=== PATIENT | female | born 1950 | race Caucasian/White ===

== ENCOUNTER → 2016-11-27 | Outpatient (CLI) | payer BC ==
[~2016-11-27] MED LIST: BRAIN HEALTH PO; CALC500C70 PO; COQ-10 PO; MULT-506 PO; VITAMIN D3 PO
--- NOTE | 2016-11-27 11:34 | DIAGNOSTIC IMAGING REPORT ---
RIGHT KNEE 2 VIEWS HISTORY: RIGHT KNEE PAIN Right COMPARISON: None. FINDINGS: There is no fracture or dislocation. Small knee effusion. 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 No radiopaque foreign bodies. IMPRESSION: No fractures. Small knee effusion. Electronically signed by: Juancarlos Covarrubias M.D. 11/27/2016 11:32 AM Dictated Date/Time: 11/27/2016 11:31 AM
== END | disposition home or self-care (01) ==
LOC: C.RADBC 11:16
PROVIDERS: ATTEND Internal Medicine
DX: M25.461 Effusion, right knee (principal); M25.561 Pain in right knee

== ENCOUNTER → 2017-12-08 | Outpatient (CLI) | payer OTHER ==
--- NOTE | 2017-12-09 15:17 | MAMMOGRAPHY REPORT ---
BILATERAL DIGITAL SCREENING MAMMOGRAM TOMOSYNTHESIS WITH CAD: 12/08/2017 CLINICAL HISTORY: Routine screening. The patient reported to the technologist that her left breast lo oks different and appears [place] than the right breast. She also reports new left nipple inversion f or a few months. TECHNIQUE: Breast tomosynthesis in addition to standard 2D mammography was performed. Current study was also evaluated with a Computer Aided Detection (CAD) system. COMPARISON: Comparison is made to exams dated: 10/24/2015 mammogram, 01/09/2013 mammogram, 11/30/2011 ma mmogram, 11/06/2010 mammogram, 10/31/2009 mammogram - [facility], and 08/13/2008. BREAST COMPOSITION: The tissue of both breasts is heterogeneously dense, which may obscure small mas ses. FINDINGS: There are no suspicious masses, calcifications, or areas of architectural distortion noted in either breast. There has been no significant interval change compared to prior exams. Scattered bilateral benign-appearing calcifications are not significantly changed. Right superior breast asymm etry is stable. IMPRESSION: ACR BI-RADS CATEGORY 0: INCOMPLETE EVALUATION: NEED ADDITIONAL IMAGING EVALUATION No mammographic evidence of malignancy in either breast. However, the patient reported to the techno logist that she has left breast fullness and new left nipple inversion. As the recommended workup fo r new nipple inversion involves mammograms and targeted ultrasound, recommend additional imaging eval uation with targeted ultrasound. The patient will be called to schedule an appointment. Approximately 10% of breast cancers are not detected with mammography. A negative mammographic report should not delay biopsy if a clinically suggestive mass is present. Bailee Camp M.D. /:12/08/2017 16:43:00 Respiratory Care Assistant: Carolyn MATHEW(Belen)(Vladislav), [facility] letter sent: Addl Imaging 0 BI-RADS Code: ACR BI-RADS Category 0: Incomplete Evaluation: Need Additional Imaging Evaluation
== END | disposition home or self-care (01) ==
LOC: C.MAMM 14:38
PROVIDERS: ATTEND Internal Medicine Geriatric Medicine
DX: Z12.31 Encounter for screening mammogram for malignant neoplasm of breast (principal); N64.59 Other signs and symptoms in breast

== ENCOUNTER 2024-02-16 20:13 | Inpatient (IN) ==
[2024-02-16 21:12] LABS: Basophils # (auto) 0.03 K/uL (0.00-0.20); Basophils % (auto) 0.3 %; Eosinophils # (auto) 0.19 K/uL (0.00-0.50); Eosinophils % (auto) 1.7 %; Hematocrit (blood only) 41.7 % (37.0-47.0); Hemoglobin 13.9 g/dl (12.0-16.0); Immature Granulocytes # (auto) 0.04 K/uL (0.01-0.20); Immature Granulocytes % (auto) 0.4 %; Lymphocytes # (auto) 2.41 K/uL (1.20-3.40); Lymphocytes % (auto) 21.5 %; Mean Corpuscular Hemoglobin 33.3 pg (25.0-34.0); Mean Corpuscular Hgb Conc 33.3 g/dL (32.0-36.0); Mean Corpuscular Volume 99.8 fL (80.0-100.0); Mean Platelet Volume 8.8 fL (9.4-12.4); Monocytes # (auto) 1.03 K/uL (0.11-0.59); Monocytes % (auto) 9.2 %; Neutrophils # (auto) 7.51 K/uL (1.40-6.50); Neutrophils % (auto) 66.9 %; Platelet Count 291 K/uL (130-400); RDW Coefficient of Variation 13.2 % (11.5-14.5); RDW Standard Deviation 48.7 fL (36.4-46.3); Red Blood Count 4.18 M/uL (4.20-5.40); White Blood Count 11.21 K/ul (4.8-10.8)
[2024-02-16 21:22] LABS: Alanine Aminotransferase 36 U/L (7-52); Albumin Globulin Ratio 1.3 (0.9-2); Albumin Level 4.1 gm/dl (3.4-5.0); Alkaline Phosphatase 189 U/L (34-104); Anion Gap 11 (3-11); Aspartate Aminotransferase 35 U/L (13-39); Bilirubin,Total 0.4 mg/dl (0.2-1.0); Blood Urea Nitrogen 15 mg/dl (6-23); Calcium 9.7 mg/dl (8.6-10.3); Carbon Dioxide 24 mmol/L (21-32); Chloride 103 mmol/L (98-107); Est GFR (African American) 92.9 ml/min; Est GFR (Non-African American) 80.2 ml/min; Globulin 3.1 gm/dl (2.5-4.0); Glucose 134 mg/dl (70-99(Fasting)); Potassium 4.1 mmol/L (3.5-5.1); Sodium 138 mmol/L (136-145); Total Protein 7.2 gm/dl (6.0-8.3)
[2024-02-16 21:29] LABS: Troponin I High Sensitivity 3.1 pg/ml (0-14)
[2024-02-16 21:31] LABS: Partial Thromboplastin Ratio 0.9; Partial Thromboplastin Time 25 Seconds (21-31); Prothrombin Time 10.5 Seconds (9.0-12.0)
--- NOTE | 2024-02-16 22:47 | Emergency Department Note ---
Impression & Plan Pulmonary embolism, Pulmonary embolism with infarction, Back pain, Advanced dementia, Acute UTI, History of subarachnoid hemorrhage ED Provider Note NAME: MAYNOR OLIVARES AGE: 73 SEX: F : 1950 ARRIVES VIA: Walk-In INFORMANT: Patient ED PROVIDER(S): Srinivas Powers MD CHIEF COMPLAINT: Back pain PLAN: Disposition: Admit MEDICAL DECISION MAKING: The patient is a 73-year-old woman with a past medical history of advanced dementia with a recent history of trauma where she fell from a ladder on 12/04 of this year where she suffered a right hip fracture and subarachnoid hemorrhage as well as a temporal bone fracture where she was transferred to [facility] where she was managed for her injuries who presents to the emergency department via walk-in accompanied by her for evaluation of the patient's complaint of left back/flank pain which the patient's reports she only began to complain of today. He describes that the patient had been on Lovenox twice daily when he was at [facility] for rehab and she was on this for approximately a month before it was discontinued. He is not clear of the details as to why this was administered. He is somewhat of a poor historian regarding the patient's recent complicated medical course as when we discussed the "blood in her brain" his initial response was that she did not have blood in her brain and recalls being told that her CT scans "were good". Upon further discussion he admits that it was a very stressful time and he may have missed some of these details. He did recall that she had a skull fracture "behind her ear". Of note, the patient did arrive to emergency department during time of high volume, acuity and prolonged emergency department waiting times. Critical pathways initiated from triage. On evaluation the patient medical distress, afebrile with heart rate in the 80s- 100s and O2 saturation 91-94% on room air with normal respiratory effort and otherwise stable vital signs. She appears clinically dry. Lungs with diminished breath sounds of left mid lung ziegler and otherwise clear. EKG without overt acute ischemia. CXR negative with left midlung field airspace opacity, which correlates with infarct on CT per my preliminary independent interpretation. WBC 11.2 K with neutrophil predominance but no left shift, nonspecific. H/H and platelets within normal limits. Chemistry without metabolic acidosis. Electrolytes and LFTs unremarkable. High-sensitivity troponin 3.1, within normal limits. UA is suspicious for infection with positive nitrites, WBCs and 4+ bacteria. CT a of the chest was performed and demonstrates extensive bilateral pulmonary emboli involving bilateral main pulmonary arteries, segmental and subsegmental levels. There is borderline right heart strain with a one-to-one LV/RV ratio. Additional focal consolidation consistent with pulmonary infarct. Findings reviewed with the patient's at the bedside and we did discuss at length the risks and benefits of treatment given the patient's recent subarachnoid hemorrhage. We did discuss that even if the patient's CAT scan of her head which was subsequently ordered does not show evidence of persistence of her prior subarachnoid hemorrhage the possibility of this recurring does exist. He concurs that if this were to happen he would not want and the patient would not want surgical intervention as he does understand that the patient is considered a poor candidate for additional surgeries and would be unlikely to survive as he understood this risk when the patient had surgery for her hip fracture. He is in agreement with admission to this facility for treatment for the patient's pulmonary embolism at this time. Case was discussed with KO Menendez hospitalist, who will evaluate the patient for admission. CT of the head subsequent completed and while limited due to residual IV contrast from prior study, there is no evidence of persistence of SAH. Heparin initiated. Further management per admitting team. Triage Nursing notes reviewed and agree them. Prior/external medical records reviewed Vital Signs: reviewed Differential diagnosis: Cardiac ischemia, aortic dissection, pulmonary embolism, pneumothorax, pneumonia, pericarditis, myocarditis, esophageal rupture, GERD, cholecystitis, pancreatitis, musculoskeletal, as well as other pathologies. ER treatment provided: See below. Diagnostics interpreted by me: ECG: Sinus tachycardia, 104 bpm, no ectopy, no overt ST elevation or depression, QTc 436, QRS 78. Cardiac Monitoring: An order for continuous cardiac monitoring was placed and demonstrated Sinus tachycardia, 104 bpm, no ectopy. Laboratory studies: See below Imaging studies: See below Consultation(s): KO Menendez hospitalist HPI: The patient is a 73-year-old woman with a past medical history of advanced dementia with a recent history of trauma where she fell from a ladder on 12/04 of this year where she suffered a right hip fracture and subarachnoid hemorrhage as well as a temporal bone fracture where she was transferred to [facility] where she was managed for her injuries who presents to the emergency department via walk-in accompanied by her for evaluation of the patient's complaint of left back/flank pain which the patient's reports she only began to complain of today. He describes that the patient had been on Lovenox twice daily when he was at [facility] for rehab and she was on this for approximately a month before it was discontinued. He is not clear of the details as to why this was administered. He is somewhat of a poor historian regarding the patient's recent complicated medical course as when we discussed the "blood in her brain" his initial response was that she did not have blood in her brain and recalls being told that her CT scans "were good". Upon further discussion he admits that it was a very stressful time and he may have missed some of these details. He did recall that she had a skull fracture "behind her ear". ROS: See above HPI for pertinent positives & negatives. A total of 10 systems reviewed and were otherwise negative. VITALS:See Below PHYSICAL EXAMINATION: GENERAL: Awake, alert, in no distress HENT: Normocephalic, atraumatic. Oropharynx unremarkable. EYES: Normal conjunctiva. Sclera non-icteric. NECK: Supple. No nuchal rigidity. FROM. No JVD. RESPIRATORY: Diminished breath sounds of left mid to lower lung ziegler and otherwise clear. CARDIAC: Regular rate, normal rhythm. Extremities warm and well perfused. Pulses equal. ABDOMEN: Soft, non-distended. No tenderness to palpation. No rebound or guarding. No masses. MUSCULOSKELETAL: Chest examination reveals no tenderness. The back is symmetrical on inspection without obvious abnormality. There is no CVA tenderness to palpation. No joint edema. LOWER EXTREMITIES: Calves are equal size bilaterally and non-tender. No edema. No discoloration. NEURO: Confused at patient's baseline for advanced dementia. No focal sensory or motor deficits noted. Moving all extremities equally. SKIN: No rash or jaundice noted. ED COURSE: Critical Care: I have personally spent greater than 35 minutes of critical care time in the direct management of this patient. This includes bedside care, interpretation of diagnostic studies, and testing, discussion with consultants, patient, and family members, and other required patient management activities. This 35 minutes is in excess of all separately billable procedures. Srinivas Powers MD Past Med/Surg History Problem List (Updated 02/17/24 @ 07:02 by Srinivas Powers MD) History of subarachnoid hemorrhage (Acute) Acute UTI (Acute) Advanced dementia (Acute) Back pain (Acute) Pulmonary embolism with infarction (Acute) Pulmonary embolism (Acute) Subdural hemorrhage Traumatic subarachnoid hemorrhage Hip fracture, right (12/05/23) displaced right intertrochanteric femur fracture from a fall off a ladder-had orthopedic surgery at [facility] in [place] Dementia in other diseases classified elsewhere, unspecified severity, without behavioral disturbance, psychotic disturbance, mood disturbance, and anxiety Urinary incontinence Urinary urgency Dyslipidemia Medical History (Updated 02/17/24 @ 07:02 by Srinivas Powers MD) Hx of fracture of right hip (~11/2023) Intramedullary nail fixation right hip History of colon polyps Poor historian pt had difficulty remembering some of her health status/issues when asked 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 Surgical History History of tooth extraction Hx of colonoscopy with polypectomy 04/2021 repeat 5 yrs S/P tonsillectomy and adenoids Family History Father Prostate cancer Dementia Hypertension Mother Diabetes Heart disease Hypertension Grandmother Breast cancer Grandmother (Maternal) Myocardial infarction Other No family history of adverse response to anesthesia Denies family history of Ovarian cancer Lung cancer Colorectal cancer Social History Smoking Status: Unknown if ever smoked Second Hand Exposure: No; Do You Dip or Chew Tobacco: No; Hx Alcohol Use: No Hx Substance Use: No Preferred Language: [place] Communication Ability: Impaired Communication Ability Comment: pt has history of dementia and struggles to follow commands but is able Visual Impairment: Limited Hearing Ability: Normal Activity Aide Required: No Beliefs That Will Affect Care: None marital status: Current Living Situation: Spouse and Family current occupational status: employed 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 How many Children do You have: 2 Other Information That Helps Us Care for You: No Feels Safe at Home: Yes Safety Concerns: Feels Safe At This Time Childhood Exposure to Second-Hand Smoke: Yes caffeine: Yes (very seldom) Dental Care, Regularly: Yes Physical Activity Frequency: Does not Exercise Seatbelt Use: always Sunscreen Use: No Assistive Devices: Walker Allergies Allergies Allergy/AdvReac Type Severity Reaction Status Date / Time No Known Drug Allergies Allergy 0 Verified 02/17/24 01:23 Home Meds Home Medications Medication Instructions Recorded Confirmed Unknown Acid Reflux Med 1 tab PO DAILY 02/17/24 02/17/24 acetaminophen 500 mg tablet 1,000 mg PO TID 02/17/24 02/17/24 (Tylenol Extra Strength) memantine 10 mg tablet 10 mg PO BID 02/17/24 02/17/24 Results & Data (ED) Vital Signs Vital Signs - 24 hr 02/16/24 20:19 02/16/24 22:23 02/16/24 22:23 Temperature 37.0 C Temperature Source Oral Pulse Rate 100 H Pulse Rate [Apical] 82 Pulse Rhythm [Apical] Pulse Strength [Apical] Respiratory Rate 20 13 Respiratory Effort / Characteristics Non-Labored Spontaneous Respiratory Depth Normal Respiratory Pattern Regular Blood Pressure 128/87 Blood Pressure [Right Arm] 114/65 Blood Pressure Mean 100 Blood Pressure Mean [Right Arm] 81 Blood Pressure Position [Right Arm] Pulse Oximetry 92 93 92 Oxygen Delivery Method Room Air Room Air Room Air Sepsis Recent Fever Within 48 Hours No Sepsis New/Unexplained Change in Mental Status No Sepsis Action Taken by Nursing No Action Required 02/16/24 22:23 02/16/24 22:31 02/16/24 22:59 Temperature Temperature Source Pulse Rate 83 81 Pulse Rate [Apical] 79 Pulse Rhythm [Apical] Pulse Strength [Apical] Respiratory Rate 20 19 Respiratory Effort / Characteristics Non-Labored Spontaneous Respiratory Depth Normal Respiratory Pattern Regular Blood Pressure Blood Pressure [Right Arm] 132/80 Blood Pressure Mean Blood Pressure Mean [Right Arm] 97 Blood Pressure Position [Right Arm] Pulse Oximetry 91 93 Oxygen Delivery Method Room Air Room Air Sepsis Recent Fever Within 48 Hours Sepsis New/Unexplained Change in Mental Status Sepsis Action Taken by Nursing 02/17/24 02:00 02/17/24 02:42 Temperature Temperature Source Pulse Rate 86 Pulse Rate [Apical] 88 Pulse Rhythm [Apical] Regular Pulse Strength [Apical] Normal Respiratory Rate 18 Respiratory Effort / Characteristics Non-Labored Spontaneous Respiratory Depth Normal Respiratory Pattern Regular Blood Pressure Blood Pressure [Right Arm] 157/98 H Blood Pressure Mean Blood Pressure Mean [Right Arm] 117 Blood Pressure Position [Right Arm] Lying Pulse Oximetry 93 Oxygen Delivery Method Room Air Sepsis Recent Fever Within 48 Hours Sepsis New/Unexplained Change in Mental Status Sepsis Action Taken by Nursing Laboratory Data Attestation: I reviewed the patient's lab results. 02/16/24 20:32 02/16/24 20:32 Lab Results 02/16/24 02/17/24 Range/Units 20:32 00:53 WBC 11.21 H (4.8-10.8) K/ul RBC 4.18 L (4.20-5.40) M/uL Hgb 13.9 (12.0-16.0) g/dl Hct 41.7 (37.0-47.0) % MCV 99.8 (80.0-100.0) fL MCH 33.3 (25.0-34.0) pg MCHC 33.3 (32.0-36.0) g/dL RDW Std Deviation 48.7 H (36.4-46.3) fL RDW Coeff of [place] 13.2 (11.5-14.5) % Plt Count 291 (130-400) K/uL MPV 8.8 L (9.4-12.4) fL Immature Gran % (Auto) 0.4 % Neut % (Auto) 66.9 % Lymph % (Auto) 21.5 % [place] % (Auto) 9.2 % Eos % (Auto) 1.7 % Baso % (Auto) 0.3 % Neut # (Auto) 7.51 H (1.40-6.50) K/uL Lymph # (Auto) 2.41 (1.20-3.40) K/uL [place] # (Auto) 1.03 H (0.11-0.59) K/uL Eos # (Auto) 0.19 (0.00-0.50) K/uL Baso # (Auto) 0.03 (0.00-0.20) K/uL Immature Gran # (Auto) 0.04 (0.01-0.20) K/uL PT 10.5 (9.0-12.0) Seconds INR 1.0 (0.9-1.1) APTT 25 (21-31) Seconds PTT Ratio 0.9 Sodium 138 (136-145) mmol/L Potassium 4.1 (3.5-5.1) mmol/L Chloride 103 (98-107) mmol/L Carbon Dioxide 24 (21-32) mmol/L Anion Gap 11 (3-11) BUN 15 (6-23) mg/dl Creatinine 0.75 (0.6-1.2) mg/dl Est Cr Clr Drug Dosing Not Reportable Est GFR ( Amer) 92.9 ml/min Est GFR (Non-Af Amer) 80.2 ml/min BUN/Creatinine Ratio 20.0 (10-20) Glucose 134 H (70-99(Fasting)) mg/dl Calcium 9.7 (8.6-10.3) mg/dl Total Bilirubin 0.4 (0.2-1.0) mg/dl AST 35 (13-39) U/L ALT 36 (7-52) U/L Alkaline Phosphatase 189 H (34-104) U/L Troponin I High Sens 3.1 (0-14) pg/ml Total Protein 7.2 (6.0-8.3) gm/dl Albumin 4.1 (3.4-5.0) gm/dl Globulin 3.1 (2.5-4.0) gm/dl Albumin/Globulin Ratio 1.3 (0.9-2) Urine Color Yellow Urine Appearance Clear (Clear) Urine pH 6.5 (4.5-7.5) Ur Specific [place] 1.034 H (1.000-1.030) Urine Protein Negative (Negative) Urine Glucose (UA) Negative (Negative) Urine Ketones Negative (Negative) Urine Blood Trace H (Negative) Urine Nitrite Positive A (Negative) Urine Bilirubin Negative (Negative) Urine Urobilinogen Negative (Negative) Ur Leukocyte Esterase 1+ H (Negative) Urine WBC (Auto) 11-20 H (0-5) /hpf Urine RBC (Auto) 0-2 (0-2) /hpf U Hyaline Cast (Auto) 0-2 (0-2) /lpf U Epithel Cells (Auto) 0-2 (0-2) /hpf Urine Bacteria (Auto) 4+ H (None Seen) Administered Medications Heparin Sodium/Dextrose (Heparin Sodium/Dextrose) 25,000 units in 500 mls @ 14 mls/hr IV .Q24H [facility], 1928–1983; Protocol Stop: 02/17/24 09:00 Last Admin: 02/17/24 04:28 Dose: 700 units/hr, 14 mls/hr Documented By: EMB Co-signed By: BRET Lactated Ringer's (Lr) 1,000 mls @ 80 mls/hr IV .[id number] OLIVIER Stop: 02/17/24 17:59 Last Admin: 02/17/24 05:58 Dose: 80 mls/hr Documented By: BRET Discontinued Medications Heparin Sodium (Porcine) (Heparin Sod (Porcine) 1000 Unit/Ml) 1 units IV NOW ONE Stop: 02/17/24 03:37 Last Admin: 02/17/24 04:27 Dose: 4,000 units Documented By: BELLE Co-signed By: BRET Heparin Sodium/Dextrose (Heparin Iv Adult Wt-Based Low-Dose W/ Initial Bolus Protocol) 1 each IV NOW STA; Protocol Stop: 02/17/24 03:21 Last Admin: 02/17/24 05:29 Dose: Not Given Documented By: BRET Sodium Chloride (Nss) 1,000 mls @ 999 mls/hr IV .[id number] ONE Stop: 02/16/24 23:39 Last Infusion: 02/17/24 00:58 Dose: Infused Documented By: Admin: 02/16/24 22:57 Dose: 999 mls/hr Documented By: SANA Acetaminophen (Ofirmev) 1,000 mg in 100 mls @ 400 mls/hr IV NOW STA Stop: 02/16/24 22:54 Last Admin: 02/16/24 22:56 Dose: Not Given Documented By: SANA Ceftriaxone Sodium (Rocephin) 2,000 mg in 50 mls @ 100 mls/hr IV NOW STA Stop: 02/17/24 03:49 Last Infusion: 02/17/24 04:58 Dose: Infused Documented By: Admin: 02/17/24 04:27 Dose: 100 mls/hr Documented By: BELLE Ioversol (Optiray 320 125ml) 118 ml IV ONCE ONE Stop: 02/17/24 00:19 Last Admin: 02/17/24 00:19 Dose: 118 ml Documented By: MARTHA Imaging Data Radiologist's Impression: Abdomen/Pelvis CT 02/16/24 22:39 Exam(s): CT ABDOMEN + PELVIS With Contrast IV Amt: 118 ml opti 320 EXAM: CT Abdomen and Pelvis With Intravenous Contrast CLINICAL HISTORY: left flank pain. TECHNIQUE: Axial computed tomography images of the abdomen and pelvis with intravenous contrast. CTDI is 26.9 mGy and DLP is 1965.75 mGy-cm. Automated exposure control was utilized for the study. A dose lowering technique was utilized adhering to the principles of ALARA. CONTRAST: Patient received 118 ml opti 320 of IV contrast COMPARISON: CT abdomen and pelvis with contrast dated 12/05/2023 FINDINGS: Limitations: There is respiratory artifact, which degrades image quality on multiple image slices. Lung bases: For significant findings regarding the lung bases, please see the CT report of the chest performed concurrently. ABDOMEN: Liver: Unremarkable. No mass. Gallbladder and bile ducts: Unremarkable. No calcified stones. No ductal dilation. Pancreas: Unremarkable. No mass. No ductal dilation. Spleen: Unremarkable. No splenomegaly. Adrenals: Unremarkable. No mass. Kidneys and ureters: The kidneys demonstrate normal enhancement without pyelonephritis. Parapelvic renal cysts noted. No obstructive ureteral stones. Stomach and bowel: Stomach is predominantly decompressed. Mucosal prominence of the stomach is presumed related to underdistention. No evidence for bowel obstruction. Scattered diverticulosis without evidence for diverticulitis. Moderate stool burden. PELVIS: Appendix: A normal caliber retrocecal appendix is noted. Bladder: Unremarkable. No mass. Reproductive: Prominent left ovarian vein measuring up to 9 mm. ABDOMEN and PELVIS: Intraperitoneal space: Unremarkable. No free air. No significant fluid collection. Bones/joints: No acute osseous abnormality with chronic loss of height involving the superior endplate at L1 level. Grade 1 anterolisthesis of L4 on L5, stable. No dislocation. Soft tissues: Unremarkable. Vasculature: See above. The aorta is normal in caliber without dissection or aneurysm. Lymph nodes: Unremarkable. No enlarged lymph nodes. IMPRESSION: 1. No evidence for bowel obstruction. Scattered diverticulosis without evidence for diverticulitis. Moderate stool burden. No free intraperitoneal fluid or pneumoperitoneum. 2. The kidneys demonstrate normal enhancement without pyelonephritis. Parapelvic renal cysts noted. No obstructive ureteral stones. No bladder calcifications. 3. Prominent left ovarian vein measuring up to 9 mm. Statistically this is an incidental finding. However, ovarian varicosities have been known to cause vague clinical pelvic symptoms. Electronically signed by: Pradeep Alejandra MD 02/17/24 03:02 AM Chest CTA 02/16/24 22:39 CR Exam(s): CTA CHEST IV Amt: 118 ml opti 320 EXAM: CT Angiography Chest With Intravenous Contrast CLINICAL HISTORY: left cp, r/o PE. TECHNIQUE: Axial computed tomographic angiography images of the chest with intravenous contrast. CTDI is 26.9 mGy and DLP is 1965.7 mGy-cm. Automated exposure control was utilized for the study. A dose lowering technique was utilized adhering to the principles of ALARA. MIP reconstructed images were created and reviewed. COMPARISON: No relevant prior studies available. FINDINGS: Pulmonary arteries: Bilateral pulmonary emboli extending from the distal right and distal left main pulmonary arteries into the proximal segmental and subsegmental branch serving both lungs, left greater than right. Aorta: The thoracic aorta is normal in caliber without dissection or aneurysm. Lungs: Dependent subsegmental changes in involving both lungs. In addition, there is ill-defined ground-glass opacity in the peripheral aspect of the posterior lateral left upper lobe. Pleural space: Unremarkable. No significant effusion. No pneumothorax. Heart: Cardiac chambers are upper normal limits. The RV/LV ratio is 1 on reformatted imaging through the cardiac chambers. No pericardial effusion. Bones/joints: No acute fracture. No dislocation. Soft tissues: Unremarkable. Lymph nodes: Unremarkable. No enlarged lymph nodes. IMPRESSION: 1. Bilateral pulmonary emboli extending from the distal right and distal left main pulmonary arteries into the proximal segmental and subsegmental branch serving both lungs, left greater than right. Oblique imaging through the cardiac chambers demonstrates borderline right heart strain with the RV/LV ratio at 1. 2. Dependent subsegmental changes in involving both lungs. In addition, there is ill-defined ground-glass opacity in the peripheral aspect of the posterior lateral left upper lobe. Suspect a CT equivalent of a Cooper's hump in this region. No pleural effusion or pneumothorax. Communications: Call Doctor Pulmonary Embolism Electronically signed by: Pradeep Alejandra MD 02/17/24 02:[address] 02/17/24 03:06 Exam(s): CT HEAD Without Contrast EXAM: CT Head Without Intravenous Contrast CLINICAL HISTORY: history of SAH, re-evaluate. TECHNIQUE: Axial computed tomography images of the head/brain without intravenous contrast. CTDI is 75.29 mGy and DLP is 1250.21 mGy-cm. Automated exposure control was utilized for the study. A dose lowering technique was utilized adhering to the principles of ALARA. COMPARISON: CT head without contrast performed 12/05/2023 FINDINGS: Brain: There is residual intravascular contrast which limits evaluation for subtle subarachnoid hemorrhage. Diffuse parenchymal involutional changes with prominence of the cerebral sulci and sylvian fissures, most prominent involving the anterior left temporal region and left sylvian fissure. Ventricles: No midline shift. The ventricles are stable and size with slight asymmetric ex vacuo dilatation of the left lateral ventricle. The anterior transverse diameter of the third ventricle measures 11 mm from 10 mm previously. Bones/joints: Stable nondisplaced skull fracture with lucency through the left petrous ridge and mastoid air cells with minimal mastoid effusions, stable. The fracture extends superiorly to involve the left parietal temporal region, similar to the previous examination. No interval new skull fracture. Soft tissues: The previously noted soft tissue swelling overlying the skull fracture has resolved. Vasculature: Asymmetric hyperdensity in the right sylvian fissure is presumed related to vascular branches and less prominent atrophy when compared to the contralateral sylvian fissure. No intraparenchymal hematoma. No new mass effect. Sinuses: Unremarkable as visualized. No acute sinusitis. Mastoid air cells: Trace left mastoid effusions in the region of the temporal bone fracture. No right-sided mastoid effusions noted. IMPRESSION: 1. There is residual intravascular contrast which limits evaluation for subtle subarachnoid hemorrhage. No definite evidence for recurrent subarachnoid hemorrhage. No intraparenchymal hemorrhagic collection identified. 2. Chronic underlying parenchymal involutional changes, similar to the previous examination. No new mass effect or midline shift. 3. The previously noted skull fracture is again identified without interval healing. No interval new skull fracture identified. The previously noted overlying soft tissue swelling is resolved. Electronically signed by: Pradeep Alejandra MD 02/17/24 05:32 AM Abdomen/Pelvis CT 02/16/24 22:39 Exam(s): CT ABDOMEN + PELVIS With Contrast IV Amt: 118 ml opti 320 EXAM: CT Abdomen and Pelvis With Intravenous Contrast CLINICAL HISTORY: left flank pain. TECHNIQUE: Axial computed tomography images of the abdomen and pelvis with intravenous contrast. CTDI is 26.9 mGy and DLP is 1965.75 mGy-cm. Automated exposure control was utilized for the study. A dose lowering technique was utilized adhering to the principles of ALARA. CONTRAST: Patient received 118 ml opti 320 of IV contrast COMPARISON: CT abdomen and pelvis with contrast dated 12/05/2023 FINDINGS: Limitations: There is respiratory artifact, which degrades image quality on multiple image slices. Lung bases: For significant findings regarding the lung bases, please see the CT report of the chest performed concurrently. ABDOMEN: Liver: Unremarkable. No mass. Gallbladder and bile ducts: Unremarkable. No calcified stones. No ductal dilation. Pancreas: Unremarkable. No mass. No ductal dilation. Spleen: Unremarkable. No splenomegaly. Adrenals: Unremarkable. No mass. Kidneys and ureters: The kidneys demonstrate normal enhancement without pyelonephritis. Parapelvic renal cysts noted. No obstructive ureteral stones. Stomach and bowel: Stomach is predominantly decompressed. Mucosal prominence of the stomach is presumed related to underdistention. No evidence for bowel obstruction. Scattered diverticulosis without evidence for diverticulitis. Moderate stool burden. PELVIS: Appendix: A normal caliber retrocecal appendix is noted. Bladder: Unremarkable. No mass. Reproductive: Prominent left ovarian vein measuring up to 9 mm. ABDOMEN and PELVIS: Intraperitoneal space: Unremarkable. No free air. No significant fluid collection. Bones/joints: No acute osseous abnormality with chronic loss of height involving the superior endplate at L1 level. Grade 1 anterolisthesis of L4 on L5, stable. No dislocation. Soft tissues: Unremarkable. Vasculature: See above. The aorta is normal in caliber without dissection or aneurysm. Lymph nodes: Unremarkable. No enlarged lymph nodes. IMPRESSION: 1. No evidence for bowel obstruction. Scattered diverticulosis without evidence for diverticulitis. Moderate stool burden. No free intraperitoneal fluid or pneumoperitoneum. 2. The kidneys demonstrate normal enhancement without pyelonephritis. Parapelvic renal cysts noted. No obstructive ureteral stones. No bladder calcifications. 3. Prominent left ovarian vein measuring up to 9 mm. Statistically this is an incidental finding. However, ovarian varicosities have been known to cause vague clinical pelvic symptoms. Electronically signed by: Pradeep Alejandra MD 02/17/24 03:02 AM Chest CTA 02/16/24 22:39 CR Exam(s): CTA CHEST IV Amt: 118 ml opti 320 EXAM: CT Angiography Chest With Intravenous Contrast CLINICAL HISTORY: left cp, r/o PE. TECHNIQUE: Axial computed tomographic angiography images of the chest with intravenous contrast. CTDI is 26.9 mGy and DLP is 1965.7 mGy-cm. Automated exposure control was utilized for the study. A dose lowering technique was utilized adhering to the principles of ALARA. MIP reconstructed images were created and reviewed. COMPARISON: No relevant prior studies available. FINDINGS: Pulmonary arteries: Bilateral pulmonary emboli extending from the distal right and distal left main pulmonary arteries into the proximal segmental and subsegmental branch serving both lungs, left greater than right. Aorta: The thoracic aorta is normal in caliber without dissection or aneurysm. Lungs: Dependent subsegmental changes in involving both lungs. In addition, there is ill-defined ground-glass opacity in the peripheral aspect of the posterior lateral left upper lobe. Pleural space: Unremarkable. No significant effusion. No pneumothorax. Heart: Cardiac chambers are upper normal limits. The RV/LV ratio is 1 on reformatted imaging through the cardiac chambers. No pericardial effusion. Bones/joints: No acute fracture. No dislocation. Soft tissues: Unremarkable. Lymph nodes: Unremarkable. No enlarged lymph nodes. IMPRESSION: 1. Bilateral pulmonary emboli extending from the distal right and distal left main pulmonary arteries into the proximal segmental and subsegmental branch serving both lungs, left greater than right. Oblique imaging through the cardiac chambers demonstrates borderline right heart strain with the RV/LV ratio at 1. 2. Dependent subsegmental changes in involving both lungs. In addition, there is ill-defined ground-glass opacity in the peripheral aspect of the posterior lateral left upper lobe. Suspect a CT equivalent of a Cooper's hump in this region. No pleural effusion or pneumothorax. Communications: Call Doctor Pulmonary Embolism Electronically signed by: Pradeep Alejandra MD 02/17/24 02:[address] 02/17/24 03:06 Exam(s): CT HEAD Without Contrast EXAM: CT Head Without Intravenous Contrast CLINICAL HISTORY: history of SAH, re-evaluate. TECHNIQUE: Axial computed tomography images of the head/brain without intravenous contrast. CTDI is 75.29 mGy and DLP is 1250.21 mGy-cm. Automated exposure control was utilized for the study. A dose lowering technique was utilized adhering to the principles of ALARA. COMPARISON: CT head without contrast performed 12/05/2023 FINDINGS: Brain: There is residual intravascular contrast which limits evaluation for subtle subarachnoid hemorrhage. Diffuse parenchymal involutional changes with prominence of the cerebral sulci and sylvian fissures, most prominent involving the anterior left temporal region and left sylvian fissure. Ventricles: No midline shift. The ventricles are stable and size with slight asymmetric ex vacuo dilatation of the left lateral ventricle. The anterior transverse diameter of the third ventricle measures 11 mm from 10 mm previously. Bones/joints: Stable nondisplaced skull fracture with lucency through the left petrous ridge and mastoid air cells with minimal mastoid effusions, stable. The fracture extends superiorly to involve the left parietal temporal region, similar to the previous examination. No interval new skull fracture. Soft tissues: The previously noted soft tissue swelling overlying the skull fracture has resolved. Vasculature: Asymmetric hyperdensity in the right sylvian fissure is presumed related to vascular branches and less prominent atrophy when compared to the contralateral sylvian fissure. No intraparenchymal hematoma. No new mass effect. Sinuses: Unremarkable as visualized. No acute sinusitis. Mastoid air cells: Trace left mastoid effusions in the region of the temporal bone fracture. No right-sided mastoid effusions noted. IMPRESSION: 1. There is residual intravascular contrast which limits evaluation for subtle subarachnoid hemorrhage. No definite evidence for recurrent subarachnoid hemorrhage. No intraparenchymal hemorrhagic collection identified. 2. Chronic underlying parenchymal involutional changes, similar to the previous examination. No new mass effect or midline shift. 3. The previously noted skull fracture is again identified without interval healing. No interval new skull fracture identified. The previously noted overlying soft tissue swelling is resolved. Electronically signed by: Pradeep Alejandra MD 02/17/24 05:32 AM Discharge Plan Visit Data Chief Complaint: Flank Pain Stated Complaint: CONFUSION, BROKEN RT LEG, LT FLANK PAIN ED Provider: Srinivas Powers Discharge Problem: Pulmonary embolism, Pulmonary embolism with infarction, Back pain, Advanced dementia, Acute UTI, History of subarachnoid hemorrhage Discharge Instructions Interventions: ED Discharge Assessment Last Done: 02/17/24 05:25 Discharge Problem: Pulmonary embolism Qualifiers: Pulmonary embolism type: unspecified Chronicity: acute Acute cor pulmonale presence: unspecified Qualified Code(s): I26.99 - Other pulmonary embolism without acute cor pulmonale Back pain Qualifiers: Back pain location: thoracic back pain Chronicity: acute Back pain laterality: left Qualified Code(s): M54.6 - Pain in thoracic spine Advanced dementia Qualifiers: Dementia type: unspecified type Dementia behavioral or psychological symptom: u nspecified whether behavioral, psychotic, or mood disturbance or anxiety Q ualified Code(s): F03.C0 - Unspecified dementia, severe, without behavioral disturbance, psychotic disturbance, mood disturbance, and anxiety
[2024-02-16] MEDS: ACETAMINOPHEN 1,000 MG/100 ML VIAL IV STA (22:56)
[2024-02-16] MEDS: SODIUM CHLORIDE 0.9% 1,000 ML IV ONE (22:57)
[2024-02-17] MEDS: OPTIRAY 320 125ml IV ONE (00:19)
[2024-02-17 01:41] LABS: Appearance Urine Clear (Clear); Bacteria Urine Automated 4+ (None Seen); Bilirubin Urine Negative (Negative); Blood Urine Trace (Negative); Cast Urine Automated 0-2 /lpf (0-2); Color Urine Yellow; Epithelial Cell Urine Auto 0-2 /hpf (0-2); Glucose Urine UA Negative (Negative); Ketones Urine Negative (Negative); Leukocyte Esterase Urine 1+ (Negative); Nitrite Urine Positive (Negative); Protein Urine Negative (Negative); RBC Urine Automated 0-2 /hpf (0-2); Specific Gravity Urine 1.034 (1.000-1.030); Urobilinogen Urine Negative (Negative); pH Urine 6.5 (4.5-7.5)
--- NOTE | 2024-02-17 02:50 | CT Scan Report ---
Exam(s): CTA CHEST IV Amt: 118 ml opti 320 EXAM: CT Angiography Chest With Intravenous Contrast CLINICAL HISTORY: left cp, r/o PE. TECHNIQUE: Axial computed tomographic angiography images of the chest with intravenous contrast. CTDI is 26.9 mGy and DLP is 1965.7 mGy-cm. Automated exposure control was utilized for the study. A dose lowering technique was utilized adhering to the principles of ALARA. MIP reconstructed images were created and reviewed. COMPARISON: No relevant prior studies available. FINDINGS: Pulmonary arteries: Bilateral pulmonary emboli extending from the distal right and distal left main pulmonary arteries into the proximal segmental and subsegmental branch serving both lungs, left greater than right. Aorta: The thoracic aorta is normal in caliber without dissection or aneurysm. Lungs: Dependent subsegmental changes in involving both lungs. In addition, there is ill-defined ground-glass opacity in the peripheral aspect of the posterior lateral left upper lobe. Pleural space: Unremarkable. No significant effusion. No pneumothorax. Heart: Cardiac chambers are upper normal limits. The RV/LV ratio is 1 on reformatted imaging through the cardiac chambers. No pericardial effusion. Bones/joints: No acute fracture. No dislocation. Soft tissues: Unremarkable. Lymph nodes: Unremarkable. No enlarged lymph nodes. IMPRESSION: 1. Bilateral pulmonary emboli extending from the distal right and distal left main pulmonary arteries into the proximal segmental and subsegmental branch serving both lungs, left greater than right. Oblique imaging through the cardiac chambers demonstrates borderline right heart strain with the RV/LV ratio at 1. 2. Dependent subsegmental changes in involving both lungs. In addition, there is ill-defined ground-glass opacity in the peripheral aspect of the posterior lateral left upper lobe. Suspect a CT equivalent of a Cooper's hump in this region. No pleural effusion or pneumothorax. Communications: Call Doctor Pulmonary Embolism Electronically signed by: Pradeep Alejandra MD 02/17/24 02:49 AM
--- NOTE | 2024-02-17 03:03 | CT Scan Report ---
Exam(s): CT ABDOMEN + PELVIS With Contrast IV Amt: 118 ml opti 320 EXAM: CT Abdomen and Pelvis With Intravenous Contrast CLINICAL HISTORY: left flank pain. TECHNIQUE: Axial computed tomography images of the abdomen and pelvis with intravenous contrast. CTDI is 26.9 mGy and DLP is 1965.75 mGy-cm. Automated exposure control was utilized for the study. A dose lowering technique was utilized adhering to the principles of ALARA. CONTRAST: Patient received 118 ml opti 320 of IV contrast COMPARISON: CT abdomen and pelvis with contrast dated 12/05/2023 FINDINGS: Limitations: There is respiratory artifact, which degrades image quality on multiple image slices. Lung bases: For significant findings regarding the lung bases, please see the CT report of the chest performed concurrently. ABDOMEN: Liver: Unremarkable. No mass. Gallbladder and bile ducts: Unremarkable. No calcified stones. No ductal dilation. Pancreas: Unremarkable. No mass. No ductal dilation. Spleen: Unremarkable. No splenomegaly. Adrenals: Unremarkable. No mass. Kidneys and ureters: The kidneys demonstrate normal enhancement without pyelonephritis. Parapelvic renal cysts noted. No obstructive ureteral stones. Stomach and bowel: Stomach is predominantly decompressed. Mucosal prominence of the stomach is presumed related to underdistention. No evidence for bowel obstruction. Scattered diverticulosis without evidence for diverticulitis. Moderate stool burden. PELVIS: Appendix: A normal caliber retrocecal appendix is noted. Bladder: Unremarkable. No mass. Reproductive: Prominent left ovarian vein measuring up to 9 mm. ABDOMEN and PELVIS: Intraperitoneal space: Unremarkable. No free air. No significant fluid collection. Bones/joints: No acute osseous abnormality with chronic loss of height involving the superior endplate at L1 level. Grade 1 anterolisthesis of L4 on L5, stable. No dislocation. Soft tissues: Unremarkable. Vasculature: See above. The aorta is normal in caliber without dissection or aneurysm. Lymph nodes: Unremarkable. No enlarged lymph nodes. IMPRESSION: 1. No evidence for bowel obstruction. Scattered diverticulosis without evidence for diverticulitis. Moderate stool burden. No free intraperitoneal fluid or pneumoperitoneum. 2. The kidneys demonstrate normal enhancement without pyelonephritis. Parapelvic renal cysts noted. No obstructive ureteral stones. No bladder calcifications. 3. Prominent left ovarian vein measuring up to 9 mm. Statistically this is an incidental finding. However, ovarian varicosities have been known to cause vague clinical pelvic symptoms. Electronically signed by: Pradeep Alejandra MD 02/17/24 03:02 AM
[2024-02-17] MEDS ORDERED: POLYETHYLENE (MIRALAX) 17 GM PACK PO PRN (03:43)
[2024-02-17] MEDS ORDERED: ONDANSETRON INJ 2 MG/ML 2 ML VIAL IV PRN (03:43)
--- NOTE | 2024-02-17 04:15 | History & Physical Report ---
Date of Service February 17, 2024 Assessment & Plan (1) Pulmonary embolism: Plan: 73 F with PMH advanced dementia, recent hx subarachnoid, subdural hemorrhage 2/2 fall from ladder in November, who presented with left-sided flank pain and found to have multiple segmental, subsegmental PEs bilaterally. Now stable, admitted for acute management of bilateral PEs. Bilateral Pulmonary Embolism -Multiple, bilateral, segmental, subsegmental, L >R w/ borderline R heart strain. Intermediate/aggressive risk. -WBC 11.2. hs-troponin, electrolytes, LFTs normal. -Only presenting symptom L flank pain. No chest pain/SOB. Saturating well on room air. Rest of VSS. -Recent history of intracranial hemorrhage as detailed in HPI. However, risk of brain bleed does not outweigh benefits of anticoagulation at this time. -S/p IV heparin loading dose, infusion in ER. * Admit to PCU neurochecks+GCS Q 4 x 24 H * Continue heparin infusion, titrate to PTT target per protocol * Bilateral LE Doppler ultrasound ordered stat awaiting report * Apixaban 10 mg twice daily x 7 days (to start in the AM) * Echocardiogram ordered pending * Tylenol p.o. every 8 hours as needed for pain * Trend PTT, anti-Xa, BMP, CBC a.m. labs Traumatic Subarachnoid Hemorrhage/Subdural Hemorrhage -Suffered in November 2023 after fall from ladder. Patient was taken to [facility], where she was managed nonsurgically, also treated for R hip fracture (s /p repair via intramedullary nail). Discharged to [facility], then home. -No evidence of seizure activity Keppra discontinued at discharge. -Follow-ups with neurosurgery, orthopedic, ENT at [facility], though reports unavailable at time of this note. Also undergoing PT/OT. -Per PCP follow-up, confusion worsened since incident but has been unchanged since discharge. * Neurochecks + GCS Q4, as above Dysuria -UA positive for nitrites, bacteriuria (+), leuk esterase (1+), trace hematuria. -Asymptomatic per , and at bedside on admission. -Sent for urine culture * Await microbiology report Dementia -Since 2020. Stable, per last neurology visit report. -Family history of dementia x 4 generations. Memory deficits word finding difficulty, naming difficultyindependent in ADLs. -Follows with [facility] neurology (Dr. Carlota Gonsalez). * Continue home memantine 10 mg twice daily * Seroquel 50 mg nightly for sleep * Scheduled MiraLAX daily Code: Full code Dispo: PCU FEN/GI: LR @maintenance rate. Heart healthy DVT Prophylaxis: Weight-based heparin infusion s/p loading dose, followed by apixaban 10 mg twice daily PT/OT: Yes Consults: None Case Management: Yes (2) Traumatic subarachnoid hemorrhage: (3) Hip fracture, right: (4) Dementia in other diseases classified elsewhere, unspecified severity, without behavioral disturbance, psychotic disturbance, mood disturbance, and anxiety: (5) Dyslipidemia: History of Present Illness Primary Care Provider: Vaughn JeffersonDO Plata is a 73-year-old woman with past medical history significant for advanced dementia, and a recent medical history of R hip fracture, subarachnoid hemorrhage, temporal bone fracture 2/2 trauma sustained after falling from ladder on 12/04 who presented to the ER with her last night with a complaint of left-sided back and flank pain that began a few hours ago. Spoke with over the phone, who explained that she began complaining of left- sided rib pain at approximately 7 PM, but was otherwise fine and went to bed. Patient was awakened by the pain which is worsened, and was now "unbearable." then decided to bring her in for evaluation. He denies chest pain, shortness of breath, or LE pain/swelling. also denies any past medical/family history of blood clots or thrombophilia. ER workup was notable for WBC 11.2, and a UA positive for nitrates, WBC, 4+ bacteria. Hgb, high-sensitivity troponin, electrolytes, LFTs were all unremarkable. CTA chest revealed "bilateral pulmonary emboli extending from the distal right and distal left main pulmonary arteries into the proximal segmental and subsegmental branches are in both lungs, L >R Borderline right heart strain." She received an IV heparin loading dose, and started on the treatment dose the hospitalist service was then consulted for admission. On admission, patient is awake, responsive, and pleasant, but appears confused and disoriented. She denies any acute pain including flank pain, she further denies increased urinary frequency or pain with urination. Allergies Allergy/AdvReac Type Severity Reaction Status Date / Time No Known Drug Allergies Allergy 0 Verified 02/17/24 01:23 Home Medications Medication Instructions Recorded Confirmed Type Unknown Acid Reflux Med 1 tab PO DAILY 02/17/24 02/17/24 History acetaminophen 500 mg tablet 1,000 mg PO TID 02/17/24 02/17/24 History (Tylenol Extra Strength) memantine 10 mg tablet 10 mg PO BID 02/17/24 02/17/24 History Past Med/Surg History Problem List (Updated 02/17/24 @ 04:23 by Irwin Joshua MD) Pulmonary embolism Subdural hemorrhage Traumatic subarachnoid hemorrhage Hip fracture, right (12/05/23) displaced right intertrochanteric femur fracture from a fall off a ladder-had orthopedic surgery at [facility] in [place] Dementia in other diseases classified elsewhere, unspecified severity, without behavioral disturbance, psychotic disturbance, mood disturbance, and anxiety Urinary incontinence Urinary urgency Dyslipidemia Medical History (Updated 02/17/24 @ 04:23 by Irwin Joshua MD) Hx of fracture of right hip (~11/2023) Intramedullary nail fixation right hip History of colon polyps Poor historian pt had difficulty remembering some of her health status/issues when asked 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 Surgical History History of tooth extraction Hx of colonoscopy with polypectomy 04/2021 repeat 5 yrs S/P tonsillectomy and adenoids Family History Father Prostate cancer Dementia Hypertension Mother Diabetes Heart disease Hypertension Grandmother Breast cancer Grandmother (Maternal) Myocardial infarction Other No family history of adverse response to anesthesia Denies family history of Ovarian cancer Lung cancer Colorectal cancer Social History Smoking Status: Unknown if ever smoked Second Hand Exposure: No; Do You Dip or Chew Tobacco: No; Hx Alcohol Use: No Hx Substance Use: No Preferred Language: Croatian Communication Ability: Impaired Communication Ability Comment: pt has history of dementia and struggles to follow commands but is able Visual Impairment: Limited Hearing Ability: Normal District Associate Judge Required: No Beliefs That Will Affect Care: None marital status: Current Living Situation: Spouse and Family current occupational status: employed 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 Normal conjunctiva, anicteric sclera. Oropharynx normal. Respiratory: Normal respiratory effort, CTABL. Cardiovascular: RRR without murmurs, gallops, or rubs. No pedal edema. GI: Soft abdomen with normal bowel sounds heard on auscultation. Nontender x4 quadrants Neuro: Alert and oriented x3. Results & Data Results & Data Vital Signs (Past 12 Hours) Vital Signs Temp Pulse Pulse Resp BP BP Pulse Ox 02/17/24 02:42 86 02/17/24 02:00 88 18 157/98 H 93 02/16/24 22:59 79 19 132/80 93 02/16/24 22:31 81 02/16/24 22:23 83 20 91 02/16/24 22:23 92 02/16/24 22:23 82 13 114/65 93 02/16/24 20:19 37.0 C 100 H 20 128/87 92 O2 Del Method 02/17/24 02:42 02/17/24 02:00 Room Air 02/16/24 22:59 Room Air 02/16/24 22:31 02/16/24 22:23 Room Air 02/16/24 22:23 Room Air 02/16/24 22:23 Room Air 02/16/24 20:19 Room Air Supervising Physician Co-Signing Physician Notes Patient seen and examined, chart reviewed, case discussed with Dr. Joshua and I agree with the assessment and plan as above. Patient with history of TBI following a fall off a ladder on 12/05/23 - had bilateral SAH as well as small right SDH. Completed her rehab and has been at home. Presenting with chest pain - found to have extensive bilateral PEs Exam largely unremarkable - patient HD stable, adequate oxygenation +S1/S2, regular, no m/r/g Lungs CTA, no rales/rhonchi/wheezes Abd soft, NT/ND Ext warm, well perfused Labs and images reviewed Assessment/Plan: Initiate heparin gtt - monitor neuro function Check 2D echo Check bilateral LE dopplers Remainder as above Resident Activity Tracking Resident Involvement: Resident Care Provided Care Provided: Adult Hospital Medicine (1) Pulmonary embolism Pulmonary embolism type: multiple subsegmental (without acute cor pulmonale) Qualified Code(s): I26.94 - Multiple subsegmental pulmonary emboli without acute cor pulmonale
[2024-02-17] MEDS: cefTRIAXone SODIUM 2,000 MG/50 ML BAG IV STA (04:27)
[2024-02-17] MEDS: HEPARIN SOD (PORCINE) 1000 UNIT/ML IV ONE (04:27)
[2024-02-17] MEDS: HEPARIN SODIUM/DEXTROSE 25,000 UNITS/500 ML BAG IV SCH (04:28)
[2024-02-17 04:41] LABS: Partial Thromboplastin Time 26 Seconds (21-31)
[2024-02-17] MEDS: Heparin IV Adult Wt-Based Low-Dose w/ INITIAL Bolus Protocol IV STA (05:29)
--- NOTE | 2024-02-17 05:33 | CT Scan Report ---
Exam(s): CT HEAD Without Contrast EXAM: CT Head Without Intravenous Contrast CLINICAL HISTORY: history of SAH, re-evaluate. TECHNIQUE: Axial computed tomography images of the head/brain without intravenous contrast. CTDI is 75.29 mGy and DLP is 1250.21 mGy-cm. Automated exposure control was utilized for the study. A dose lowering technique was utilized adhering to the principles of ALARA. COMPARISON: CT head without contrast performed 12/05/2023 FINDINGS: Brain: There is residual intravascular contrast which limits evaluation for subtle subarachnoid hemorrhage. Diffuse parenchymal involutional changes with prominence of the cerebral sulci and sylvian fissures, most prominent involving the anterior left temporal region and left sylvian fissure. Ventricles: No midline shift. The ventricles are stable and size with slight asymmetric ex vacuo dilatation of the left lateral ventricle. The anterior transverse diameter of the third ventricle measures 11 mm from 10 mm previously. Bones/joints: Stable nondisplaced skull fracture with lucency through the left petrous ridge and mastoid air cells with minimal mastoid effusions, stable. The fracture extends superiorly to involve the left parietal temporal region, similar to the previous examination. No interval new skull fracture. Soft tissues: The previously noted soft tissue swelling overlying the skull fracture has resolved. Vasculature: Asymmetric hyperdensity in the right sylvian fissure is presumed related to vascular branches and less prominent atrophy when compared to the contralateral sylvian fissure. No intraparenchymal hematoma. No new mass effect. Sinuses: Unremarkable as visualized. No acute sinusitis. Mastoid air cells: Trace left mastoid effusions in the region of the temporal bone fracture. No right-sided mastoid effusions noted. IMPRESSION: 1. There is residual intravascular contrast which limits evaluation for subtle subarachnoid hemorrhage. No definite evidence for recurrent subarachnoid hemorrhage. No intraparenchymal hemorrhagic collection identified. 2. Chronic underlying parenchymal involutional changes, similar to the previous examination. No new mass effect or midline shift. 3. The previously noted skull fracture is again identified without interval healing. No interval new skull fracture identified. The previously noted overlying soft tissue swelling is resolved. Electronically signed by: Pradeep Alejandra MD 02/17/24 05:32 AM
[2024-02-17] MEDS: LACTATED RINGER'S 1,000 ML IV SCH (05:58)
--- NOTE | 2024-02-17 06:46 | Billing Data ---
Date of Service February 17, 2024 Coding Level of Care Code 61038 INT INP/OBS CARE
--- NOTE | 2024-02-17 07:01 | Ultrasound Report ---
BILATERAL LOWER EXTREMITY VENOUS DOPPLER HISTORY: Acute pain and swelling of the lower legs b/l PE COMPARISON STUDY: None. FINDINGS: Within the right lower leg thrombus extends from the mid femoral vein into the popliteal ve in and also involves the posterior tibial and peroneal veins and gastrocnemius veins. Thrombus is occ lusive and likely acute. No left-sided deep venous thrombosis identified. Superficial thrombus noted within the left lesser sa phenous vein at the level of the midcalf extending for a length of greater than 5 cm. IMPRESSION: 1. Extensive right-sided DVT as above. 2. Superficial venous thrombosis of the left lower extremity. ACT 112: Negative or not required by law. Electronically signed by: Sunny Carvajal M.D. 02/17/2024 6:59 AM
--- NOTE | 2024-02-17 07:40 | XRay Report ---
XR chest 1V not portable HISTORY: 73 years-old Female Chest pain, nonspecific COMPARISON: CTA chest of same day TECHNIQUE: AP view of the chest FINDINGS: Cardiac silhouette is enlarged. Pulmonary vascular congestion. No pneumothorax or large pleural effus ion. Mild bibasilar opacities. Left mid lung/lingular airspace consolidation/pulmonary infarct. Sigmo id thoracolumbar scoliosis. IMPRESSION: 1. Cardiomegaly with pulmonary vascular congestion and bibasilar atelectasis. 2. Left mid lung peripheral consolidation compatible with pulmonary infarct related to the patient's extensive pulmonary emboli. ACT 112: Negative or not required by law. The above report was generated using voice recognition software. It may contain grammatical, syntax o r spelling errors. Electronically signed by: Sunny Carvajal M.D. 02/17/2024 7:39 AM
[2024-02-17] MEDS: MEMANTINE HCL 10 MG TAB PO SCH (10:45)
[2024-02-17] MEDS: POLYETHYLENE (MIRALAX) 17 GM PACK PO SCH (10:45)
[2024-02-17] MEDS: APIXABAN 5 MG TABLET PO SCH ×2 (10:45→21:27)
[2024-02-17] MEDS: ACETAMINOPHEN 500 MG TAB PO PRN (10:54)
[2024-02-17 11:19] LABS: ANTI-Xa, UFH(UnfractionatedHep 0.24 IU/ml (0.3-0.7)
--- NOTE | 2024-02-17 15:26 | Hospitalist Progress Note ---
Date of Service February 17, 2024 Assessment & Plan (1) Pulmonary embolism: Plan: Multiple bilateral acute PEs noted on admission, causing some chest discomfort. No evidence of acute coronary syndrome. Heparin drip has been converted to Eliquis 5 mg twice daily. Will avoid 10 mg dosing of Eliquis due to recent subarachnoid hemorrhage. (2) Traumatic subarachnoid hemorrhage: Plan: Associated with a skull fracture suffered from a fall from a ladder in November of this year. There is risk involved with systemic anticoagulation and her is aware. However, treatment benefits currently outweigh risks at this time. Heparin drip has been converted to Eliquis. Will use 5 mg twice daily dosing going forward and avoid the 10 mg dose due to recent subarachnoid hemorrhage (3) Dementia in other diseases classified elsewhere, unspecified severity, without behavioral disturbance, psychotic disturbance, mood disturbance, and anxiety: Plan: Supportive care. Continue current medical management (4) Acute UTI: Plan: Suspected on admission. Urine cultures pending. She remains on intravenous Rocephin, day 1. Previous cultures grew pansensitive E. coli (5) History of subarachnoid hemorrhage: Plan: Occurred in November of this year after falling from a ladder. There is known risk involved with systemic anticoagulation and the is aware. Plan Hopeful discharge to home within the next 24 to 48 hours if stable Admission and Anticipated Discharge Date Admission Date: February 17, 2024 Subjective Pleasantly confused with baseline dementia. No distress. is at the bedside and answers most of the questions. She appears to have a UTI. Urine culture is pending. She remains on Rocephin. She has right lower extremity DVT which is the likely source of the bilateral pulmonary emboli. Heparin drip has been switched to oral Eliquis at 5 mg twice a day. Will avoid 10 mg dosing due to recent subarachnoid hemorrhage. Previous urine cultures grew pansensitive E. coli. She remains on room air. OT and PT assessments have been requested. She currently resides at home with her . Review of Systems 2 Review of Systems: Constitutional-no fever or chills ENT-no blurred vision, no double vision, no epistaxis, no sore throat Respiratory-no cough, no wheezing, no shortness of breath Cardiac-no palpitations, no chest pain, no syncope GI-no nausea, vomiting, diarrhea, melena, hematochezia -no urinary retention, no urinary incontinence, no dysuria, no hematuria Musculoskeletal-no joint pain, no muscle tenderness Skin-no bruising, no rashes, no pruritus Neuro-no isolated weakness, no paresthesia, no weakness Psych-no depression, no anxiety Physical Exam 2 Physical Exam: General-alert and oriented x1, no fever, no chills HEENT-head atraumatic and normocephalic, pupils equal and reactive to light, extraocular muscles intact Neck-no lymphadenopathy or thyromegaly, trachea midline Chest-clear to auscultation. No rales, wheezing or rhonchi Cardiac-regular rate and rhythm, normal S1 and S2 Abdomen-normal bowel sounds, no hepatosplenomegaly Extremities-no cyanosis, clubbing, or edema Neuro-cranial nerves II through XII intact, motor and sensory function within normal limits, strength symmetrical, no focal deficits Psych-normal affect, normal mood Results & Data Results & Data Vital Signs (Past 12 Hours) Vital Signs Temp Pulse Pulse Resp BP Pulse Ox Pulse Ox 02/17/24 11:47 100 H 02/17/24 11:46 37.0 C 87 18 142/86 H 96 02/17/24 10:20 02/17/24 10:00 36.9 C 95 H 22 135/70 94 02/17/24 07:03 88 02/17/24 06:24 89 16 94 02/17/24 05:31 92 H 18 94 02/17/24 04:00 90 18 139/86 96 02/17/24 04:00 96 02/17/24 04:00 88 18 139/86 95 O2 Del Method O2 Del Method 02/17/24 11:47 02/17/24 11:46 Room Air 02/17/24 10:20 Room Air 02/17/24 10:00 Room Air 02/17/24 07:03 02/17/24 06:24 Room Air 02/17/24 05:31 Room Air 02/17/24 04:00 Room Air 02/17/24 04:00 Room Air 02/17/24 04:00 Room Air Laboratory Results 02/16/24 20:32 02/16/24 20:32 PG Care Time/CCT Total # of Minutes Spent Total Time Spent with Patient: Total time spent is greater than 50% in coordination of care (as documented) at patient's floor/unit and/or counseling patient: Coding Level of Care Code 45235 SUB INP/OBS CARE MIN Diagnoses Multiple subsegmental pulmonary emboli without acute cor pulmonale I26.99 Pulmonary embolism type: unspecified Chronicity: acute Acute cor pulmonale presence: unspecified Traumatic subarachnoid hemorrhage S06.6XAA Dementia in other diseases classified elsewhere, unspecified severity, without behavioral disturbance, psychotic disturbance, mood disturbance, and anxiety F02.80 Acute UTI N39.0 History of subarachnoid hemorrhage Z86.79 (1) Pulmonary embolism Pulmonary embolism type: unspecified Chronicity: acute Acute cor pulmonale presence: unspecified Qualified Code(s): I26.99 - Other pulmonary embolism without acute cor pulmonale
--- NOTE | 2024-02-17 19:02 | Electrocardiogram Report ---
Test Reason : Blood Pressure : / mmHG Vent. Rate : 104 BPM Atrial Rate : 104 BPM P-R Int : 164 ms QRS Dur : 078 ms QT Int : 332 ms P-R-T Axes : 028 020 057 degrees QTc Int : 436 ms Sinus tachycardia Possible Left atrial enlargement Borderline ECG When compared with ECG of 05-DEC-2023 20:33, Nonspecific T wave abnormality no longer evident in Inferior leads Confirmed by Kings Hancock ([id number]) on 02/17/2024 7:02:00 PM Referred By: REFERRED SELF Confirmed By:Kings Hancock
--- NOTE | 2024-02-17 19:41 | XCELERA ---
[id number]
[2024-02-17] MEDS: QUEtiapine FUMARATE 25 MG TABLET PO SCH (21:28)
[2024-02-18 07:30] LABS: Basophils # (auto) 0.03 K/uL (0.00-0.20); Basophils % (auto) 0.3 %; Eosinophils # (auto) 0.13 K/uL (0.00-0.50); Eosinophils % (auto) 1.5 %; Hematocrit (blood only) 41.6 % (37.0-47.0); Hemoglobin 13.8 g/dl (12.0-16.0); Immature Granulocytes # (auto) 0.03 K/uL (0.01-0.20); Immature Granulocytes % (auto) 0.3 %; Lymphocytes # (auto) 2.21 K/uL (1.20-3.40); Lymphocytes % (auto) 25.5 %; Mean Corpuscular Hemoglobin 33.3 pg (25.0-34.0); Mean Corpuscular Hgb Conc 33.2 g/dL (32.0-36.0); Mean Corpuscular Volume 100.2 fL (80.0-100.0); Mean Platelet Volume 8.5 fL (9.4-12.4); Monocytes # (auto) 0.94 K/uL (0.11-0.59); Monocytes % (auto) 10.8 %; Neutrophils # (auto) 5.34 K/uL (1.40-6.50); Neutrophils % (auto) 61.6 %; Platelet Count 275 K/uL (130-400); RDW Standard Deviation 48.1 fL (36.4-46.3); Red Blood Count 4.15 M/uL (4.20-5.40); White Blood Count 8.68 K/ul (4.8-10.8)
[2024-02-18 07:37] LABS: BUN Creatinine Ratio 17.5 (10-20); Calcium 9.2 mg/dl (8.6-10.3); Chol HDL Ratio 5.1 (0-5); Creatinine Clr Calc Pharmacy 60.6 ml/min; Est GFR (Non-African American) 74.2 ml/min; Potassium 4.1 mmol/L (3.5-5.1)
[2024-02-18 07:54] LABS: Estimated Average Glucose 111 mg/dl; Hemoglobin A1C 5.5 % (4.5-5.6)
[2024-02-18] MEDS: cefTRIAXone SODIUM 1,000 MG/50 ML BAG IV SCH (09:13)
--- NOTE | 2024-02-18 12:17 | Hospitalist Progress Note ---
Date of Service February 18, 2024 Assessment & Plan (1) Pulmonary embolism: Plan: Multiple bilateral acute PEs noted on admission, causing some chest discomfort. No evidence of acute coronary syndrome. Heparin drip has been converted to Eliquis 5 mg twice daily. Will avoid 10 mg dosing of Eliquis due to recent subarachnoid hemorrhage. (2) Traumatic subarachnoid hemorrhage: Plan: Associated with a skull fracture suffered from a fall from a ladder in November of this year. There is risk involved with systemic anticoagulation and her is aware. However, treatment benefits currently outweigh risks at this time. Heparin drip has been converted to Eliquis. Will use 5 mg twice daily dosing going forward and avoid the 10 mg dose due to recent subarachnoid hemorrhage (3) Dementia in other diseases classified elsewhere, unspecified severity, without behavioral disturbance, psychotic disturbance, mood disturbance, and anxiety: Plan: Supportive care. Continue current medical management (4) Acute UTI: Plan: Gram-negative rods isolated. Final identification and sensitivities pending. Continue Rocephin, day 2. Previous cultures grew pansensitive E. coli (5) History of subarachnoid hemorrhage: Plan: Occurred in November of this year after falling from a ladder. There is known risk involved with systemic anticoagulation and the is aware. Plan Hopeful discharge to home tomorrow, February 18 Admission and Anticipated Discharge Date Admission Date: February 17, 2024 Subjective Alert. Baseline dementia. She is tolerating the Eliquis so far. No new findings. Gram-negative bacilli in the urine have yet to be identified with sensitivities. She remains on intravenous Rocephin, day 2, for now. IV fluids have been discontinued. Hopefully she can go home tomorrow, February 18 on Eliquis and an oral antibiotic Review of Systems 2 Review of Systems: Constitutional-no fever or chills ENT-no blurred vision, no double vision, no epistaxis, no sore throat Respiratory-no cough, no wheezing, no shortness of breath Cardiac-no palpitations, no chest pain, no syncope GI-no nausea, vomiting, diarrhea, melena, hematochezia -no urinary retention, no urinary incontinence, no dysuria, no hematuria Musculoskeletal-no joint pain, no muscle tenderness Skin-no bruising, no rashes, no pruritus Neuro-no isolated weakness, no paresthesia. Generalized weakness consistent with age Psych-no depression, no anxiety Physical Exam 2 Physical Exam: General-alert and oriented x1, no fever, no chills HEENT-head atraumatic and normocephalic, pupils equal and reactive to light, extraocular muscles intact Neck-no lymphadenopathy or thyromegaly, trachea midline Chest-clear to auscultation. No rales, wheezing or rhonchi Cardiac-regular rate and rhythm, normal S1 and S2 Abdomen-normal bowel sounds, no hepatosplenomegaly Extremities-no cyanosis, clubbing, or edema Neuro-cranial nerves II through XII intact, motor and sensory function within normal limits, strength symmetrical with generalized weakness consistent with age, no focal deficits Psych-normal affect, normal mood Results & Data Results & Data Vital Signs (Past 12 Hours) Vital Signs Temp Pulse Pulse Resp BP Pulse Ox O2 Del Method 02/18/24 11:25 37.0 C 92 H 14 103/67 92 Room Air 02/18/24 08:29 95 H 02/18/24 08:00 Room Air 02/18/24 07:59 36.9 C 81 18 168/92 H 93 Room Air 02/18/24 04:00 36.9 C 93 H 17 149/79 H 91 Room Air Laboratory Results 02/18/24 06:56 02/18/24 06:56 PG Care Time/CCT Total # of Minutes Spent Total Time Spent with Patient: Total time spent is greater than 50% in coordination of care (as documented) at patient's floor/unit and/or counseling patient: Coding Level of Care Code 67012 SUB INP/OBS CARE 2/35MIN Diagnoses Multiple subsegmental pulmonary emboli without acute cor pulmonale I26.99 Pulmonary embolism type: unspecified Chronicity: acute Acute cor pulmonale presence: unspecified Traumatic subarachnoid hemorrhage S06.6XAA Dementia in other diseases classified elsewhere, unspecified severity, without behavioral disturbance, psychotic disturbance, mood disturbance, and anxiety F02.80 Acute UTI N39.0 History of subarachnoid hemorrhage Z86.79 (1) Pulmonary embolism Pulmonary embolism type: unspecified Chronicity: acute Acute cor pulmonale presence: unspecified Qualified Code(s): I26.99 - Other pulmonary embolism without acute cor pulmonale
[2024-02-19 05:14] LABS: Basophils # (auto) 0.03 K/uL (0.00-0.20); Basophils % (auto) 0.4 %; Eosinophils # (auto) 0.26 K/uL (0.00-0.50); Eosinophils % (auto) 3.2 %; Hematocrit (blood only) 44.1 % (37.0-47.0); Hemoglobin 14.3 g/dl (12.0-16.0); Immature Granulocytes # (auto) 0.03 K/uL (0.01-0.20); Immature Granulocytes % (auto) 0.4 %; Lymphocytes % (auto) 29.6 %; Mean Corpuscular Hgb Conc 32.4 g/dL (32.0-36.0); Mean Corpuscular Volume 101.8 fL (80.0-100.0); Mean Platelet Volume 8.5 fL (9.4-12.4); Monocytes # (auto) 0.95 K/uL (0.11-0.59); Monocytes % (auto) 11.7 %; Neutrophils # (auto) 4.43 K/uL (1.40-6.50); Neutrophils % (auto) 54.7 %; Platelet Count 306 K/uL (130-400); RDW Coefficient of Variation 13.1 % (11.5-14.5); RDW Standard Deviation 49.2 fL (36.4-46.3); Red Blood Count 4.33 M/uL (4.20-5.40)
[2024-02-19 05:28] LABS: BUN Creatinine Ratio 22.6 (10-20); Calcium 9.8 mg/dl (8.6-10.3); Creatinine Clr Calc Pharmacy 57.7 ml/min; Est GFR (Non-African American) 69.9 ml/min; Potassium 4.3 mmol/L (3.5-5.1)
--- NOTE | 2024-02-19 10:06 | Discharge Summary ---
Discharge Summary Date of Service February 19, 2024 Principal Dx & Hospital Course #1 = Principal Diagnosis (1) Pulmonary embolism: Multiple bilateral acute PEs noted on admission, causing some chest discomfort. No evidence of acute coronary syndrome. Heparin drip has been converted to Eliquis 5 mg twice daily. Will avoid 10 mg dosing of Eliquis due to recent subarachnoid hemorrhage. (2) Traumatic subarachnoid hemorrhage: Associated with a skull fracture suffered from a fall from a ladder in November of this year. There is risk involved with systemic anticoagulation and her is aware. However, treatment benefits currently outweigh risks at this time. Heparin drip has been converted to Eliquis. Will use 5 mg twice daily dosing going forward and avoid the 10 mg dose due to recent subarachnoid hemorrhage (3) Dementia in other diseases classified elsewhere, unspecified severity, without behavioral disturbance, psychotic disturbance, mood disturbance, and anxiety: Supportive care. Continue current medical management (4) Acute UTI: Pansensitive E. coli isolated. Treated while hospitalized with intravenous Rocephin. She will continue oral cephalexin for 3 more days at discharge. (5) History of subarachnoid hemorrhage: Occurred in November of this year after falling from a ladder. There is known risk involved with systemic anticoagulation and the is aware. Plan Home today, February 18 Admission HPI Per Admitting Provider Boni is a 73-year-old woman with past medical history significant for advanced dementia, and a recent medical history of R hip fracture, subarachnoid hemorrhage, temporal bone fracture 2/2 trauma sustained after falling from ladder on 12/04 who presented to the ER with her last night with a complaint of left-sided back and flank pain that began a few hours ago. Spoke with over the phone, who explained that she began complaining of left- sided rib pain at approximately 7 PM, but was otherwise fine and went to bed. Patient was awakened by the pain which is worsened, and was now "unbearable." then decided to bring her in for evaluation. He denies chest pain, shortness of breath, or LE pain/swelling. also denies any past medical/family history of blood clots or thrombophilia. ER workup was notable for WBC 11.2, and a UA positive for nitrates, WBC, 4+ bacteria. Hgb, high-sensitivity troponin, electrolytes, LFTs were all unr emarkable. CTA chest revealed "bilateral pulmonary emboli extending from the distal right and distal left main pulmonary arteries into the proximal segmental and subsegmental branches are in both lungs, L >R Borderline right heart strain." She received an IV heparin loading dose, and started on the treatment dose the hospitalist service was then consulted for admission. On admission, patient is awake, responsive, and pleasant, but appears confused and disoriented. She denies any acute pain including flank pain, she further denies increased urinary frequency or pain with urination. Discharge Exam General-alert and oriented x1, no fever, no chills HEENT-head atraumatic and normocephalic, pupils equal and reactive to light, extraocular muscles intact Neck-no lymphadenopathy or thyromegaly, trachea midline Chest-clear to auscultation. No rales, wheezing or rhonchi Cardiac-regular rate and rhythm, normal S1 and S2 Abdomen-normal bowel sounds, no hepatosplenomegaly Extremities-no cyanosis, clubbing, or edema Neuro-cranial nerves II through XII intact, motor and sensory function within normal limits, strength symmetrical with generalized weakness consistent with age, no focal deficits Psych-normal affect, normal mood Updated Medication List Medication Instructions Recorded Confirmed Type Unknown Acid Reflux Med 1 tab PO DAILY 02/17/24 02/17/24 History acetaminophen 500 mg tablet 1,000 mg PO TID 02/17/24 02/17/24 History (Tylenol Extra Strength) memantine 10 mg tablet 10 mg PO BID 02/17/24 02/17/24 History apixaban 5 mg tablet (Eliquis) 5 mg PO BID #60 tabs 02/19/24 Rx cephalexin 250 mg capsule 250 mg PO TID #9 caps 02/19/24 Rx Hospital Stay Data Consultations 02/17/24 03:23 ED Decision to Admit Stat Diagnostic Imagining Performed 02/16/24 22:39 CT abd pelvis IV con only Stat CT angio chest PE protocol Stat 02/17/24 03:06 CT head/brain wo con Stat 02/17/24 04:52 US venous doppler LE BI Stat Pending Results Patient Have Any Pending Studies at Discharge: No Discharge Instructions Given to Patient (Per Discharging Provider) Take cephalexin antibiotic for 3 more days. Take Eliquis twice daily indefinitely for blood thinner Total Time Total Time Spent Total Time Spent (In Minutes): 45 minutes Coding Level of Care Code 49268 INP/OBS DISCH >30 MIN Diagnoses Multiple subsegmental pulmonary emboli without acute cor pulmonale I26.99 Pulmonary embolism type: unspecified Chronicity: acute Acute cor pulmonale presence: unspecified Traumatic subarachnoid hemorrhage S06.6XAA Dementia in other diseases classified elsewhere, unspecified severity, without behavioral disturbance, psychotic disturbance, mood disturbance, and anxiety F02.80 Acute UTI N39.0 History of subarachnoid hemorrhage Z86.79
== END 2024-02-19 11:15 | disposition home or self-care (01) | DRG 176 ==
LOC: ED 20:13 → EDINP 02-17 03:43 → SUATTDRO 02-17 03:43 → 4W 02-17 09:49

== ENCOUNTER 2024-04-26 14:32 | Inpatient (IN) ==
[2024-04-26 15:14] LABS: Basophils # (auto) 0.02 K/uL (0.00-0.20); Basophils % (auto) 0.2 %; Hematocrit (blood only) 48.9 % (37.0-47.0); Hemoglobin 16.3 g/dl (12.0-16.0); Immature Granulocytes # (auto) 0.03 K/uL (0.01-0.20); Immature Granulocytes % (auto) 0.3 %; Lymphocytes # (auto) 0.79 K/uL (1.20-3.40); Lymphocytes % (auto) 8.5 %; Mean Corpuscular Hemoglobin 33.1 pg (25.0-34.0); Mean Corpuscular Hgb Conc 33.3 g/dL (32.0-36.0); Mean Corpuscular Volume 99.4 fL (80.0-100.0); Mean Platelet Volume 8.7 fL (9.4-12.4); Monocytes % (auto) 15.1 %; Neutrophils # (auto) 7.03 K/uL (1.40-6.50); Neutrophils % (auto) 75.9 %; Platelet Count 254 K/uL (130-400); RDW Standard Deviation 44.2 fL (36.4-46.3); Red Blood Count 4.92 M/uL (4.20-5.40); White Blood Count 9.27 K/ul (4.8-10.8)
--- NOTE | 2024-04-26 15:28 | XRay Report ---
XR chest 1V portable CLINICAL HISTORY: weakness COMPARISON STUDY: Chest CT February 17, 2024. Chest radiograph February 26, 2024. FINDINGS: S-shaped scoliosis of the thoracolumbar spine is incidentally noted. There is no pneumothor ax. Pulmonary vascular congestion is again noted. No definite pleural effusions. Linear left basilar densities favor atelectasis. There is no consolidation to suggest pneumonia. Cardiomediastinal silhou ette is stable. IMPRESSION: 1. No significant change in appearance of the chest. Pulmonary vascular congestion. 2. Linear left lower lung densities suggestive of atelectasis or scarring. ACT 112: Negative or not required by law. Electronically signed by: Elio Ku M.D. 04/26/2024 3:26 PM
[2024-04-26] MEDS: SODIUM CHLORIDE 0.9% 1,000 ML IV SCH (15:29)
[2024-04-26 15:36] LABS: Albumin Level 4.6 gm/dl (3.4-5.0); Anion Gap 9 (3-11); Bilirubin,Total 0.6 mg/dl (0.2-1.0); Calcium 9.9 mg/dl (8.6-10.3); Carbon Dioxide 29 mmol/L (21-32); Chloride 99 mmol/L (98-107); Potassium 3.9 mmol/L (3.5-5.1); Sodium 137 mmol/L (136-145)
--- NOTE | 2024-04-26 15:39 | Electrocardiogram Report ---
Test Reason : Blood Pressure : */* mmHG Vent. Rate : 94 BPM Atrial Rate : 94 BPM P-R Int : 162 ms QRS Dur : 76 ms QT Int : 344 ms P-R-T Axes : 49 1 45 degrees QTcB Int : 430 ms Normal sinus rhythm Minimal voltage criteria for LVH, may be normal variant ( R in aVL ) Nonspecific ST and T wave abnormality Abnormal ECG When compared with ECG of 16-Feb-2024 20:27, Nonspecific T wave abnormality now evident in Anterior leads Confirmed by Sung Bazan ([id number]) on 04/26/2024 3:38:44 PM Referred By: Confirmed By: Sung Bazan
[2024-04-26 15:42] LABS: Alanine Aminotransferase 23 U/L (7-52); Albumin Globulin Ratio 1.4 (0.9-2); Alkaline Phosphatase 105 U/L (34-104); Aspartate Aminotransferase 22 U/L (13-39); BUN Creatinine Ratio 14.6 (10-20); Blood Urea Nitrogen 12 mg/dl (6-23); Globulin 3.3 gm/dl (2.5-4.0); Glucose 107 mg/dl (70-99(Fasting)); Total Protein 7.9 gm/dl (6.0-8.3)
[2024-04-26 15:45] LABS: Troponin I High Sensitivity 24.3 pg/ml (0-14)
--- NOTE | 2024-04-26 15:46 | CT Scan Report ---
CT OF THE HEAD WITHOUT CONTRAST CLINICAL HISTORY: confusion COMPARISON STUDY: MRI of the brain January 27, 2022. Head CT February 26, 2024. CT DOSE: 547.75 mGy.cm TECHNIQUE: Helical axial images of the head were obtained without IV contrast. Automated exposure con trol was utilized for the study. A dose lowering technique was utilized adhering to the principles o f ALARA. FINDINGS: This exam is mildly compromised by motion artifact. No acute intracranial hemorrhage, midli ne shift or mass effect is present. Ventricular dilatation is unchanged. Basal cisterns are patent. T here are no axial collections. There are no findings to suggest acute dural sinus thrombosis or acute territorial infarct. A nondisplaced left temporal bone fracture is again noted. This was shown on pr ior exam. No additional fractures are identified. IMPRESSION: 1. No acute intracranial findings. No change in appearance of the brain. 2. Exam moderately compromised by motion artifact. ACT 112: Negative or not required by law. Electronically signed by: Elio Ku M.D. 04/26/2024 3:45 PM
[2024-04-26 15:54] LABS: Thyroid Stimulating Hormone 2.054 uIu/ml (0.300-4.500)
--- NOTE | 2024-04-26 16:14 | Emergency Department Note ---
Impression & Plan COVID-19, Hematuria, Confusion, Generalized weakness ED Provider Note NAME: MAYNOR OLIVARES AGE: 73 SEX: F : 1950 ARRIVES VIA: Walk-In INFORMANT: Patient, ED PROVIDER(S): Davion Mtz MD CHIEF COMPLAINT: Confusion HPI: This is a 73-year-old female presenting for confusion. Patient is with her provides a history. Patient at this time is unable to follow my commands or give any history. He states that last 24 hours patient has had some significant changes where he notes that she is very confused, unable to tell basic information including who he is, where she is. She is very weak and is unable to walk at this time. Yesterday she was able to get around without a walker about 10 feet and answer all questions appropriately. She does have underlying dementia but not this severe. No fevers, nausea vomiting or diarrhea. ROS: Unable to obtain PHYSICAL EXAMINATION: General: resting comfortably in no acute distress Head: Normocephalic and atraumatic Eyes: Normal inspection, extraocular muscles intact Ear, nose, throat: Normal external exam Neck: Normal range of motion Respiratory: lungs clear to auscultation bilaterally Cardiovascular: Regular rate/rhythm, no murmur GI: soft, nontender, no guarding or rebound Extremities: nontender, moves all extremities Neuro: Alert and oriented x 0, moves all extremities Skin: Warm, dry, and intact MEDICAL DECISION MAKING: This is a 73-year-old female present for confusion/weakness. Patient has no lateralizing motor symptoms but does have diffuse weakness. She is fairly confused at this time unable to answer any significant questioning. I have suspicion that patient may have a UTI. Will do other workup including blood work, chest x-ray, EKG, viral panel. -Urinalysis does not reveal signs of UTI -Labs reviewed showing a elevated hemoglobin at 16.3. Otherwise electrolytes within normal limits. Troponin is presently elevated in the 20s. -Otherwise patient is COVID-19 positive which could be patient source of confusion -CT head is currently negative -Patient required mission for current confusion, COVID-19 and weakness/unsafe discharge plan Differential diagnosis: Pneumonia, UTI, upper restaurant infection, stroke, intracranial hemorrhage ER treatment provided: See below Independent History obtained from: Diagnostics interpreted by me: ECG: ECG independently interpreted by me with normal sinus rhythm, rate of 94, normal axis, normal LA, normal QRS, normal QTc, no ST segment elevations consistent with STEMI criteria Cardiac Monitoring: An order was placed for continuous cardiac monitoring. The monitor shows a rate 89 with sinus rhythm. Laboratory studies: As stated above and show below. Imaging studies: See below. Past Med/Surg History Problem List (Updated 04/26/24 @ 22:00 by Davion Mtz MD) Advanced dementia Generalized weakness (Acute) Confusion (Acute) COVID-19 (Acute) Hematuria (Acute) Right leg DVT Acute UTI (Acute) Back pain (Acute) Pulmonary embolism (Acute) Urinary incontinence Urinary urgency Medical History (Updated 04/26/24 @ 22:00 by Davion Mtz MD) History of subarachnoid hemorrhage Hip fracture, right (12/05/23) displaced right intertrochanteric femur fracture from a fall off a ladder-had orthopedic surgery at [facility] in [place] Dementia in other diseases classified elsewhere, unspecified severity, without behavioral disturbance, psychotic disturbance, mood disturbance, and anxiety Dyslipidemia Subdural hemorrhage Traumatic subarachnoid hemorrhage Hx of fracture of right hip (~11/2023) Intramedullary nail fixation right hip History of colon polyps Poor historian pt had difficulty remembering some of her health status/issues when asked 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 Surgical History History of tooth extraction Hx of colonoscopy with polypectomy 04/2021 repeat 5 yrs S/P tonsillectomy and adenoids Family History Father Prostate cancer Dementia Hypertension Mother Diabetes Heart disease congenital heart disease, h/o CHF Hypertension Grandmother Breast cancer Grandmother (Maternal) Myocardial infarction Other No family history of adverse response to anesthesia Denies family history of Ovarian cancer Lung cancer Colorectal cancer Social History Smoking Status: Never smoker Second Hand Exposure: No; Do You Dip or Chew Tobacco: No; Hx Alcohol Use: No Hx Substance Use: No Preferred Language: Afghan Communication Ability: Impaired Communication Ability Comment: pt has history of dementia and struggles to follow commands but is able Visual Impairment: Limited Hearing Ability: Normal Ceramic Saw Tender Required: No Beliefs That Will Affect Care: None marital status: Current Living Situation: Spouse and Family current occupational status: employed 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 How many Children do You have: 2 Feels Safe at Home: Yes Childhood Exposure to Second-Hand Smoke: Yes caffeine: Yes (very seldom) Dental Care, Regularly: Yes Physical Activity Frequency: Does not Exercise Seatbelt Use: always Sunscreen Use: No Assistive Devices: Walker Allergies Allergies Allergy/AdvReac Type Severity Reaction Status Date / Time No Known Drug Allergies Allergy 0 Verified 03/27/24 13:31 Home Meds Home Medications Medication Instructions Recorded Confirmed memantine 10 mg tablet 10 mg PO BID 02/17/24 03/27/24 Previous Rx's Medication Instructions Recorded famotidine 20 mg tablet 20 mg PO DAILY #30 tabs 03/27/24 apixaban 5 mg tablet (Eliquis) 5 mg PO BID #60 tabs 04/12/24 Results & Data (ED) Vital Signs Vital Signs - 24 hr 04/26/24 14:37 04/26/24 15:01 04/26/24 15:01 Temperature 36.5 C Temperature Source Temporal Artery Scan Pulse Rate 101 H Pulse Rate [Left Brachial] 96 H Pulse Rhythm Pulse Rhythm [Left Brachial] Regular Pulse Strength [Left Brachial] Normal Respiratory Rate 20 18 Respiratory Effort / Characteristics Non-Labored Spontaneous Non-Labored Respiratory Depth Normal Normal Respiratory Pattern Regular Blood Pressure 130/84 Blood Pressure [Left Arm] 131/70 Blood Pressure Mean 99 Blood Pressure Mean [Left Arm] 90 Blood Pressure Position [Left Arm] Lying Pulse Oximetry 97 94 Oxygen Delivery Method Room Air Room Air Room Air Sepsis Recent Fever Within 48 Hours No Sepsis New/Unexplained Change in Mental Status No Sepsis Action Taken by Nursing No Action Required 04/26/24 15:01 04/26/24 18:54 04/26/24 19:00 Temperature Temperature Source Pulse Rate 96 H 91 H Pulse Rate [Left Brachial] 89 Pulse Rhythm Regular Pulse Rhythm [Left Brachial] Regular Pulse Strength [Left Brachial] Normal Respiratory Rate 20 18 Respiratory Effort / Characteristics Non-Labored Respiratory Depth Normal Respiratory Pattern Regular Blood Pressure Blood Pressure [Left Arm] 143/50 H Blood Pressure Mean Blood Pressure Mean [Left Arm] 81 Blood Pressure Position [Left Arm] Lying Pulse Oximetry 94 95 Oxygen Delivery Method Room Air Room Air Sepsis Recent Fever Within 48 Hours Sepsis New/Unexplained Change in Mental Status Sepsis Action Taken by Nursing 04/26/24 21:00 Temperature Temperature Source Pulse Rate Pulse Rate [Left Brachial] 89 Pulse Rhythm Pulse Rhythm [Left Brachial] Regular Pulse Strength [Left Brachial] Normal Respiratory Rate 18 Respiratory Effort / Characteristics Non-Labored Respiratory Depth Normal Respiratory Pattern Regular Blood Pressure Blood Pressure [Left Arm] 163/97 H Blood Pressure Mean Blood Pressure Mean [Left Arm] 119 Blood Pressure Position [Left Arm] Lying Pulse Oximetry 94 Oxygen Delivery Method Room Air Sepsis Recent Fever Within 48 Hours Sepsis New/Unexplained Change in Mental Status Sepsis Action Taken by Nursing Laboratory Data 04/26/24 14:50 04/26/24 14:50 Lab Results 04/26/24 04/26/24 04/26/24 Range/Units 14:50 15:38 15:46 WBC 9.27 (4.8-10.8) K/ul RBC 4.92 (4.20-5.40) M/uL Hgb 16.3 H (12.0-16.0) g/dl Hct 48.9 H (37.0-47.0) % MCV 99.4 (80.0-100.0) fL MCH 33.1 (25.0-34.0) pg MCHC 33.3 (32.0-36.0) g/dL RDW Std Deviation 44.2 (36.4-46.3) fL RDW Coeff of Yeimi 12.0 (11.5-14.5) % Plt Count 254 (130-400) K/uL MPV 8.7 L (9.4-12.4) fL Immature Gran % (Auto) 0.3 % Neut % (Auto) 75.9 % Lymph % (Auto) 8.5 % [place] % (Auto) 15.1 % Eos % (Auto) 0.0 % Baso % (Auto) 0.2 % Neut # (Auto) 7.03 H (1.40-6.50) K/uL Lymph # (Auto) 0.79 L (1.20-3.40) K/uL [place] # (Auto) 1.40 H (0.11-0.59) K/uL Eos # (Auto) 0.00 (0.00-0.50) K/uL Baso # (Auto) 0.02 (0.00-0.20) K/uL Immature Gran # (Auto) 0.03 (0.01-0.20) K/uL Sodium 137 (136-145) mmol/L Potassium 3.9 (3.5-5.1) mmol/L Chloride 99 (98-107) mmol/L Carbon Dioxide 29 (21-32) mmol/L Anion Gap 9 (3-11) BUN 12 (6-23) mg/dl Creatinine 0.82 (0.6-1.2) mg/dl Est Cr Clr Drug Dosing Not Reportable eGFR 76.43 BUN/Creatinine Ratio 14.6 (10-20) Glucose 107 H (70-99(Fasting)) mg/dl POC Glucose 111 H (70-99) mg/dl Lactate 2.3 H* (0.4-2.0) mmol/L Calcium 9.9 (8.6-10.3) mg/dl Total Bilirubin 0.6 (0.2-1.0) mg/dl AST 22 (13-39) U/L ALT 23 (7-52) U/L Alkaline Phosphatase 105 H (34-104) U/L Troponin I High Sens 24.3 H (0-14) pg/ml Total Protein 7.9 (6.0-8.3) gm/dl Albumin 4.6 (3.4-5.0) gm/dl Globulin 3.3 (2.5-4.0) gm/dl Albumin/Globulin Ratio 1.4 (0.9-2) TSH 2.054 (0.300-4.500) uIu/ml Urine Color Urine Appearance (Clear) Urine pH (4.5-7.5) Ur Specific [place] (1.000-1.030) Urine Protein (Negative) Urine Glucose (UA) (Negative) Urine Ketones (Negative) Urine Blood (Negative) Urine Nitrite (Negative) Urine Bilirubin (Negative) Urine Urobilinogen (Negative) Ur Leukocyte Esterase (Negative) Urine WBC (Auto) (0-5) /hpf Urine RBC (Auto) (0-2) /hpf U Hyaline Cast (Auto) (0-2) /lpf U Epithel Cells (Auto) (0-2) /hpf Urine Bacteria (Auto) (None Seen) Adenovirus (PCR) (NotDetected) B. pertussis DNA (PCR) (NotDetected) B.parapertussis DNA PCR (NotDetected) C. pneumoniae DNA (PCR) (NotDetected) Coronavirus OC43 (PCR) (NotDetected) Coronavirus HKU1 (PCR) (NotDetected) Coronavirus 229E (PCR) (NotDetected) SARS-CoV-2 (PCR) (NotDetected) Coronavirus NL63 (PCR) (NotDetected) Human Metapneumovir PCR (NotDetected) Influenza Type A (PCR) (NotDetected) Influenza Type B (PCR) (NotDetected) M. pneumoniae (PCR) (NotDetected) Parainfluenza 1 (PCR) (NotDetected) Parainfluenza 2 (PCR) (NotDetected) Parainfluenza 3 (PCR) (NotDetected) Parainfluenza 4 (PCR) (NotDetected) RSV (PCR) (NotDetected) Entero/Rhino (PCR) (NotDetected) 04/26/24 04/26/24 04/26/24 Range/Units 15:56 16:48 17:31 WBC (4.8-10.8) K/ul RBC (4.20-5.40) M/uL Hgb (12.0-16.0) g/dl Hct (37.0-47.0) % MCV (80.0-100.0) fL MCH (25.0-34.0) pg MCHC (32.0-36.0) g/dL RDW Std Deviation (36.4-46.3) fL RDW Coeff of Yeimi (11.5-14.5) % Plt Count (130-400) K/uL MPV (9.4-12.4) fL Immature Gran % (Auto) % Neut % (Auto) % Lymph % (Auto) % [place] % (Auto) % Eos % (Auto) % Baso % (Auto) % Neut # (Auto) (1.40-6.50) K/uL Lymph # (Auto) (1.20-3.40) K/uL [place] # (Auto) (0.11-0.59) K/uL Eos # (Auto) (0.00-0.50) K/uL Baso # (Auto) (0.00-0.20) K/uL Immature Gran # (Auto) (0.01-0.20) K/uL Sodium (136-145) mmol/L Potassium (3.5-5.1) mmol/L Chloride (98-107) mmol/L Carbon Dioxide (21-32) mmol/L Anion Gap (3-11) BUN (6-23) mg/dl Creatinine (0.6-1.2) mg/dl Est Cr Clr Drug Dosing eGFR BUN/Creatinine Ratio (10-20) Glucose (70-99(Fasting)) mg/dl POC Glucose (70-99) mg/dl Lactate 2.0 (0.4-2.0) mmol/L Calcium (8.6-10.3) mg/dl Total Bilirubin (0.2-1.0) mg/dl AST (13-39) U/L ALT (7-52) U/L Alkaline Phosphatase (34-104) U/L Troponin I High Sens 18.6 H D (0-14) pg/ml Total Protein (6.0-8.3) gm/dl Albumin (3.4-5.0) gm/dl Globulin (2.5-4.0) gm/dl Albumin/Globulin Ratio (0.9-2) TSH (0.300-4.500) uIu/ml Urine Color Yellow Urine Appearance Clear (Clear) Urine pH 6.5 (4.5-7.5) Ur Specific [place] 1.018 (1.000-1.030) Urine Protein Negative (Negative) Urine Glucose (UA) Negative (Negative) Urine Ketones Negative (Negative) Urine Blood 1+ H (Negative) Urine Nitrite Negative (Negative) Urine Bilirubin Negative (Negative) Urine Urobilinogen Negative (Negative) Ur Leukocyte Esterase Negative (Negative) Urine WBC (Auto) 0-5 (0-5) /hpf Urine RBC (Auto) 11-20 H (0-2) /hpf U Hyaline Cast (Auto) 0-2 (0-2) /lpf U Epithel Cells (Auto) 0-2 (0-2) /hpf Urine Bacteria (Auto) None Seen (None Seen) Adenovirus (PCR) Not Detected (NotDetected) B. pertussis DNA (PCR) Not Detected (NotDetected) B.parapertussis DNA PCR Not Detected (NotDetected) C. pneumoniae DNA (PCR) Not Detected (NotDetected) Coronavirus OC43 (PCR) Not Detected (NotDetected) Coronavirus HKU1 (PCR) Not Detected (NotDetected) Coronavirus 229E (PCR) Not Detected (NotDetected) SARS-CoV-2 (PCR) DETECTED A (NotDetected) Coronavirus NL63 (PCR) Not Detected (NotDetected) Human Metapneumovir PCR Not Detected (NotDetected) Influenza Type A (PCR) Not Detected (NotDetected) Influenza Type B (PCR) Not Detected (NotDetected) M. pneumoniae (PCR) Not Detected (NotDetected) Parainfluenza 1 (PCR) Not Detected (NotDetected) Parainfluenza 2 (PCR) Not Detected (NotDetected) Parainfluenza 3 (PCR) Not Detected (NotDetected) Parainfluenza 4 (PCR) Not Detected (NotDetected) RSV (PCR) Not Detected (NotDetected) Entero/Rhino (PCR) Not Detected (NotDetected) Administered Medications Ceftriaxone Sodium (Rocephin) 2,000 mg in 50 mls @ 100 mls/hr IV Q24H OLIVIER Stop: 05/01/24 20:29 Last Admin: 04/26/24 21:25 Dose: 100 mls/hr Documented By: ESTRELLITA Discontinued Medications Dexamethasone (Dexamethasone Sod Inj 4 Mg/Ml Vial) 6 mg IV NOW STA Stop: 04/26/24 19:48 Last Admin: 04/26/24 20:19 Dose: 6 mg Documented By: ESTRELLITA Sodium Chloride (Nss) 1,000 mls @ 999 mls/hr IV .Q1H1M OLIVIER Stop: 04/26/24 15:45 Last Infusion: 04/26/24 16:34 Dose: Infused Documented By: Admin: 04/26/24 15:29 Dose: 999 mls/hr Documented By: ESTRELLITA Imaging Data Radiologist's Impression: Chest X-Ray 04/26/24 14:41 XR chest 1V portable CLINICAL HISTORY: weakness COMPARISON STUDY: Chest CT February 17, 2024. Chest radiograph February 26, 2024. FINDINGS: S-shaped scoliosis of the thoracolumbar spine is incidentally noted. There is no pneumothorax. Pulmonary vascular congestion is again noted. No definite pleural effusions. Linear left basilar densities favor atelectasis. There is no consolidation to suggest pneumonia. Cardiomediastinal silhouette is stable. IMPRESSION: 1. No significant change in appearance of the chest. Pulmonary vascular congestion. 2. Linear left lower lung densities suggestive of atelectasis or scarring. ACT 112: Negative or not required by law. Electronically signed by: Elio Ku M.D. 04/26/2024 3:[address] 04/26/24 14:41 CT OF THE HEAD WITHOUT CONTRAST CLINICAL HISTORY: confusion COMPARISON STUDY: MRI of the brain January 27, 2022. Head CT February 26, 2024. CT DOSE: 547.75 mGy.cm TECHNIQUE: Helical axial images of the head were obtained without IV contrast. Automated exposure control was utilized for the study. A dose lowering technique was utilized adhering to the principles of ALARA. FINDINGS: This exam is mildly compromised by motion artifact. No acute intracranial hemorrhage, midline shift or mass effect is present. Ventricular dilatation is unchanged. Basal cisterns are patent. There are no axial collections. There are no findings to suggest acute dural sinus thrombosis or acute territorial infarct. A nondisplaced left temporal bone fracture is again noted. This was shown on prior exam. No additional fractures are identified. IMPRESSION: 1. No acute intracranial findings. No change in appearance of the brain. 2. Exam moderately compromised by motion artifact. ACT 112: Negative or not required by law. Electronically signed by: Elio Ku M.D. 04/26/2024 3:45 PM Discharge Plan Visit Data Chief Complaint: Confusion Stated Complaint: DEMENTIA GOT WORSE, ED Provider: Davion Mtz Discharge Problem: COVID-19, Hematuria, Confusion, Generalized weakness Forms Stand Alone Forms: My [facility] [place] [employer] Prescriptions Prescriptions: No Action famotidine 20 mg tablet 20 mg PO DAILY Qty: 30 2RF Eliquis 5 mg tablet 5 mg PO BID Qty: 60 5RF memantine 10 mg tablet 10 mg PO BID Referrals Referrals: Vaughn Jefferson DO [Primary Care Provider] -
[2024-04-26 16:56] LABS: Adenovirus PCR Not Detected (NotDetected); Bordetella parapertussis PCR Not Detected (NotDetected); Bordetella pertussis PCR Not Detected (NotDetected); Chlamydia pneumoniae PCR Not Detected (NotDetected); Coronavirus 229E PCR Not Detected (NotDetected); Coronavirus CoV-2 (COVID19)PCR DETECTED (NotDetected); Coronavirus HKU1 PCR Not Detected (NotDetected); Coronavirus NL63 PCR Not Detected (NotDetected); Coronavirus OC43PCR Not Detected (NotDetected); Human Metapneumovirus PCR Not Detected (NotDetected); Influenza A PCR Not Detected (NotDetected); Influenza B PCR Not Detected (NotDetected); Mycoplasma pneumoniae PCR Not Detected (NotDetected); Parainfluenza Virus 1 PCR Not Detected (NotDetected); Parainfluenza Virus 2 PCR Not Detected (NotDetected); Parainfluenza Virus 3 PCR Not Detected (NotDetected); Parainfluenza Virus 4 PCR Not Detected (NotDetected); Respiratory Syncytial VirusPCR Not Detected (NotDetected); Rhinovirus/Enterovirus PCR Not Detected (NotDetected)
[2024-04-26 17:43] LABS: Appearance Urine Clear (Clear); Bacteria Urine Automated None Seen (None Seen); Bilirubin Urine Negative (Negative); Blood Urine 1+ (Negative); Cast Urine Automated 0-2 /lpf (0-2); Color Urine Yellow; Epithelial Cell Urine Auto 0-2 /hpf (0-2); Glucose Urine UA Negative (Negative); Ketones Urine Negative (Negative); Leukocyte Esterase Urine Negative (Negative); Nitrite Urine Negative (Negative); Protein Urine Negative (Negative); Specific Gravity Urine 1.018 (1.000-1.030); Urobilinogen Urine Negative (Negative); WBC Urine Automated 0-5 /hpf (0-5); pH Urine 6.5 (4.5-7.5)
--- NOTE | 2024-04-26 19:51 | History & Physical Report ---
Date of Service April 26, 2024 Assessment & Plan (1) Hematuria: (2) COVID-19: (3) Confusion: (4) Generalized weakness: (5) Pulmonary embolism: (6) Right leg DVT: (7) Advanced dementia: (8) Acute UTI: (9) Urinary incontinence: Plan Confusion/advanced dementia/history of traumatic subarachnoid hemorrhage/generalized weakness and ambulatory dysfunction- Contributing factors including but not limited to: UTI, dehydration, COVID-19 infection, progression of underlying dementia, elevated troponin//cardiac Patient unable to contribute to HPI or review of systems Patient would not be able to respond to PT/OT direction at this time COVID-19- Pulse ox 94% on room air Empiric treatment with dexamethasone 6 mg IV now and every morning Elevated troponin- Initial troponin 24.3, with follow-up 18.6 Repeat in a.m. Order echocardiogram to assess for possible pericarditis Dexamethasone IV as noted above Hematuria/history UTI/urinary incontinence/dehydration- Follow urine culture and sensitivity Placed on empiric ceftriaxone due to significant confusion until culture returns Received normal saline 1 L bolus from the ED NSS + KCl 20 mill equivalents at 80 mL/h x 500 mL History of Present Illness Chief Complaint: The patient was brought to the emergency department due to 's concerns regarding acute development of confusion over the past 24 hours. provided history, as the patient is unable to tell any information. reports that the patient is been very weak, and unable to walk well at home. Primary Care Provider: Vaughn Jefferson DO The patient is a 73-year-old female with a past medical history including right lower extremity DVT, pulmonary embolism on Eliquis, history urinary tract in fections, GERD, history of subarachnoid hemorrhage and advanced dementia. She is brought to the emergency department due to worsening confusion, and progressive generalized weakness and decreased ambulatory function. Patient had testing done emergency department which also showed COVID infection. Testing also was positive for elevated troponin of 24.3, which decreased to 18.6 on follow-up. Allergies Allergy/AdvReac Type Severity Reaction Status Date / Time No Known Drug Allergies Allergy 0 Verified 03/27/24 13:31 Home Medications Medication Instructions Recorded Confirmed Type memantine 10 mg tablet 10 mg PO BID 02/17/24 03/27/24 History famotidine 20 mg tablet 20 mg PO DAILY #30 tabs 03/27/24 03/27/24 Rx apixaban 5 mg tablet (Eliquis) 5 mg PO BID #60 tabs 04/12/24 04/12/24 Rx Past Med/Surg History Problem List (Updated 04/26/24 @ 20:14 by Surinder Mary MD) Advanced dementia Generalized weakness Confusion COVID-19 Hematuria Right leg DVT Acute UTI (Acute) Back pain (Acute) Pulmonary embolism (Acute) Urinary incontinence Urinary urgency Medical History (Updated 04/26/24 @ 20:14 by Surinder Mary MD) History of subarachnoid hemorrhage Hip fracture, right (12/05/23) displaced right intertrochanteric femur fracture from a fall off a ladder-had orthopedic surgery at [facility] in [place] Dementia in other diseases classified elsewhere, unspecified severity, without behavioral disturbance, psychotic disturbance, mood disturbance, and anxiety Dyslipidemia Subdural hemorrhage Traumatic subarachnoid hemorrhage Hx of fracture of right hip (~11/2023) Intramedullary nail fixation right hip History of colon polyps Poor historian pt had difficulty remembering some of her health status/issues when asked 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 Surgical History History of tooth extraction Hx of colonoscopy with polypectomy 04/2021 repeat 5 yrs S/P tonsillectomy and adenoids Family History Father Prostate cancer Dementia Hypertension Mother Diabetes Heart disease congenital heart disease, h/o CHF Hypertension Grandmother Breast cancer Grandmother (Maternal) Myocardial infarction Other No family history of adverse response to anesthesia Denies family history of Ovarian cancer Lung cancer Colorectal cancer Social History Smoking Status: Never smoker Second Hand Exposure: No; Do You Dip or Chew Tobacco: No; Hx Alcohol Use: No Hx Substance Use: No Preferred Language: Samoan Communication Ability: Impaired Communication Ability Comment: pt has history of dementia and struggles to follow commands but is able Visual Impairment: Limited Hearing Ability: Normal Sleeve Setter Required: No Beliefs That Will Affect Care: None marital status: Current Living Situation: Spouse and Family current occupational status: employed 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 HEENT--PERRL, EOMI, mucous membranes and oropharynx mildly dry. Neck--supple.No JVD. No bruits. Thyroid normal, trachea midline, no adenopathy. Heart--normal S1 and S2.No murmurs, rubs or gallops. Lungs--clear bilaterally, no respiratory distress, no accessory muscle use. Abdomen--normal bowel sounds and soft. Nontender. Nondistended, no hernias or masses,no organomegaly. Extremities--no cyanosis or clubbing. No edema. There are good distal pulses b/l. Dermatologic--normal skin turgor, normal color, no abnormal lymph nodes, no rash. Neurologic--cranial nerves II through XII grossly intact. Rheumatologic--normal range of motion. Psychiatric--confused affect Results & Data Results & Data Vital Signs (Past 12 Hours) Vital Signs Temp Pulse Pulse Resp BP BP Pulse Ox 04/26/24 19:00 89 18 143/50 H 95 04/26/24 18:54 91 H 04/26/24 15:01 96 H 20 94 04/26/24 15:01 96 H 18 131/70 94 04/26/24 15:01 04/26/24 14:37 36.5 C 101 H 20 130/84 97 O2 Del Method 04/26/24 19:00 Room Air 04/26/24 18:54 04/26/24 15:01 Room Air 04/26/24 15:01 Room Air 04/26/24 15:01 Room Air 04/26/24 14:37 Room Air Laboratory Results Laboratory Results WBC 9.27 K/ul (4.8-10.8) 04/26/24 14:50 RBC 4.92 M/uL (4.20-5.40) 04/26/24 14:50 Hgb 16.3 g/dl (12.0-16.0) H 04/26/24 14:50 Hct 48.9 % (37.0-47.0) H 04/26/24 14:50 MCV 99.4 fL (80.0-100.0) 04/26/24 14:50 MCH 33.1 pg (25.0-34.0) 04/26/24 14:50 MCHC 33.3 g/dL (32.0-36.0) 04/26/24 14:50 RDW Std Deviation 44.2 fL (36.4-46.3) 04/26/24 14:50 RDW Coeff of Yeimi 12.0 % (11.5-14.5) 04/26/24 14:50 Plt Count 254 K/uL (130-400) 04/26/24 14:50 MPV 8.7 fL (9.4-12.4) L 04/26/24 14:50 Immature Gran % (Auto) 0.3 % 04/26/24 14:50 Neut % (Auto) 75.9 % 04/26/24 14:50 Lymph % (Auto) 8.5 % 04/26/24 14:50 Woodson % (Auto) 15.1 % 04/26/24 14:50 Eos % (Auto) 0.0 % 04/26/24 14:50 Baso % (Auto) 0.2 % 04/26/24 14:50 Neut # (Auto) 7.03 K/uL (1.40-6.50) H 04/26/24 14:50 Lymph # (Auto) 0.79 K/uL (1.20-3.40) L 04/26/24 14:50 Woodson # (Auto) 1.40 K/uL (0.11-0.59) H 04/26/24 14:50 Eos # (Auto) 0.00 K/uL (0.00-0.50) 04/26/24 14:50 Baso # (Auto) 0.02 K/uL (0.00-0.20) 04/26/24 14:50 Immature Gran # (Auto) 0.03 K/uL (0.01-0.20) 04/26/24 14:50 Sodium 137 mmol/L (136-145) 04/26/24 14:50 Potassium 3.9 mmol/L (3.5-5.1) 04/26/24 14:50 Chloride 99 mmol/L (98-107) 04/26/24 14:50 Carbon Dioxide 29 mmol/L (21-32) 04/26/24 14:50 Anion Gap 9 (3-11) 04/26/24 14:50 BUN 12 mg/dl (6-23) 04/26/24 14:50 Creatinine 0.82 mg/dl (0.6-1.2) 04/26/24 14:50 Est Cr Clr Drug Dosing Not Reportable 04/26/24 14:50 eGFR 76.43 04/26/24 14:50 BUN/Creatinine Ratio 14.6 (10-20) 04/26/24 14:50 Glucose 107 mg/dl (70-99(Fasting)) H 04/26/24 14:50 POC Glucose 111 mg/dl (70-99) H 04/26/24 15:38 Lactate 2.0 mmol/L (0.4-2.0) 04/26/24 17:31 Calcium 9.9 mg/dl (8.6-10.3) 04/26/24 14:50 Total Bilirubin 0.6 mg/dl (0.2-1.0) 04/26/24 14:50 AST 22 U/L (13-39) 04/26/24 14:50 ALT 23 U/L (7-52) 04/26/24 14:50 Alkaline Phosphatase 105 U/L (34-104) H 04/26/24 14:50 Troponin I High Sens 18.6 pg/ml (0-14) H D 04/26/24 17:31 Total Protein 7.9 gm/dl (6.0-8.3) 04/26/24 14:50 Albumin 4.6 gm/dl (3.4-5.0) 04/26/24 14:50 Globulin 3.3 gm/dl (2.5-4.0) 04/26/24 14:50 Albumin/Globulin Ratio 1.4 (0.9-2) 04/26/24 14:50 TSH 2.054 uIu/ml (0.300-4.500) 04/26/24 14:50 Urine Color Yellow 04/26/24 16:48 Urine Appearance Clear (Clear) 04/26/24 16:48 Urine pH 6.5 (4.5-7.5) 04/26/24 16:48 Ur Specific Gilbert 1.018 (1.000-1.030) 04/26/24 16:48 Urine Protein Negative (Negative) 04/26/24 16:48 Urine Glucose (UA) Negative (Negative) 04/26/24 16:48 Urine Ketones Negative (Negative) 04/26/24 16:48 Urine Blood 1+ (Negative) H 04/26/24 16:48 Urine Nitrite Negative (Negative) 04/26/24 16:48 Urine Bilirubin Negative (Negative) 04/26/24 16:48 Urine Urobilinogen Negative (Negative) 04/26/24 16:48 Ur Leukocyte Esterase Negative (Negative) 04/26/24 16:48 Urine WBC (Auto) 0-5 /hpf (0-5) 04/26/24 16:48 Urine RBC (Auto) 11-20 /hpf (0-2) H 04/26/24 16:48 U Hyaline Cast (Auto) 0-2 /lpf (0-2) 04/26/24 16:48 U Epithel Cells (Auto) 0-2 /hpf (0-2) 04/26/24 16:48 Urine Bacteria (Auto) None Seen (None Seen) 04/26/24 16:48 Adenovirus (PCR) Not Detected (NotDetected) 04/26/24 15:56 B. pertussis DNA (PCR) Not Detected (NotDetected) 04/26/24 15:56 B.parapertussis DNA PCR Not Detected (NotDetected) 04/26/24 15:56 C. pneumoniae DNA (PCR) Not Detected (NotDetected) 04/26/24 15:56 Coronavirus OC43 (PCR) Not Detected (NotDetected) 04/26/24 15:56 Coronavirus HKU1 (PCR) Not Detected (NotDetected) 04/26/24 15:56 Coronavirus 229E (PCR) Not Detected (NotDetected) 04/26/24 15:56 SARS-CoV-2 (PCR) DETECTED (NotDetected) A 04/26/24 15:56 Coronavirus NL63 (PCR) Not Detected (NotDetected) 04/26/24 15:56 Human Metapneumovir PCR Not Detected (NotDetected) 04/26/24 15:56 Influenza Type A (PCR) Not Detected (NotDetected) 04/26/24 15:56 Influenza Type B (PCR) Not Detected (NotDetected) 04/26/24 15:56 M. pneumoniae (PCR) Not Detected (NotDetected) 04/26/24 15:56 Parainfluenza 1 (PCR) Not Detected (NotDetected) 04/26/24 15:56 Parainfluenza 2 (PCR) Not Detected (NotDetected) 04/26/24 15:56 Parainfluenza 3 (PCR) Not Detected (NotDetected) 04/26/24 15:56 Parainfluenza 4 (PCR) Not Detected (NotDetected) 04/26/24 15:56 RSV (PCR) Not Detected (NotDetected) 04/26/24 15:56 Entero/Rhino (PCR) Not Detected (NotDetected) 04/26/24 15:56 Impressions Chest X-Ray 04/26/24 14:41 XR chest 1V portable CLINICAL HISTORY: weakness COMPARISON STUDY: Chest CT February 17, 2024. Chest radiograph February 26, 2024. FINDINGS: S-shaped scoliosis of the thoracolumbar spine is incidentally noted. There is no pneumothorax. Pulmonary vascular congestion is again noted. No defi nite pleural effusions. Linear left basilar densities favor atelectasis. There is no consolidation to suggest pneumonia. Cardiomediastinal silhouette is stable. IMPRESSION: 1. No significant change in appearance of the chest. Pulmonary vascular congestion. 2. Linear left lower lung densities suggestive of atelectasis or scarring. ACT 112: Negative or not required by law. Electronically signed by: Elio Ku M.D. 04/26/2024 3:[address] 04/26/24 14:41 CT OF THE HEAD WITHOUT CONTRAST CLINICAL HISTORY: confusion COMPARISON STUDY: MRI of the brain January 27, 2022. Head CT February 26, 2024. CT DOSE: 547.75 mGy.cm TECHNIQUE: Helical axial images of the head were obtained without IV contrast. Automated exposure control was utilized for the study. A dose lowering technique was utilized adhering to the principles of ALARA. FINDINGS: This exam is mildly compromised by motion artifact. No acute intracranial hemorrhage, midline shift or mass effect is present. Ventricular dilatation is unchanged. Basal cisterns are patent. There are no axial collections. There are no findings to suggest acute dural sinus thrombosis or acute territorial infarct. A nondisplaced left temporal bone fracture is again noted. This was shown on prior exam. No additional fractures are identified. IMPRESSION: 1. No acute intracranial findings. No change in appearance of the brain. 2. Exam moderately compromised by motion artifact. ACT 112: Negative or not required by law. Electronically signed by: Elio Ku M.D. 04/26/2024 3:45 PM Code Status & VTE Plan Code Status Full code VTE Prophylaxis Plan VTE Prophylaxis will be ordered: Yes PG Care Time/CCT Total # of Minutes Spent Total Time Spent with Patient: Total time spent is greater than 50% in coordination of care (as documented) at patient's floor/unit and/or counseling patient: Coding Level of Care Code 30898 INT INP/OBS CARE 3/75MIN Diagnoses Hematuria R31.9 COVID-19 U07.1 Confusion R41.0 Generalized weakness R53.1 Multiple subsegmental pulmonary emboli without acute cor pulmonale I26.99 Pulmonary embolism type: unspecified Chronicity: acute Acute cor pulmonale presence: unspecified Right leg DVT I82.401 Advanced dementia F03.C0 Dementia behavioral or psychological symptom: unspecified whether behavioral, psychotic, or mood disturbance or anxiety Dementia type: unspecified type Acute UTI N39.0 Urinary incontinence R32 (5) Pulmonary embolism Pulmonary embolism type: unspecified Chronicity: acute Acute cor pulmonale presence: unspecified Qualified Code(s): I26.99 - Other pulmonary embolism without acute cor pulmonale (7) Advanced dementia Dementia behavioral or psychological symptom: unspecified whether behavioral, psychotic, or mood disturbance or anxiety Dementia type: unspecified type Qualified Code(s): F03.C0 - Unspecified dementia, severe, without behavioral disturbance, psychotic disturbance, mood disturbance, and anxiety
[2024-04-26] MEDS: DEXAMETHASONE SOD INJ 4 MG/ML VIAL IV STA (20:19)
[2024-04-26] MEDS: cefTRIAXone SODIUM 2,000 MG/50 ML BAG IV SCH (21:25)
[2024-04-26] MEDS ORDERED: ACETAMINOPHEN 325 MG TAB PO PRN (22:35)
[2024-04-26] MEDS ORDERED: ONDANSETRON INJ 2 MG/ML 2 ML VIAL IV PRN (22:35)
[2024-04-26] MEDS: MEMANTINE HCL 10 MG TAB PO SCH (23:20)
[2024-04-26] MEDS: NSS + 20MEQ KCL 20 MEQ/1,000 ML BAG IV SCH (23:21)
[2024-04-27] MEDS: APIXABAN 5 MG TABLET PO SCH (01:05)
[2024-04-27 07:29] LABS: Basophils # (auto) 0.01 K/uL (0.00-0.20); Basophils % (auto) 0.2 %; Hematocrit (blood only) 44.6 % (37.0-47.0); Hemoglobin 14.8 g/dl (12.0-16.0); Immature Granulocytes # (auto) 0.02 K/uL (0.01-0.20); Immature Granulocytes % (auto) 0.3 %; Lymphocytes # (auto) 1.05 K/uL (1.20-3.40); Mean Corpuscular Hemoglobin 32.7 pg (25.0-34.0); Mean Corpuscular Hgb Conc 33.2 g/dL (32.0-36.0); Mean Corpuscular Volume 98.5 fL (80.0-100.0); Mean Platelet Volume 8.7 fL (9.4-12.4); Monocytes # (auto) 0.64 K/uL (0.11-0.59); Monocytes % (auto) 10.3 %; Neutrophils # (auto) 4.47 K/uL (1.40-6.50); Neutrophils % (auto) 72.2 %; Platelet Count 202 K/uL (130-400); RDW Coefficient of Variation 11.9 % (11.5-14.5); RDW Standard Deviation 43.3 fL (36.4-46.3); Red Blood Count 4.53 M/uL (4.20-5.40); White Blood Count 6.19 K/ul (4.8-10.8)
[2024-04-27 07:40] LABS: Albumin Level 3.7 gm/dl (3.4-5.0); BUN Creatinine Ratio 19.2 (10-20); Calcium 8.9 mg/dl (8.6-10.3); Creatinine Clr Calc Pharmacy 67.7 ml/min; Phosphorus 4.1 mg/dl (2.5-4.9); Potassium 4.5 mmol/L (3.5-5.1)
[2024-04-27 07:48] LABS: Troponin I High Sensitivity 8.1 pg/ml (0-14)
[2024-04-27] MEDS: dexAMETHasone 6 MG in SYRINGE 0 ML IV SCH (08:05)
[2024-04-27] MEDS: FAMOTIDINE 20 MG TAB PO SCH (08:41)
--- NOTE | 2024-04-27 12:09 | XCELERA ---
[id number]
--- NOTE | 2024-04-27 14:54 | Electrocardiogram Report ---
Test Reason : Blood Pressure : */* mmHG Vent. Rate : 71 BPM Atrial Rate : 71 BPM P-R Int : 178 ms QRS Dur : 74 ms QT Int : 420 ms P-R-T Axes : 57 8 56 degrees QTcB Int : 456 ms Normal sinus rhythm Normal ECG When compared with ECG of 26-Apr-2024 14:56, Nonspecific T wave abnormality no longer evident in Anterior leads Confirmed by Sung Bazan ([id number]) on 04/27/2024 2:54:21 PM Referred By: REFERRED SELF Confirmed By: Sung Bazan
--- NOTE | 2024-04-27 14:58 | Hospitalist Progress Note ---
Date of Service April 27, 2024 Assessment & Plan (1) COVID-19: Plan: Pulse ox 93- 94% on room air continue dexamethasone 6 mg IV remedsivir as pt is at risk for severe disease PT/OT (2) Confusion: Plan: Metabolic encephalopathy due to COVID-19, dehydration, Baseline dementia - oriented to self only worse in the setting of COVID. Received IVF. inital concerns for UTI, but UA negative. abx stopped. continue memantine Frequent orientation (3) Urinary incontinence: Plan: Hematuria/history UTI/urinary incontinence/dehydration- UA not concerning for UTI, abx stopped. no reflex culture Received normal saline 1 L bolus from the ED (4) Elevated troponin: Plan: Initial troponin 24.3, with follow-up 18.6 ECHO: no pericarditis, EF 60-65, no region wall motion abnormalities Plan Chronic stable medical conditions * hx of DVT/PE - continue eliquis dispo: continued inpatient stay DVT proh: home eliquis updated by phone 04/27 Admission and Anticipated Discharge Date Admission Date: April 26, 2024 Supervising Physician Co-Signing Physician Notes Attending Attestation - Chart reviewed, care plan d/w ELLIOTT Sainz. I agree w/ the gil components of her documentation. Add Remdesivir for COVID - patient is in "window" for institution of such, and is at high risk of disease progression. Joe Burns MD Subjective patient seen at the end of her PT session able to tell me her birthday but that is it Review of Systems Review of Systems: Unobtainable due to cognitive status Physical Exam Physical Exam: General: NAD, VS as above Resp: normal respiratory effort, lungs clear to auscultation CV: RRR, no murmur, Extremities: Moves all extremities, no edema Neuro: A&O x1, Results & Data Results & Data Vital Signs (Past 12 Hours) Vital Signs Temp Pulse Resp BP Pulse Ox O2 Del Method 04/27/24 14:35 98.4 F 78 16 140/74 98 04/27/24 08:14 98.2 F 65 24 104/63 93 Room Air 04/27/24 06:00 81 20 92 Room Air 04/27/24 05:00 84 16 93 Room Air 04/27/24 03:00 90 16 93 Room Air Laboratory Results CBC and chemistry reviewed Diagnostic Findings echo reviewed PG Care Time/CCT Total # of Minutes Spent Total Time Spent with Patient: Total time spent is greater than 50% in coordination of care (as documented) at patient's floor/unit and/or counseling patient: Coding Level of Care Code 15630 SUB INP/OBS CARE 3/50MIN Diagnoses COVID-19 U07.1 Confusion R41.0 Urinary incontinence R32 Elevated troponin R79.89
[2024-04-27] MEDS: REMDESIVIR 200 MG in SODIUM CHLORIDE 0.9% 210 ML IV STA (16:53)
[2024-04-28 03:04] VITALS: RESP 16; TEMP 97.9
[2024-04-28 08:33] VITALS: BP 126/72; O2SAT 97
[2024-04-28] MEDS: SENNA 8.6 MG TAB PO SCH (09:36)
[2024-04-28 10:35] VITALS: PULSE 61
--- NOTE | 2024-04-28 10:48 | Discharge Summary ---
Discharge Summary Date of Service April 28, 2024 Principal Dx & Hospital Course #1 = Principal Diagnosis (1) COVID-19: Pulse ox 93- 97% on room air tolerated remdesivir and dexamethasone while inpatient PT/OT - pt at baseline, recommend home with support present for AM ADLs, states Edie is back to her baseline and he feels comfortable taking her back home and caring for her (2) Confusion: Metabolic encephalopathy due to COVID-19, dehydration, Baseline dementia - oriented to self only worse in the setting of COVID. Received IVF. inital concerns for UTI, but UA negative. abx stopped. continue memantine Frequent orientation Encourage PO hydration at home (3) Urinary incontinence: Hematuria/history UTI/urinary incontinence/dehydration- UA not concerning for UTI, abx stopped. no reflex culture Received normal saline 1 L bolus from the ED (4) Elevated troponin: Initial troponin 24.3, with follow-up 18.6 ECHO: no pericarditis, EF 60-65, no region wall motion abnormalities Plan Chronic stable medical conditions * hx of DVT/PE - continue eliquis dispo: discharge to home today with support updated by phone 04/27 and in person 04/28 Notes For Next Care Provider no medication changes Admission HPI Per Admitting Provider The patient is a 73-year-old female with a past medical history including right lower extremity DVT, pulmonary embolism on Eliquis, history urinary tract infections, GERD, history of subarachnoid hemorrhage and advanced dementia. She is brought to the emergency department due to worsening confusion, and progressive generalized weakness and decreased ambulatory function. Patient had testing done emergency department which also showed COVID infection. Testing also was positive for elevated troponin of 24.3, which decreased to 18.6 on follow-up. Discharge Exam General: NAD, VS as above Resp: normal respiratory effort, lungs clear to auscultation CV: RRR, no murmur, Extremities: Moves all extremities, no edema Neuro: A&O x1, able to follow simple commands Discharge Plan Discharge Items Patient Disposition: Home - Self-Care Reason For Visit: CONFUSIN, COVID INFECTION, ELEVATED TROPONIN Discharge Diagnosis: AMS Covid Activity: Resume your previous activity Non-emergency contact: Primary Care Provider Call non-emergency contact if: you have any medication questions and your symptoms worsen Follow-up/Referrals: Vaughn Jefferson, DO [Primary Care Provider] - (Follow up in one week ) Diet: Regular Addtl Attending Provider Instructions: Ms. Bland, You were hospitalized after having worsening confusion - this was likely caused by dehydration and COVID infection. Thankfully, you did not have any breathing difficulties. You recieved some steroids and antivirals to help prevent worsening COVID infection. Recommendations: - no changes to home medication - make sure you are staying hydrated - follow up with PCP in one week CONTACT YOUR PRIMARY CARE PROVIDER if you experience any of the following: Shortness of breath or difficulty breathing Fevers or chills Feeling tired with normal activity or experiencing dizziness or fainting Difficulty following your treatment plan, or difficulty taking medications CALL 911 OR GO TO THE EMERGENCY DEPARTMENT if you experience any of the following: Severe abdominal pain or nausea/vomiting Severe chest pain, or chest pain that radiates (moves) to your jaw or arm Sudden, severe shortness of breath or difficulty breathing Thank you for allowing us to participate in your care. Pending Studies at Discharge: No Stand-Alone Forms: [facility] [employer], Smoking Cessation Medications and DC Order Prescriptions: New sennosides [Senokot] 8.6 mg Tablet 8.6 mg PO QAM Qty: 30 0RF Continued famotidine 20 mg tablet 20 mg PO DAILY Qty: 30 2RF Eliquis 5 mg tablet 5 mg PO BID Qty: 60 5RF memantine 10 mg tablet 10 mg PO BID Discharge Orders: Discharge Order (Routine); Ordered 04/28/24 Ordered By: Eugenie Sainz Admission Data Admit Date/Time: 04/26/24 19:50 Attending Provider: Joe Burns Admit Provider: Surinder Mary Primary Care Provider: Vaughn Jefferson Other Providers: Freddy Arroyo Hospital Stay Data Consultations 04/26/24 18:50 ED Decision to Admit Stat Diagnostic Imagining Performed Chest X-Ray 04/26/24 14:41 XR chest 1V portable CLINICAL HISTORY: weakness COMPARISON STUDY: Chest CT February 17, 2024. Chest radiograph February 26, 2024. FINDINGS: S-shaped scoliosis of the thoracolumbar spine is incidentally noted. There is no pneumothorax. Pulmonary vascular congestion is again noted. No definite pleural effusions. Linear left basilar densities favor atelectasis. There is no consolidation to suggest pneumonia. Cardiomediastinal silhouette is stable. IMPRESSION: 1. No significant change in appearance of the chest. Pulmonary vascular congestion. 2. Linear left lower lung densities suggestive of atelectasis or scarring. ACT 112: Negative or not required by law. Electronically signed by: Elio Ku M.D. 04/26/2024 3:[address] 04/26/24 14:41 CT OF THE HEAD WITHOUT CONTRAST CLINICAL HISTORY: confusion COMPARISON STUDY: MRI of the brain January 27, 2022. Head CT February 26, 2024. CT DOSE: 547.75 mGy.cm TECHNIQUE: Helical axial images of the head were obtained without IV contrast. Automated exposure control was utilized for the study. A dose lowering technique was utilized adhering to the principles of ALARA. FINDINGS: This exam is mildly compromised by motion artifact. No acute intracranial hemorrhage, midline shift or mass effect is present. Ventricular dilatation is unchanged. Basal cisterns are patent. There are no axial collections. There are no findings to suggest acute dural sinus thrombosis or acute territorial infarct. A nondisplaced left temporal bone fracture is again noted. This was shown on prior exam. No additional fractures are identified. IMPRESSION: 1. No acute intracranial findings. No change in appearance of the brain. 2. Exam moderately compromised by motion artifact. ACT 112: Negative or not required by law. Electronically signed by: Elio Ku M.D. 04/26/2024 3:45 PM Pending Results Patient Have Any Pending Studies at Discharge: No Discharge Instructions Given to Patient (Per Discharging Provider) Ganesh Mace were hospitalized after having worsening confusion - this was likely caused by dehydration and COVID infection. Thankfully, you did not have any breathing difficulties. You recieved some steroids and antivirals to help prevent worsening COVID infection. Recommendations: - no changes to home medication - make sure you are staying hydrated - follow up with PCP in one week CONTACT YOUR PRIMARY CARE PROVIDER if you experience any of the following: Shortness of breath or difficulty breathing Fevers or chills Feeling tired with normal activity or experiencing dizziness or fainting Difficulty following your treatment plan, or difficulty taking medications CALL 911 OR GO TO THE EMERGENCY DEPARTMENT if you experience any of the following: Severe abdominal pain or nausea/vomiting Severe chest pain, or chest pain that radiates (moves) to your jaw or arm Sudden, severe shortness of breath or difficulty breathing Thank you for allowing us to participate in your care. Total Time Total Time Spent Total Time Spent (In Minutes): Time spent day of discharge 34 minutes including direct patient care, medication reconciliation, documentation, review of labs and images, and coordination of care. Coding Level of Care Code 93450 INP/OBS DISCH >30 MIN Diagnoses COVID-19 U07.1 Confusion R41.0 Urinary incontinence R32 Elevated troponin R79.89
--- NOTE | 2024-04-28 10:59 | Electrocardiogram Report ---
Test Reason : Blood Pressure : */* mmHG Vent. Rate : 59 BPM Atrial Rate : 59 BPM P-R Int : 164 ms QRS Dur : 88 ms QT Int : 450 ms P-R-T Axes : 23 9 24 degrees QTcB Int : 445 ms Sinus bradycardia Otherwise normal ECG When compared with ECG of 27-Apr-2024 10:23, No significant change was found Confirmed by Sung Bazan ([id number]) on 04/28/2024 10:59:05 AM Referred By: REFERRED SELF Confirmed By: Sung Bazan
[2024-04-28 11:07] LABS: Basophils # (auto) 0.01 K/uL (0.00-0.20); Basophils % (auto) 0.2 %; Eosinophils # (auto) 0.15 K/uL (0.00-0.50); Eosinophils % (auto) 2.6 %; Hematocrit (blood only) 46.3 % (37.0-47.0); Hemoglobin 15.1 g/dl (12.0-16.0); Immature Granulocytes # (auto) 0.01 K/uL (0.01-0.20); Immature Granulocytes % (auto) 0.2 %; Lymphocytes # (auto) 1.53 K/uL (1.20-3.40); Lymphocytes % (auto) 26.9 %; Mean Corpuscular Hemoglobin 32.8 pg (25.0-34.0); Mean Corpuscular Hgb Conc 32.6 g/dL (32.0-36.0); Mean Corpuscular Volume 100.7 fL (80.0-100.0); Mean Platelet Volume 9.2 fL (9.4-12.4); Monocytes # (auto) 0.63 K/uL (0.11-0.59); Monocytes % (auto) 11.1 %; Neutrophils # (auto) 3.36 K/uL (1.40-6.50); Platelet Count 233 K/uL (130-400); RDW Standard Deviation 45.1 fL (36.4-46.3); White Blood Count 5.69 K/ul (4.8-10.8)
[2024-04-28 11:22] LABS: Albumin Globulin Ratio 1.4 (0.9-2); Albumin Level 3.8 gm/dl (3.4-5.0); BUN Creatinine Ratio 31.1 (10-20); Bilirubin,Total 0.3 mg/dl (0.2-1.0); Calcium 8.8 mg/dl (8.6-10.3); Creatinine Clr Calc Pharmacy 66.8 ml/min; Globulin 2.7 gm/dl (2.5-4.0); Potassium 3.4 mmol/L (3.5-5.1); Total Protein 6.5 gm/dl (6.0-8.3)
[2024-04-28] MEDS ORDERED: REMDESIVIR 100 MG in SODIUM CHLORIDE 0.9% 230 ML IV SCH (15:45)
== END 2024-04-28 14:29 | disposition home or self-care (01) | DRG 177 ==
LOC: ED 14:32 → SUATTDRO 19:50 → EDINP 19:50 → 4W 22:35

== ENCOUNTER 2025-01-22 14:47 | Observation (INO) ==
--- NOTE | 2025-01-22 14:53 | Emergency Department Note ---
Impression & Plan UTI (urinary tract infection), Dementia with behavioral disturbance, Confusion ED Provider Note NAME: MAYNOR OLIVARES AGE: 74 SEX: F : 1950 ARRIVES VIA: Ambulance INFORMANT: Patient, Nursing ED PROVIDER(S): Charlie Benedict MD CHIEF COMPLAINT: Confusion MEDICAL DECISION MAKING: Patient presents from home due to concern for worsening confusion known history of dementia. Patient does not participate much in questioning. IV was established and blood work was obtained. Patient prior cultures reviewed which showed pansensitive E. coli in the past. Patient was ordered IV fluids and IV Rocephin. Blood work shows a normal white count H&H and platelet count kidney function is unremarkable with normal electrolytes. Patient's urinalysis does show concern for infection. Chest x-ray was obtained shows possible trace left pleural effusion. Given these issues and the fact that the cannot take care of her at home I did speak with the on-call hospital service Dr. Marrero and the patient was admitted to the medicine service. Discussion w/ other healthcare providers: Dr. Goel inpatient medicine service Prior /Outside records reviewed: None Differential diagnosis: Infection, dehydration, metabolic abnormality, hypo/hyperglycemia, electrolyte imbalance, anemia, UTI, pneumonia, thyroid dysfunction among others were considered. Diagnostics, as interpreted by me: ECG: Normal sinus rhythm, rate of 80, normal intervals, normal axis no ST elevations T wave inversion in V2. Cardiac monitoring: An order was placed for continuous cardiac monitoring. The monitor shows a rate of 85 with sinus rhythm. Patient was placed on pulse oximetry Medical decision rules: None Imaging studies: I informally interpreted the patient's chest x-ray does not show obvious pneumonia with formal report to follow. HPI: Patient presents from home. Majority of the history is obtained from the nursing staff as they received EMS report. Patient does present from home due to concern for increasing weakness and confusion. The patient is unable to get up out of bed and can only use a wheelchair. Patient is unable to use her walker. Patient reportedly is more confused from her baseline as she does have a history of dementia. There is concern about a possible UTI. When asked if the patient had pain patient said "you do not know?" PAST MEDICAL HISTORY: See Below PAST SURGICAL HISTORY: See Below SOCIAL HISTORY: See Below HOME MEDICATIONS: See Below ALLERGIES: See Below VITALS: See Below PHYSICAL EXAMINATION: GENERAL: NAD, non-toxic. EYE EXAM: Normal conjunctiva. PERRL, no anisocoria and EOM's grossly intact w/o pain. OROPHARYNX: Moist mucus membranes, grossly normal dentition. NECK: Trachea midline, no stridor. LUNGS: Clear to auscultation. Normal chest wall mechanics. HEART: NSR, no MRG. ABDOMEN: Abdomen soft, non-tender, no masses, no rebound or guarding. BACK: No CVA TTP. SKIN: No rashes and no bruising. UPPER EXTREMITIES: Upper extremities are grossly normal. LOWER EXTREMITIES: Grossly normal, no edema. NEURO EXAM: Awake and alert, does not follow commands, no obvious facial asymmetry, normal speech, able to move all 4 extremities. Past Med/Surg History Problem List (Updated 01/22/25 @ 19:11 by Charlie Benedict MD) Confusion (Acute) UTI (urinary tract infection) (Acute) B12 deficiency Dementia with behavioral disturbance (Acute) COVID-19 (Acute) Back pain (Acute) Urinary urgency Medical History Right leg DVT Acute UTI Advanced dementia Pulmonary embolism Urinary incontinence History of subarachnoid hemorrhage Hip fracture, right (12/05/23) displaced right intertrochanteric femur fracture from a fall off a ladder-had orthopedic surgery at [facility] in [place] Dementia in other diseases classified elsewhere, unspecified severity, without behavioral disturbance, psychotic disturbance, mood disturbance, and anxiety Dyslipidemia Subdural hemorrhage Traumatic subarachnoid hemorrhage Hx of fracture of right hip (~11/2023) Intramedullary nail fixation right hip History of colon polyps Poor historian pt had difficulty remembering some of her health status/issues when asked 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 Surgical History History of tooth extraction Hx of colonoscopy with polypectomy 04/2021 repeat 5 yrs S/P tonsillectomy and adenoids Family History Father Prostate cancer Dementia Hypertension Mother Diabetes Heart disease congenital heart disease, h/o CHF Hypertension Grandmother Breast cancer Grandmother (Maternal) Myocardial infarction Other No family history of adverse response to anesthesia Denies family history of Ovarian cancer Lung cancer Colorectal cancer Social History Smoking Status: Unknown if ever smoked Second Hand Exposure: No; Do You Dip or Chew Tobacco: No; Hx Alcohol Use: No Hx Substance Use: No Preferred Language: Monegasque Communication Ability: confused Communication Ability Comment: pt has history of dementia and struggles to follow commands but is able Visual Impairment: Limited Hearing Ability: Normal Director Toxicology Required: No Beliefs That Will Affect Care: None marital status: Current Living Situation: Spouse current occupational status: retired 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 How many Children do You have: 2 Feels Safe at Home: Yes Childhood Exposure to Second-Hand Smoke: Yes Diet: regular caffeine: Yes (very seldom) during the past year weight has: increased > 10 lbs Dental Care, Regularly: Yes Physical Activity Frequency: Does not Exercise Seatbelt Use: always Sunscreen Use: No Assistive Devices: Walker and Wheelchair Allergies Allergies Allergy/AdvReac Type Severity Reaction Status Date / Time No Known Allergies Allergy Verified 01/22/25 15:57 Home Meds Home Medications Medication Instructions Recorded Confirmed cholecalciferol (vitamin D3) 125 125 mcg PO DAILY 05/25/24 01/22/25 mcg (5,000 unit) capsule acetaminophen 325 mg tablet 650 mg PO Q6H PRN fever or pain 11/08/24 01/22/25 apixaban 5 mg tablet 5 mg PO BID 11/08/24 01/22/25 ceramides 1,3,6-II (CeraVe topical 1 applic topical DIRECTED PRN 01/22/25 01/22/25 cream) Itching sennosides 8.6 mg tablet (Senokot) 8.6 mg PO Q OTHER DAY 01/22/25 01/22/25 Previous Rx's Medication Instructions Recorded famotidine 20 mg tablet 20 mg PO DAILY #90 tabs 12/04/24 memantine 10 mg tablet 10 mg PO BID 90 days #180 tabs 12/24/24 nystatin 100,000 unit/gram topical 1 applic topical BID PRN itching 01/09/25 cream #30 grams Results & Data (ED) Vital Signs Vital Signs - 24 hr 01/22/25 15:16 01/22/25 15:17 01/22/25 15:42 Temperature 37.2 C Temperature Source Oral Pulse Rate 82 82 Pulse Rhythm Regular Pulse Strength Normal Respiratory Rate 19 Respiratory Effort / Characteristics Non-Labored Spontaneous Respiratory Depth Normal Respiratory Pattern Regular Blood Pressure 130/77 Blood Pressure Mean 94 Blood Pressure Position Lying Pulse Oximetry 97 Oxygen Delivery Method Room Air Room Air Sepsis Recent Fever Within 48 Hours No Sepsis New/Unexplained Change in Mental Status Yes Sepsis Action Taken by Nursing No Action Required Home Medications Current Medication List: was personally reviewed by me Laboratory Data Attestation: I reviewed the patient's lab results. 01/22/25 15:15 01/22/25 15:15 Lab Results 01/22/25 01/22/25 01/22/25 Range/Units 15:07 15:15 15:31 WBC 8.16 (4.8-10.8) K/ul RBC 4.63 (4.20-5.40) M/uL Hgb 15.6 (12.0-16.0) g/dl Hct 46.2 (37.0-47.0) % MCV 99.8 (80.0-100.0) fL MCH 33.7 (25.0-34.0) pg MCHC 33.8 (32.0-36.0) g/dL RDW Std Deviation 44.5 (36.4-46.3) fL RDW Coeff of Yeimi 12.0 (11.5-14.5) % Plt Count 264 (130-400) K/uL MPV 8.7 L (9.4-12.4) fL Immature Gran % (Auto) 0.4 % Neut % (Auto) 64.8 % Lymph % (Auto) 21.8 % [place] % (Auto) 10.8 % Eos % (Auto) 1.7 % Baso % (Auto) 0.5 % Neut # (Auto) 5.29 (1.40-6.50) K/uL Lymph # (Auto) 1.78 (1.20-3.40) K/uL [place] # (Auto) 0.88 H (0.11-0.59) K/uL Eos # (Auto) 0.14 (0.00-0.50) K/uL Baso # (Auto) 0.04 (0.00-0.20) K/uL Immature Gran # (Auto) 0.03 (0.01-0.20) K/uL Sodium 140 (136-145) mmol/L Potassium 3.9 (3.5-5.1) mmol/L Chloride 103 (98-107) mmol/L Carbon Dioxide 30 (21-32) mmol/L Anion Gap 7 (3-11) BUN 14 (6-23) mg/dl Creatinine 0.86 (0.6-1.2) mg/dl Est Cr Clr Drug Dosing 59.8 ml/min eGFR 71.73 BUN/Creatinine Ratio 16.3 (10-20) Glucose 89 (70-99(Fasting)) mg/dl POC Glucose 94 (70-99) mg/dl Calcium 9.6 (8.6-10.3) mg/dl Total Bilirubin 0.6 (0.2-1.0) mg/dl AST 21 (13-39) U/L ALT 21 (7-52) U/L Alkaline Phosphatase 92 (34-104) U/L Total Protein 7.1 (6.0-8.3) gm/dl Albumin 3.8 (3.4-5.0) gm/dl Globulin 3.3 (2.5-4.0) gm/dl Albumin/Globulin Ratio 1.2 (0.9-2) TSH 3.551 (0.300-4.500) uIu/ml Urine Color Yellow Urine Appearance Cloudy A (Clear) Urine pH 7.5 (4.5-7.5) Ur Specific [place] 1.020 (1.000-1.030) Urine Protein Trace H (Negative) Urine Glucose (UA) Negative (Negative) Urine Ketones Trace H (Negative) Urine Blood Negative (Negative) Urine Nitrite Negative (Negative) Urine Bilirubin Negative (Negative) Urine Urobilinogen Negative (Negative) Ur Leukocyte Esterase 1+ H (Negative) Urine WBC (Auto) 0-5 (0-5) /hpf Urine RBC (Auto) 6-10 H (0-2) /hpf U Hyaline Cast (Auto) 0-2 (0-2) /lpf U Epithel Cells (Auto) 0-2 (0-2) /hpf Urine Bacteria (Auto) 4+ H (None Seen) Urine Comment Administered Medications Discontinued Medications Sodium Chloride (Nss) 1,000 mls @ 999 mls/hr IV .Q1H1M OLIVIER Stop: 01/22/25 16:15 Last Infusion: 01/22/25 16:56 Dose: Infused Documented By: Admin: 01/22/25 15:55 Dose: 999 mls/hr Documented By: ABDIRAHMAN Ceftriaxone Sodium (Rocephin) 2,000 mg in 50 mls @ 100 mls/hr IV NOW STA Stop: 01/22/25 15:37 Last Infusion: 01/22/25 16:23 Dose: Infused Documented By: Admin: 01/22/25 15:53 Dose: 100 mls/hr Documented By: ABDIRAHMAN Imaging Data Radiologist's Impression: Chest X-Ray 01/22/25 15:08 XR chest 1V portable CLINICAL HISTORY: weakness COMPARISON STUDY: Chest radiograph October 19, 2024. Chest CT November 04, 2024 FINDINGS: Lung volumes are diminished. Blunting of the left costophrenic angle is noted. This may be due to epicardial fat pad or a trace left pleural effusion. There is pulmonary vascular congestion without overt pulmonary edema. Linear left midlung density favors atelectasis. There is no consolidation to suggest pneumonia. There is no pneumothorax. IMPRESSION: 1. Pulmonary vascular congestion. Possible trace left pleural effusion. 2. Linear left midlung density suggestive of atelectasis. 3. Low lung volumes. ACT 112: Negative or not required by law. Electronically signed by: Elio Ku M.D. 01/22/2025 3:49 PM Discharge Plan Visit Data Chief Complaint: Urinary Symptoms ED Provider: Charlie Benedict Discharge Problem: UTI (urinary tract infection), Dementia with behavioral disturbance, Confusion Patient Disposition: Admitted As Inpatient Condition: Good Discharge Instructions Interventions: ED Discharge Assessment Last Done: 01/22/25 18:44 Discharge Problem: UTI (urinary tract infection) Qualifiers: Urinary tract infection type: acute cystitis Hematuria presence: with hematuria Qualified Code(s): N30.01 - Acute cystitis with hematuria
[2025-01-22 15:30] LABS: Hematocrit (blood only) 46.2 % (37.0-47.0); Hemoglobin 15.6 g/dl (12.0-16.0); Immature Granulocytes # (auto) 0.03 K/uL (0.01-0.20); Immature Granulocytes % (auto) 0.4 %; Mean Corpuscular Hemoglobin 33.7 pg (25.0-34.0); Mean Corpuscular Volume 99.8 fL (80.0-100.0); Platelet Count 264 K/uL (130-400); RDW Standard Deviation 44.5 fL (36.4-46.3); Red Blood Count 4.63 M/uL (4.20-5.40); White Blood Count 8.16 K/ul (4.8-10.8)
[2025-01-22 15:45] LABS: Appearance Urine Cloudy (Clear); Bacteria Urine Automated 4+ (None Seen); Cast Urine Automated 0-2 /lpf (0-2); Epithelial Cell Urine Auto 0-2 /hpf (0-2); Glucose Urine UA Negative (Negative); WBC Urine Automated 0-5 /hpf (0-5)
--- NOTE | 2025-01-22 15:51 | XRay Report ---
XR chest 1V portable CLINICAL HISTORY: weakness COMPARISON STUDY: Chest radiograph October 19, 2024. Chest CT November 04, 2024 FINDINGS: Lung volumes are diminished. Blunting of the left costophrenic angle is noted. This may be due to epicardial fat pad or a trace left pleural effusion. There is pulmonary vascular congestion wi thout overt pulmonary edema. Linear left midlung density favors atelectasis. There is no consolidatio n to suggest pneumonia. There is no pneumothorax. IMPRESSION: 1. Pulmonary vascular congestion. Possible trace left pleural effusion. 2. Linear left midlung density suggestive of atelectasis. 3. Low lung volumes. ACT 112: Negative or not required by law. Electronically signed by: Elio Ku M.D. 01/22/2025 3:49 PM
[2025-01-22] MEDS: cefTRIAXone SODIUM 2,000 MG/50 ML BAG IV STA (15:53)
[2025-01-22] MEDS: SODIUM CHLORIDE 0.9% 1,000 ML IV SCH (15:55)
[2025-01-22 15:56] LABS: Alanine Aminotransferase 21.0 U/L (7-52); Albumin Globulin Ratio 1.2 (0.9-2); Alkaline Phosphatase 92.0 U/L (34-104); Anion Gap 7.0 (3-11); Bilirubin,Total 0.6 mg/dl (0.2-1.0); Blood Urea Nitrogen 14.0 mg/dl (6-23); Calcium 9.6 mg/dl (8.6-10.3); Carbon Dioxide 30.0 mmol/L (21-32); Chloride 103.0 mmol/L (98-107); Creatinine Clr Calc Pharmacy 59.8 ml/min; Globulin 3.3 gm/dl (2.5-4.0); Glucose 89.0 mg/dl (70-99(Fasting)); Potassium 3.9 mmol/L (3.5-5.1); Sodium 140.0 mmol/L (136-145); Total Protein 7.1 gm/dl (6.0-8.3)
[2025-01-22 16:11] LABS: Thyroid Stimulating Hormone 3.551 uIu/ml (0.300-4.500)
--- NOTE | 2025-01-22 16:31 | History & Physical Report ---
Date of Service January 22, 2025 Assessment & Plan (1) UTI (urinary tract infection): (2) Dementia with behavioral disturbance: (3) Confusion: (4) Pulmonary embolism: (5) Right leg DVT: (6) History of subarachnoid hemorrhage: Plan The patient is a 74-year-old female with a past medical history including B12 deficiency, dementia with behavioral disturbance, urinary tract infection, right lower extremity DVT and saddle pulmonary embolism on Eliquis, history of falls, and GERD. Her brought her into the emergency department today reporting he was having increasing difficulty taking care of her. the patient is unable to answer questions due to her severe dementia. Workup in the emergency department was consistent with a urinary tract infection, for which she was started on ceftriaxone 2 g IV and was given 1 L normal saline. Urinary tract infection- History of pansensitive E. coli from 12/05/2023 and 02/17/2024. Follow urine culture and sensitivity Ceftriaxone 2 g IV given in the ED, and will continue every 24 hours Status post 1 L normal saline bolus in the ED Continue rehydration with normal saline + KCl 20 mEq at 100 mL/h x 1 L Likely because of recent change of worsening confusion on top of underlying dementia Dementia with behavior disturbance- Continue memantine Her functional level will need to be reassessed after treatment for UTI, to determine if her will be able to take care of her at home. History of right lower extremity DVT and saddle PE/history of subarachnoid hemorrhage- Continue Eliquis 5 mg p.o. twice daily GERD- Continue famotidine CODE STATUS: DNR/DNI History of Present Illness Chief Complaint: The patient is brought to the ED due to worsening of her baseline dementia and confusion. Primary Care Provider: Vaughn Jefferson DO The patient is a 74-year-old female with a past medical history including B12 deficiency, dementia with behavioral disturbance, urinary tract infection, saddle pulmonary embolism on Eliquis, history of falls, and GERD. Her brought her into the emergency department today reporting he was having increasing difficulty taking care of her. the patient is unable to answer questions due to her severe dementia. Workup in the emergency department was consistent with a urinary tract infection, for which she was started on ceftriaxone 2 g IV and was given 1 L normal saline. Allergies Allergy/AdvReac Type Severity Reaction Status Date / Time No Known Allergies Allergy Verified 01/22/25 15:57 Home Medications Medication Instructions Recorded Confirmed Type cholecalciferol (vitamin D3) 125 125 mcg PO DAILY 05/25/24 01/22/25 History mcg (5,000 unit) capsule acetaminophen 325 mg tablet 650 mg PO Q6H PRN fever or pain 11/08/24 01/22/25 History apixaban 5 mg tablet 5 mg PO BID 11/08/24 01/22/25 History famotidine 20 mg tablet 20 mg PO DAILY #90 tabs 12/04/24 01/22/25 Rx memantine 10 mg tablet 10 mg PO BID 90 days #180 tabs 12/24/24 01/22/25 Rx nystatin 100,000 unit/gram topical 1 applic topical BID PRN itching 01/09/25 01/22/25 Rx cream #30 grams ceramides 1,3,6-II (CeraVe topical 1 applic topical DIRECTED PRN 01/22/25 01/22/25 History cream) Itching sennosides 8.6 mg tablet (Senokot) 8.6 mg PO Q OTHER DAY 01/22/25 01/22/25 History Past Med/Surg History Problem List (Updated 01/22/25 @ 16:39 by Surinder Mary MD) Confusion UTI (urinary tract infection) B12 deficiency Dementia with behavioral disturbance COVID-19 (Acute) Back pain (Acute) Urinary urgency Medical History (Updated 01/22/25 @ 16:39 by Surinder Mary MD) Right leg DVT Acute UTI Advanced dementia Pulmonary embolism Urinary incontinence History of subarachnoid hemorrhage Hip fracture, right (12/05/23) displaced right intertrochanteric femur fracture from a fall off a ladder-had orthopedic surgery at [facility] in [place] Dementia in other diseases classified elsewhere, unspecified severity, without behavioral disturbance, psychotic disturbance, mood disturbance, and anxiety Dyslipidemia Subdural hemorrhage Traumatic subarachnoid hemorrhage Hx of fracture of right hip (~11/2023) Intramedullary nail fixation right hip History of colon polyps Poor historian pt had difficulty remembering some of her health status/issues when asked 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 Surgical History History of tooth extraction Hx of colonoscopy with polypectomy 04/2021 repeat 5 yrs S/P tonsillectomy and adenoids Family History Father Prostate cancer Dementia Hypertension Mother Diabetes Heart disease congenital heart disease, h/o CHF Hypertension Grandmother Breast cancer Grandmother (Maternal) Myocardial infarction Other No family history of adverse response to anesthesia Denies family history of Ovarian cancer Lung cancer Colorectal cancer Social History Smoking Status: Unknown if ever smoked Second Hand Exposure: No; Do You Dip or Chew Tobacco: No; Hx Alcohol Use: No Hx Substance Use: No Preferred Language: Wolof Communication Ability: confused Communication Ability Comment: pt has history of dementia and struggles to follow commands but is able Visual Impairment: Limited Hearing Ability: Normal Tmd Teacher Assistant Required: No Beliefs That Will Affect Care: None marital status: Current Living Situation: Spouse current occupational status: retired 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 normocephalic and atraumatic, lying in bed and in no acute distress. HEENT--PERRL, EOMI, mucous membranes and oropharynx dry. Neck--supple. No JVD. No bruits. Thyroid normal, trachea midline, no adenopathy. Heart--normal S1 and S2. No murmurs, rubs or gallops. Lungs--clear bilaterally, no respiratory distress, no accessory muscle use. Abdomen--normal bowel sounds and soft. Nontender. Nondistended Extremities--no cyanosis or clubbing. No edema. There are good distal pulses b/l. Dermatologic--normal skin turgor, normal color, no abnormal lymph nodes, no rash. Neurologic--cranial nerves II through XII grossly intact. Rheumatologic--normal range of motion. Psychiatric--normal affect. Results & Data Results & Data Vital Signs (Past 12 Hours) Vital Signs Temp Pulse Resp BP Pulse Ox O2 Del Method 01/22/25 15:42 Room Air 01/22/25 15:17 82 01/22/25 15:16 37.2 C 82 19 130/77 97 Room Air Laboratory Results Laboratory Results WBC 8.16 K/ul (4.8-10.8) 01/22/25 15:15 RBC 4.63 M/uL (4.20-5.40) 01/22/25 15:15 Hgb 15.6 g/dl (12.0-16.0) 01/22/25 15:15 Hct 46.2 % (37.0-47.0) 01/22/25 15:15 MCV 99.8 fL (80.0-100.0) 01/22/25 15:15 MCH 33.7 pg (25.0-34.0) 01/22/25 15:15 MCHC 33.8 g/dL (32.0-36.0) 01/22/25 15:15 RDW Std Deviation 44.5 fL (36.4-46.3) 01/22/25 15:15 RDW Coeff of Yeimi 12.0 % (11.5-14.5) 01/22/25 15:15 Plt Count 264 K/uL (130-400) 01/22/25 15:15 MPV 8.7 fL (9.4-12.4) L 01/22/25 15:15 Immature Gran % (Auto) 0.4 % 01/22/25 15:15 Neut % (Auto) 64.8 % 01/22/25 15:15 Lymph % (Auto) 21.8 % 01/22/25 15:15 [place] % (Auto) 10.8 % 01/22/25 15:15 Eos % (Auto) 1.7 % 01/22/25 15:15 Baso % (Auto) 0.5 % 01/22/25 15:15 Neut # (Auto) 5.29 K/uL (1.40-6.50) 01/22/25 15:15 Lymph # (Auto) 1.78 K/uL (1.20-3.40) 01/22/25 15:15 [place] # (Auto) 0.88 K/uL (0.11-0.59) H 01/22/25 15:15 Eos # (Auto) 0.14 K/uL (0.00-0.50) 01/22/25 15:15 Baso # (Auto) 0.04 K/uL (0.00-0.20) 01/22/25 15:15 Immature Gran # (Auto) 0.03 K/uL (0.01-0.20) 01/22/25 15:15 Sodium 140 mmol/L (136-145) 01/22/25 15:15 Potassium 3.9 mmol/L (3.5-5.1) 01/22/25 15:15 Chloride 103 mmol/L (98-107) 01/22/25 15:15 Carbon Dioxide 30 mmol/L (21-32) 01/22/25 15:15 Anion Gap 7 (3-11) 01/22/25 15:15 BUN 14 mg/dl (6-23) 01/22/25 15:15 Creatinine 0.86 mg/dl (0.6-1.2) 01/22/25 15:15 Est Cr Clr Drug Dosing 59.8 ml/min 01/22/25 15:15 eGFR 71.73 01/22/25 15:15 BUN/Creatinine Ratio 16.3 (10-20) 01/22/25 15:15 Glucose 89 mg/dl (70-99(Fasting)) 01/22/25 15:15 POC Glucose 94 mg/dl (70-99) 01/22/25 15:31 Calcium 9.6 mg/dl (8.6-10.3) 01/22/25 15:15 Total Bilirubin 0.6 mg/dl (0.2-1.0) 01/22/25 15:15 AST 21 U/L (13-39) 01/22/25 15:15 ALT 21 U/L (7-52) 01/22/25 15:15 Alkaline Phosphatase 92 U/L (34-104) 01/22/25 15:15 Total Protein 7.1 gm/dl (6.0-8.3) 01/22/25 15:15 Albumin 3.8 gm/dl (3.4-5.0) 01/22/25 15:15 Globulin 3.3 gm/dl (2.5-4.0) 01/22/25 15:15 Albumin/Globulin Ratio 1.2 (0.9-2) 01/22/25 15:15 TSH 3.551 uIu/ml (0.300-4.500) 01/22/25 15:15 Urine Color Yellow 01/22/25 15:07 Urine Appearance Cloudy (Clear) A 01/22/25 15:07 Urine pH 7.5 (4.5-7.5) 01/22/25 15:07 Ur Specific [place] 1.020 (1.000-1.030) 01/22/25 15:07 Urine Protein Trace (Negative) H 01/22/25 15:07 Urine Glucose (UA) Negative (Negative) 01/22/25 15:07 Urine Ketones Trace (Negative) H 01/22/25 15:07 Urine Blood Negative (Negative) 01/22/25 15:07 Urine Nitrite Negative (Negative) 01/22/25 15:07 Urine Bilirubin Negative (Negative) 01/22/25 15:07 Urine Urobilinogen Negative (Negative) 01/22/25 15:07 Ur Leukocyte Esterase 1+ (Negative) H 01/22/25 15:07 Urine WBC (Auto) 0-5 /hpf (0-5) 01/22/25 15:07 Urine RBC (Auto) 6-10 /hpf (0-2) H 01/22/25 15:07 U Hyaline Cast (Auto) 0-2 /lpf (0-2) 01/22/25 15:07 U Epithel Cells (Auto) 0-2 /hpf (0-2) 01/22/25 15:07 Urine Bacteria (Auto) 4+ (None Seen) H 01/22/25 15:07 Urine Comment 01/22/25 15:07 Impressions Chest X-Ray 01/22/25 15:08 XR chest 1V portable CLINICAL HISTORY: weakness COMPARISON STUDY: Chest radiograph October 19, 2024. Chest CT November 04, 2024 FINDINGS: Lung volumes are diminished. Blunting of the left costophrenic angle is noted. This may be due to epicardial fat pad or a trace left pleural effusion. There is pulmonary vascular congestion without overt pulmonary edema. Linear left midlung density favors atelectasis. There is no consolidation to suggest pneumonia. There is no pneumothorax. IMPRESSION: 1. Pulmonary vascular congestion. Possible trace left pleural effusion. 2. Linear left midlung density suggestive of atelectasis. 3. Low lung volumes. ACT 112: Negative or not required by law. Electronically signed by: Elio Ku M.D. 01/22/2025 3:49 PM Code Status & VTE Plan Code Status DNR/DNI VTE Prophylaxis Plan VTE Prophylaxis will be ordered: Yes PG Care Time/CCT Total # of Minutes Spent Total Time Spent with Patient: Total time spent is greater than 50% in coordination of care (as documented) at patient's floor/unit and/or counseling patient: Coding Level of Care Code 68243 INT INP/OBS CARE MIN Diagnoses UTI (urinary tract infection) N39.0 Dementia with behavioral disturbance F03.918 Confusion R41.0 Multiple subsegmental pulmonary emboli without acute cor pulmonale I26.99 Pulmonary embolism type: unspecified Chronicity: acute Acute cor pulmonale presence: unspecified Right leg DVT I82.401 History of subarachnoid hemorrhage Z86.79 (4) Pulmonary embolism Pulmonary embolism type: unspecified Chronicity: acute Acute cor pulmonale presence: unspecified Qualified Code(s): I26.99 - Other pulmonary embolism without acute cor pulmonale
--- NOTE | 2025-01-22 18:14 | Electrocardiogram Report ---
Test Reason : Blood Pressure : */* mmHG Vent. Rate : 80 BPM Atrial Rate : 80 BPM P-R Int : 190 ms QRS Dur : 72 ms QT Int : 382 ms P-R-T Axes : 48 -6 48 degrees QTcB Int : 440 ms Normal sinus rhythm Possible Left atrial enlargement Minimal voltage criteria for LVH, may be normal variant Borderline ECG When compared with ECG of 04-Nov-2024 22:51, RSR' pattern in V1 is no longer Present Confirmed by Femi Pickard ([id number]) on 01/22/2025 6:14:33 PM Referred By: Confirmed By: Femi Pickard
[2025-01-22] MEDS ORDERED: ONDANSETRON INJ 2 MG/ML 2 ML VIAL IV PRN (18:43)
[2025-01-22] MEDS ORDERED: ACETAMINOPHEN 325 MG TAB PO PRN (18:43)
[2025-01-22] MEDS ORDERED: [UNRECOGNIZED DRUG - OTHER] TOP PRN (18:43)
[2025-01-22] MEDS ORDERED: NYSTATIN CR 15 GM TUBE EXT PRN (18:43)
[2025-01-22] MEDS ORDERED: CERAMIDES TOP PRN (18:43)
[2025-01-22] MEDS: NSS + 20MEQ KCL 20 MEQ/1,000 ML BAG IV SCH (20:17)
[2025-01-22] MEDS: APIXABAN 5 MG TABLET PO SCH (21:29)
[2025-01-22] MEDS: MEMANTINE HCL 10 MG TAB PO SCH (21:29)
[2025-01-23 07:49] LABS: Hematocrit (blood only) 46.2 % (37.0-47.0); Hemoglobin 15.9 g/dl (12.0-16.0); Immature Granulocytes # (auto) 0.04 K/uL (0.01-0.20); Immature Granulocytes % (auto) 0.4 %; Mean Corpuscular Hemoglobin 33.5 pg (25.0-34.0); Mean Corpuscular Volume 97.3 fL (80.0-100.0); Platelet Count 264 K/uL (130-400); RDW Standard Deviation 41.9 fL (36.4-46.3); Red Blood Count 4.75 M/uL (4.20-5.40); White Blood Count 10.70 K/ul (4.8-10.8)
[2025-01-23 08:14] LABS: Anion Gap 9.0 (3-11); Blood Urea Nitrogen 10.0 mg/dl (6-23); Calcium 8.9 mg/dl (8.6-10.3); Carbon Dioxide 26.0 mmol/L (21-32); Chloride 102.0 mmol/L (98-107); Creatinine Clr Calc Pharmacy 74.3 ml/min; Glucose 100.0 mg/dl (70-99(Fasting)); Magnesium 1.9 mg/dl (1.7-2.4); Potassium 4.1 mmol/L (3.5-5.1); Sodium 137.0 mmol/L (136-145)
[2025-01-23] MEDS: FAMOTIDINE 20 MG TAB PO SCH (09:13)
[2025-01-23] MEDS: CHOLECALCIFEROL 125 MCG (5,000 UNITS) TAB PO SCH (09:14)
--- NOTE | 2025-01-23 13:49 | Hospitalist Progress Note ---
Date of Service January 23, 2025 Assessment & Plan (1) UTI (urinary tract infection): (2) Dementia with behavioral disturbance: (3) Confusion: (4) Right leg DVT: Plan The patient is a 74-year-old female with a past medical history including B12 deficiency, dementia with behavioral disturbance, urinary tract infection, right lower extremity DVT and saddle pulmonary embolism on Eliquis, history of falls, and GERD. Her brought her into the emergency department 01/22 reporting h e was having increasing difficulty taking care of her. the patient is unable to answer questions due to her severe dementia. Workup in the emergency department was consistent with a urinary tract infection, for which she was started on ceftriaxone 2 g IV and was given 1 L normal saline. #UTI Urinalysis +, UC w/ pin-point growth reincubating CBC w/o leukocytosis. BMP stable Continue Rocephin IV daily until cultures return - adjust as necessary s/p IVF #Dementia w/ behavior disturbance Continue memantine PT/OT consulted to determine if rehab is required prior to discharging home. #hx of RLE DVT & saddle PE - continue Eliquis 5mg PO BID #GERD - continue famotidine CODE STATUS: DNR/DNI DVT prophylaxis: Eliquis Admission and Anticipated Discharge Date Admission Date: January 22, 2025 Subjective Edie seen and examined this afternoon. Unable to provide any history but she was resting comfortably in bed after eating her lunch. Physical Exam Physical Exam: General: no acute distress; non-toxic appearing; well-nourished; cooperative HEENT: normocephalic, atraumatic; no scleral icterus; PERRLA w/ EOMs intact; vision and hearing grossly intact Neck: trachea midline Skin: warm, dry without signs of tenting; no cyanosis; no rashes, bruising, lesions, or erythema noted Lungs: no acute respiratory distress; symmetrical chest wall expansion Neuro: non verbal Results & Data Results & Data Vital Signs (Past 12 Hours) Vital Signs Temp Pulse Resp BP Pulse Ox O2 Del Method 01/23/25 07:21 37.1 C 89 16 142/88 H 93 Room Air PG Care Time/CCT Total # of Minutes Spent Total Time Spent with Patient: Total time spent is greater than 50% in coordination of care (as documented) at patient's floor/unit and/or counseling patient: Coding Level of Care Code 40688 SUB INP/OBS CARE MIN Diagnoses UTI (urinary tract infection) N30.01 Hematuria presence: with hematuria Urinary tract infection type: acute cystitis Dementia with behavioral disturbance F03.918 Confusion R41.0 Right leg DVT I82.401 (1) UTI (urinary tract infection) Hematuria presence: with hematuria Urinary tract infection type: acute cystitis Qualified Code(s): N30.01 - Acute cystitis with hematuria
[2025-01-23] MEDS: cefTRIAXone SODIUM 2,000 MG/50 ML BAG IV SCH (16:51)
[2025-01-24 08:19] LABS: Hematocrit (blood only) 44.6 % (37.0-47.0); Hemoglobin 14.7 g/dl (12.0-16.0); Immature Granulocytes # (auto) 0.02 K/uL (0.01-0.20); Immature Granulocytes % (auto) 0.3 %; Mean Corpuscular Hemoglobin 32.4 pg (25.0-34.0); Mean Corpuscular Volume 98.2 fL (80.0-100.0); Platelet Count 231 K/uL (130-400); RDW Standard Deviation 43.5 fL (36.4-46.3); Red Blood Count 4.54 M/uL (4.20-5.40); White Blood Count 6.78 K/ul (4.8-10.8)
[2025-01-24 08:35] LABS: Anion Gap 8.0 (3-11); Blood Urea Nitrogen 18.0 mg/dl (6-23); Calcium 8.6 mg/dl (8.6-10.3); Carbon Dioxide 25.0 mmol/L (21-32); Chloride 106.0 mmol/L (98-107); Creatinine Clr Calc Pharmacy 60.3 ml/min; Glucose 93.0 mg/dl (70-99(Fasting)); Magnesium 2.0 mg/dl (1.7-2.4); Potassium 4.0 mmol/L (3.5-5.1); Sodium 139.0 mmol/L (136-145)
[2025-01-24] MEDS: AMOXICILLIN 500 MG CAP PO SCH (12:30)
--- NOTE | 2025-01-24 15:55 | Hospitalist Progress Note ---
Date of Service January 24, 2025 Assessment & Plan (1) UTI (urinary tract infection): (2) Dementia with behavioral disturbance: (3) Confusion: (4) Right leg DVT: Plan The patient is a 74-year-old female with a past medical history including B12 deficiency, dementia with behavioral disturbance, urinary tract infection, right lower extremity DVT and saddle pulmonary embolism on Eliquis, history of falls, and GERD. Her brought her into the emergency department 01/22 reporting he was having increasing difficulty taking care of her. the patient is unable to answer questions due to her severe dementia. Workup in the emergency department was consistent with a urinary tract infection, for which she was started on ceftriaxone 2 g IV and was given 1 L normal saline. #UTI Urinalysis +, UC w/ aerococcus. - discussed w/ pharmacy that amoxicillin 500mg PO BID x 5 days is sufficient for treatment. CBC w/o leukocytosis. BMP stable s/p IVF #Dementia w/ behavior disturbance Continue memantine PT/OT --> recommended rehab. Discussed w/ CM 01/24. #hx of RLE DVT & saddle PE - continue Eliquis 5mg PO BID #GERD - continue famotidine CODE STATUS: DNR/DNI DVT prophylaxis: Eliquis Patient medically stable for discharge pending insurance approval for rehab. updated at bedside 01/24 Admission and Anticipated Discharge Date Admission Date: January 22, 2025 Subjective Edie seen and examined this morning. She was resting at time of encounter & did not answer any questions. at bedside who does report that she seems better today. He would like her to go to rehab to get stronger prior to returning home. Physical Exam Constitutional: WD/WN, vitals as above Eyes: PERRL, conjunctivae normal, anicteric sclerae Neck: normal visual inspection Respiratory: normal respiratory effort Psychiatric: pleasant, confused Results & Data Results & Data Vital Signs (Past 12 Hours) Vital Signs Temp Pulse Resp BP Pulse Ox O2 Del Method 01/24/25 15:11 36.8 C 85 16 127/81 92 Room Air 01/24/25 08:00 Room Air 01/24/25 07:20 36.6 C 77 18 136/81 94 Room Air PG Care Time/CCT Total # of Minutes Spent Total Time Spent with Patient: Total time spent is greater than 50% in coordination of care (as documented) at patient's floor/unit and/or counseling patient: Coding Level of Care Code 33573 SUB INP/OBS CARE MIN Diagnoses UTI (urinary tract infection) N30.01 Hematuria presence: with hematuria Urinary tract infection type: acute cystitis Dementia with behavioral disturbance F03.918 Confusion R41.0 Right leg DVT I82.401 (1) UTI (urinary tract infection) Hematuria presence: with hematuria Urinary tract infection type: acute cystitis Qualified Code(s): N30.01 - Acute cystitis with hematuria
[2025-01-24] MEDS: SENNA 8.6 MG TAB PO SCH (18:23)
[2025-01-25 07:40] VITALS: RESP 18
[2025-01-25 08:04] LABS: Hematocrit (blood only) 43.4 % (37.0-47.0); Hemoglobin 14.5 g/dl (12.0-16.0); Immature Granulocytes # (auto) 0.02 K/uL (0.01-0.20); Immature Granulocytes % (auto) 0.3 %; Mean Corpuscular Hemoglobin 33.0 pg (25.0-34.0); Mean Corpuscular Volume 98.9 fL (80.0-100.0); Platelet Count 263 K/uL (130-400); RDW Standard Deviation 43.5 fL (36.4-46.3); Red Blood Count 4.39 M/uL (4.20-5.40); White Blood Count 6.58 K/ul (4.8-10.8)
[2025-01-25 08:23] LABS: Anion Gap 7.0 (3-11); Blood Urea Nitrogen 21.0 mg/dl (6-23); Calcium 9.1 mg/dl (8.6-10.3); Carbon Dioxide 26.0 mmol/L (21-32); Chloride 105.0 mmol/L (98-107); Creatinine Clr Calc Pharmacy 62.5 ml/min; Glucose 95.0 mg/dl (70-99(Fasting)); Magnesium 2.0 mg/dl (1.7-2.4); Potassium 4.1 mmol/L (3.5-5.1); Sodium 138.0 mmol/L (136-145)
--- NOTE | 2025-01-25 14:01 | Hospitalist Progress Note ---
Date of Service January 25, 2025 Assessment & Plan (1) UTI (urinary tract infection): (2) Dementia with behavioral disturbance: (3) Confusion: (4) Right leg DVT: Plan The patient is a 74-year-old female with a past medical history including B12 deficiency, dementia with behavioral disturbance, urinary tract infection, right lower extremity DVT and saddle pulmonary embolism on Eliquis, history of falls, and GERD. Her brought her into the emergency department 01/22 reporting he was having increasing difficulty taking care of her. the patient is unable to answer questions due to her severe dementia. Workup in the emergency department was consistent with a urinary tract infection, for which she was started on ceftriaxone 2 g IV and was given 1 L normal saline. #UTI Urinalysis +, UC w/ aerococcus. - discussed w/ pharmacy that amoxicillin 500mg PO BID x 5 days is sufficient for treatment. CBC w/o leukocytosis. BMP stable s/p IVF #Dementia w/ behavior disturbance Continue memantine PT/OT --> recommended rehab. #hx of RLE DVT & saddle PE - continue Eliquis 5mg PO BID #GERD - continue famotidine CODE STATUS: DNR/DNI DVT prophylaxis: Eliquis updated at bedside 01/25 Antic[facility]ate discharge to [facility] 01/26. Admission and Anticipated Discharge Date Admission Date: January 22, 2025 Subjective Edie seen and examined this morning w/ at bedside. Edie denied any complaints. reports he still thinks that she is improving. Physical Exam Physical Exam: General: no acute distress; non-toxic appearing; well-nourished; cooperative HEENT: normocephalic, atraumatic; no scleral icterus; PERRLA w/ EOMs intact; vision and hearing grossly intact Neck: trachea midline Skin: warm, dry without signs of tenting; no cyanosis; no rashes, bruising, lesions, or erythema noted Lungs: no acute respiratory distress; symmetrical chest wall expansion Neuro: non verbal Results & Data Results & Data Vital Signs (Past 12 Hours) Vital Signs Temp Pulse Resp BP Pulse Ox O2 Del Method 01/25/25 07:36 36.8 C 68 18 122/78 94 Room Air PG Care Time/CCT Total # of Minutes Spent Total Time Spent with Patient: Total time spent is greater than 50% in coordination of care (as documented) at patient's floor/unit and/or counseling patient: Coding Level of Care Code 46420 SUB INP/OBS CARE MIN Diagnoses UTI (urinary tract infection) N30.01 Hematuria presence: with hematuria Urinary tract infection type: acute cystitis Dementia with behavioral disturbance F03.918 Confusion R41.0 Right leg DVT I82.401 (1) UTI (urinary tract infection) Hematuria presence: with hematuria Urinary tract infection type: acute cystitis Qualified Code(s): N30.01 - Acute cystitis with hematuria
[2025-01-25 14:10] VITALS: O2SAT 95
[2025-01-26 07:52] VITALS: BP 139/85; PULSE 66; TEMP 98.2
--- NOTE | 2025-01-26 08:30 | Discharge Summary ---
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 Her brought her into the emergency department 01/22 reporting he was having increasing difficulty taking care of her. the patient is unable to answer questions due to her severe dementia. Workup in the emergency department was consistent with a urinary tract infection, for which she was started on ceftriaxone 2 g IV and was given 1 L normal saline. #UTI/metabolic encephalopathy due to UTI. Urinalysis +, UC w/ aerococcus. - discussed w/ pharmacy that amoxicillin 500mg PO BID x 5 days is sufficient for treatment. (through 01/27/25) CBC w/o leukocytosis. BMP stable s/p IVF #Dementia w/ behavior disturbance Continue memantine PT/OT --> recommended rehab. #hx of RLE DVT & subacute saddle PE - continue Eliquis 5mg PO BID #GERD - continue famotidine Updated at bedside 01/26. Discharged to [facility]. 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 Her brought her into the emergency department today reporting he was having increasing difficulty taking care of her. the patient is unable to answer questions due to her severe dementia. Workup in the emergency department was consistent with a urinary tract infection, for which she was started on ceftriaxone 2 g IV and was given 1 L normal saline. Discharge Exam General: no acute distress; non-toxic appearing; well-nourished; cooperative HEENT: normocephalic, atraumatic; no scleral icterus; PERRLA w/ EOMs intact; vision and hearing grossly intact Neck: trachea midline Skin: warm, dry without signs of tenting; no cyanosis; no rashes, bruising, lesions, or erythema noted Lungs: no acute respiratory distress; symmetrical chest wall expansion Neuro: non verbal Discharge Plan Discharge Items Patient Disposition: Transfer [facility] Reason For Visit: UTI, MENTAL STATUS CHANGE, DEMENTIA Discharge Diagnosis: UTI Condition on Discharge: Good Activity: Resume your previous activity Non-emergency contact: Primary Care Provider Call non-emergency contact if: you have any medication questions, your symptoms worsen and you have a fever Follow-up/Referrals: Vaughn Jefferson DO [Primary Care Provider] - Diet: Regular Addtl Attending Provider Instructions: Mrs. Bland, You were recently hospitalized for ongoing weakness at home & were found to have a urinary tract infection. You were treated with antibiotics and had improvement of your symptoms. Please see recommendations below regarding your discharge. Please take Amoxicillin twice daily through 01/27/2025. Your next dose will be this evening, 01/26. You may take with food to avoid GI upset. Your outpatient medications may be resumed unless stated otherwise below. You are going to rehab to get stronger prior to returning home. Please follow up with your PCP within 1-2 weeks of discharge. If you develop any chest pain, shortness of breath, or fever please report back to the ED for further care. Best of luck! Ana Khanna PA-C Pending Studies at Discharge: No Stand-Alone Forms: My [facility] Skilled Items Patient informed of condition?: Yes DNR: Yes Discharge Level of Care: Acute rehab Communicable Disease: No Discharge Prognosis: Improving Lines: None Urinary Catheter: No Medications and DC Order Prescriptions: New amoxicillin 500 mg Capsule 500 mg PO BID Qty: 3 0RF Continued acetaminophen 325 mg tablet 650 mg PO Q6H PRN (Reason: fever or pain) Patient Comments: CONFIRMED W/ PT'S AND ON [facility] MED LIST 11/08/24 apixaban 5 mg tablet 5 mg PO BID Patient Comments: CONFIRMED W/ PT'S AND [facility] MED LIST 11/08/24 famotidine 20 mg tablet 20 mg PO DAILY Qty: 90 3RF memantine 10 mg tablet 10 mg PO BID 90 Days Qty: 180 3RF cholecalciferol (vitamin D3) 125 mcg (5,000 unit) capsule 125 mcg PO DAILY nystatin 100,000 unit/gram cream 1 applic topical BID PRN (Reason: itching) Qty: 30 4RF ceramides 1,3,6-II [CeraVe] Cream 1 applic TOPICAL DIRECTED PRN (Reason: Itching) sennosides [Senokot] 8.6 mg tablet 8.6 mg PO Q OTHER DAY Discharge Orders: Discharge Order (Routine); Ordered 01/26/25 Ordered By: Ana Khanna Admission Data Admit Date/Time: 01/22/25 16:29 Attending Provider: Matt Barlow Admit Provider: Surinder Mary Primary Care Provider: Vaughn Jefferson Other Providers: Surinder aMry; Nina Shafer [facility] Other Interventions: Discharge Summary Assessment (RN) Last Done: 01/26/25 10:04 Hospital Stay Data Consultations 01/22/25 16:19 ED Decision to Admit Stat Pending Results Patient Have Any Pending Studies at Discharge: No Discharge Instructions Given to Patient (Per Discharging Provider) Mrs. Bland, You were recently hospitalized for ongoing weakness at home & were found to have a urinary tract infection. You were treated with antibiotics and had improvement of your symptoms. Please see recommendations below regarding your discharge. Please take Amoxicillin twice daily through 01/27/2025. Your next dose will be this evening, 01/26. You may take with food to avoid GI upset. Your outpatient medications may be resumed unless stated otherwise below. You are going to rehab to get stronger prior to returning home. Please follow up with your PCP within 1-2 weeks of discharge. If you develop any chest pain, shortness of breath, or fever please report back to the ED for further care. Best of luck! Ana Khanna PA-C Total Time Total Time Spent Total Time Spent (In Minutes): 40 Total Time Includes: Examination of the Patient, Discharge Planning and Medication Reconciliation Coding Level of Care Code 15748 INP/OBS DISCH >30 MIN Diagnoses UTI (urinary tract infection) N30.01 Hematuria presence: with hematuria Urinary tract infection type: acute cystitis Dementia with behavioral disturbance F03.918 Confusion R41.0 Right leg DVT I82.401
== END 2025-01-26 10:30 | DRG 689 ==
LOC: ED 14:47 → EDINP 16:29 → INTOOBSV 16:29 → SUATTDRO 16:29 → EDINP 18:44 → 3E 21:14

== ENCOUNTER 2025-02-08 09:33 | Observation (INO) ==
--- NOTE | 2025-02-08 09:43 | Emergency Department Note ---
Impression & Plan Dementia with behavioral disturbance, UTI (urinary tract infection), Fall, Acute leg pain ED Provider Note NAME: MAYNOR OLIVARES AGE: 74 SEX: F : 1950 ARRIVES VIA: Ambulance INFORMANT: Patient ED PROVIDER(S): Amaury Meier DO CHIEF COMPLAINT: Fall HPI: Patient is a 74-year-old female with a past medical history of UTI, B12, confusion and dementia who presents the ER following a fall while getting out of the car yesterday. There is report of no loss of consciousness. Since then she has been unable to walk. She is complaining of right hip and femur pain. Denies all other complaints otherwise. History is limited due to dementia. ADDITIONAL HISTORY OBTAINED: Per HPI Chronic Medical/Social Conditions Affecting Care: Per HPI PAST MEDICAL HISTORY:See Below PAST SURGICAL HISTORY:See Below FAMILY HISTORY:See Below SOCIAL HISTORY:See Below HOME MEDICATIONS:See Below ALLERGIES:See Below VITALS:See Below PHYSICAL EXAMINATION: GENERAL: alert, well appearing, well nourished, no distress, non-toxic HEAD: normal cephalic, atraumatic EYE EXAM: normal conjunctiva, PERRL and EOM's grossly intact OROPHARYNX: no exudate, no erythema, lips, buccal mucosa, and tongue normal and mucous membranes are moist EARS: TMs clear b/l NECK: supple, no nuchal rigidity, no adenopathy, non-tender CHEST: stable to compression anteriorly and posteriorly LUNGS: clear to auscultation. Normal chest wall mechanics HEART: no murmurs, S1 normal and S2 normal ABDOMEN: abdomen soft, non-tender, normo-active bowel sounds, no masses, no rebound or guarding. PELVIS: stable to compression anteriorly and posteriorly BACK: Back is symmetrical on inspection and there is no deformity, no midline tenderness, no CVA tenderness. UPPER EXTREMITIES: full active and passive range of motion of all joints without tenderness to palpation LOWER EXTREMITIES: Abrasions over bilateral knees. Flexion extension of the left hip knee ankle is intact with no tenderness throughout the femur or tib- fib. Pain on palpation of the right proximal femur as well as the knee. No tenderness throughout the tib-fib ankle or foot on the right. DPs 2 out of 4 bilaterally. NEURO EXAM: Oriented to person but not place or time moving upper extremities without difficulty MEDICAL DECISION MAKING: Patient is a 74-year-old female demented who presents to the ER following a fall. is present at bedside and gives the entirety of the history. He notes that he was helping getting her out of the car. She fell to her knees. She did not hit her head. No head or neck pain. Labs showed no significant leukocytosis or anemia. BMP normal LFTs bilirubin lipase is unremarkable. UA consistent with UTI. Patient was given [address] head and cervical spine was performed prior to the arrival of the and the team making it clear that she did not hit her head. X-rays of the hip pelvis femur and knee showed no acute fractures. Patient/ husbandwas updated bedside and discussed with the hospitalist for further evaluation management treatment. Consults/Care Managements Discussions: Per MDM Triage Nursing notes reviewed. Limited review of prior medical records performed Vital Signs: reviewed and remarkable for no significant abnormalities Differential diagnosis: Differential diagnoses include major intracranial, cervical, spinal, thoracic, abdominal, pelvic and neurologic injury. Fracture, contusion, sprain, strain, laceration, abrasions included as well. ER treatment provided: See below Diagnostics interpreted by me include EKG and cardiac monitoring as listed below: -Cardiac Monitoring: An order was placed for continuous cardiac monitoring. The monitor shows a rate of 70 with sinus rhythm. -ECG: none -Laboratory studies:Interpreted by me as stated above in MDM and shown below. Imaging studies: Xrays: As interpreted by me: X-ray of the right hip and pelvis show no acute fracture X-ray of the knee and femur show no fractures CTs show: CT head and cervical spine was negative Procedures:none Critical Care: None Past Med/Surg History Problem List (Updated 02/08/25 @ 13:46 by Amaury Meier DO) Acute leg pain (Acute) Fall (Acute) Acute encephalopathy due to infection Ambulatory dysfunction Confusion (Acute) UTI (urinary tract infection) (Acute) B12 deficiency Dementia with behavioral disturbance (Acute) COVID-19 (Acute) Back pain (Acute) Urinary urgency Medical History Right leg DVT Acute UTI Advanced dementia Pulmonary embolism Urinary incontinence History of subarachnoid hemorrhage Hip fracture, right (12/05/23) displaced right intertrochanteric femur fracture from a fall off a ladder-had orthopedic surgery at [facility] in [place] Dementia in other diseases classified elsewhere, unspecified severity, without behavioral disturbance, psychotic disturbance, mood disturbance, and anxiety Dyslipidemia Subdural hemorrhage Traumatic subarachnoid hemorrhage Hx of fracture of right hip (~11/2023) Intramedullary nail fixation right hip History of colon polyps Poor historian pt had difficulty remembering some of her health status/issues when asked 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 Surgical History History of tooth extraction Hx of colonoscopy with polypectomy 04/2021 repeat 5 yrs S/P tonsillectomy and adenoids Family History Father Prostate cancer Dementia Hypertension Mother Diabetes Heart disease congenital heart disease, h/o CHF Hypertension Grandmother Breast cancer Grandmother (Maternal) Myocardial infarction Other No family history of adverse response to anesthesia Denies family history of Ovarian cancer Lung cancer Colorectal cancer Social History Smoking Status: Never smoker Second Hand Exposure: No; Do You Dip or Chew Tobacco: No; Hx Substance Use: No (unknown) Preferred Language: Guinean Communication Ability: Unable Communication Ability Comment: pt has history of dementia and struggles to follow commands but is able Visual Impairment: Limited Hearing Ability: Normal Neonatal Social Worker Required: No Beliefs That Will Affect Care: None marital status: Current Living Situation: Spouse current occupational status: retired 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 How many Children do You have: 2 Feels Safe at Home: Yes Childhood Exposure to Second-Hand Smoke: Yes Diet: regular caffeine: Yes (very seldom) during the past year weight has: increased > 10 lbs Dental Care, Regularly: Yes Physical Activity Frequency: Does not Exercise Seatbelt Use: always Sunscreen Use: No Assistive Devices: Cane and Walker Allergies Allergies Allergy/AdvReac Type Severity Reaction Status Date / Time No Known Allergies Allergy Verified 02/08/25 11:56 Home Meds Home Medications Medication Instructions Recorded Confirmed cholecalciferol (vitamin D3) 125 125 mcg PO DAILY 05/25/24 02/08/25 mcg (5,000 unit) capsule acetaminophen 325 mg tablet 650 mg PO Q6H PRN fever or pain 11/08/24 02/08/25 apixaban 5 mg tablet 5 mg PO BID 11/08/24 02/08/25 ceramides 1,3,6-II (CeraVe topical 1 applic topical DIRECTED PRN 01/22/25 02/08/25 cream) Itching sennosides 8.6 mg tablet (Senokot) 8.6 mg PO Q OTHER DAY 01/22/25 02/08/25 Previous Rx's Medication Instructions Recorded famotidine 20 mg tablet 20 mg PO DAILY #90 tabs 12/04/24 memantine 10 mg tablet 10 mg PO BID 90 days #180 tabs 12/24/24 nystatin 100,000 unit/gram topical 1 applic topical BID PRN itching 01/09/25 cream #30 grams Results & Data (ED) Vital Signs Vital Signs - 24 hr 02/08/25 09:26 02/08/25 09:26 02/08/25 09:27 Temperature 36.9 C Temperature Source Oral Pulse Rate 74 Pulse Rate [Apical] 71 Pulse Rate from SpO2 Sensor Respiratory Rate 18 18 Blood Pressure 144/87 H Blood Pressure [Left Arm] Blood Pressure Mean 106 Blood Pressure Mean [Left Arm] Pulse Oximetry 95 Oxygen Delivery Method Sepsis Recent Fever Within 48 Hours No Sepsis New/Unexplained Change in Mental Status N/A Sepsis Action Taken by Nursing No Action Required 02/08/25 09:40 02/08/25 09:41 02/08/25 09:45 Temperature Temperature Source Pulse Rate 81 75 Pulse Rate [Apical] Pulse Rate from SpO2 Sensor 73 Respiratory Rate 15 Blood Pressure Blood Pressure [Left Arm] Blood Pressure Mean Blood Pressure Mean [Left Arm] Pulse Oximetry 98 98 Oxygen Delivery Method Sepsis Recent Fever Within 48 Hours Sepsis New/Unexplained Change in Mental Status Sepsis Action Taken by Nursing 02/08/25 09:57 02/08/25 10:00 02/08/25 10:00 Temperature Temperature Source Pulse Rate 70 Pulse Rate [Apical] Pulse Rate from SpO2 Sensor 70 Respiratory Rate 15 Blood Pressure 143/71 H 143/71 H Blood Pressure [Left Arm] Blood Pressure Mean 98 98 Blood Pressure Mean [Left Arm] Pulse Oximetry 94 Oxygen Delivery Method Sepsis Recent Fever Within 48 Hours Sepsis New/Unexplained Change in Mental Status Sepsis Action Taken by Nursing 02/08/25 10:00 02/08/25 10:03 02/08/25 10:27 Temperature Temperature Source Pulse Rate 70 Pulse Rate [Apical] 70 Pulse Rate from SpO2 Sensor 72 Respiratory Rate 26 H 16 Blood Pressure 143/71 H Blood Pressure [Left Arm] 143/71 H Blood Pressure Mean 98 Blood Pressure Mean [Left Arm] 95 Pulse Oximetry 95 98 Oxygen Delivery Method Room Air Sepsis Recent Fever Within 48 Hours Sepsis New/Unexplained Change in Mental Status Sepsis Action Taken by Nursing 02/08/25 10:42 02/08/25 10:48 02/08/25 11:00 Temperature Temperature Source Pulse Rate 72 73 Pulse Rate [Apical] 70 Pulse Rate from SpO2 Sensor 73 74 Respiratory Rate 16 17 16 Blood Pressure Blood Pressure [Left Arm] 141/80 H Blood Pressure Mean Blood Pressure Mean [Left Arm] 100 Pulse Oximetry 97 98 96 Oxygen Delivery Method Room Air Sepsis Recent Fever Within 48 Hours Sepsis New/Unexplained Change in Mental Status Sepsis Action Taken by Nursing 02/08/25 11:00 02/08/25 11:06 02/08/25 11:18 Temperature Temperature Source Pulse Rate 72 66 Pulse Rate [Apical] Pulse Rate from SpO2 Sensor 71 66 Respiratory Rate 15 19 Blood Pressure 141/80 H Blood Pressure [Left Arm] Blood Pressure Mean 90 Blood Pressure Mean [Left Arm] Pulse Oximetry 97 95 Oxygen Delivery Method Sepsis Recent Fever Within 48 Hours Sepsis New/Unexplained Change in Mental Status Sepsis Action Taken by Nursing 02/08/25 11:21 02/08/25 11:33 02/08/25 12:00 Temperature Temperature Source Pulse Rate 70 67 Pulse Rate [Apical] Pulse Rate from SpO2 Sensor 69 68 Respiratory Rate 22 17 Blood Pressure 135/85 Blood Pressure [Left Arm] Blood Pressure Mean 102 Blood Pressure Mean [Left Arm] Pulse Oximetry 97 97 Oxygen Delivery Method Sepsis Recent Fever Within 48 Hours Sepsis New/Unexplained Change in Mental Status Sepsis Action Taken by Nursing 02/08/25 12:00 02/08/25 12:03 02/08/25 12:12 Temperature Temperature Source Pulse Rate 77 81 Pulse Rate [Apical] Pulse Rate from SpO2 Sensor 77 81 Respiratory Rate 14 14 Blood Pressure 135/85 Blood Pressure [Left Arm] Blood Pressure Mean 102 Blood Pressure Mean [Left Arm] Pulse Oximetry 93 92 Oxygen Delivery Method Sepsis Recent Fever Within 48 Hours Sepsis New/Unexplained Change in Mental Status Sepsis Action Taken by Nursing 02/08/25 12:24 02/08/25 12:33 02/08/25 12:42 Temperature Temperature Source Pulse Rate 73 71 68 Pulse Rate [Apical] Pulse Rate from SpO2 Sensor 71 69 67 Respiratory Rate 19 12 13 Blood Pressure Blood Pressure [Left Arm] Blood Pressure Mean Blood Pressure Mean [Left Arm] Pulse Oximetry 98 100 98 Oxygen Delivery Method Sepsis Recent Fever Within 48 Hours Sepsis New/Unexplained Change in Mental Status Sepsis Action Taken by Nursing 02/08/25 12:52 02/08/25 12:54 02/08/25 13:00 Temperature Temperature Source Pulse Rate 71 Pulse Rate [Apical] 70 63 Pulse Rate from SpO2 Sensor 70 Respiratory Rate 18 21 16 Blood Pressure Blood Pressure [Left Arm] 135/85 143/83 H Blood Pressure Mean Blood Pressure Mean [Left Arm] 101 103 Pulse Oximetry 97 99 95 Oxygen Delivery Method Room Air Sepsis Recent Fever Within 48 Hours Sepsis New/Unexplained Change in Mental Status Sepsis Action Taken by Nursing Laboratory Data 02/08/25 09:46 02/08/25 09:46 Lab Results 02/08/25 02/08/25 02/08/25 Range/Units 09:46 11:00 12:30 WBC 9.31 (4.8-10.8) K/ul RBC 4.62 (4.20-5.40) M/uL Hgb 15.1 (12.0-16.0) g/dl Hct 44.9 (37.0-47.0) % MCV 97.2 (80.0-100.0) fL MCH 32.7 (25.0-34.0) pg MCHC 33.6 (32.0-36.0) g/dL RDW Std Deviation 43.1 (36.4-46.3) fL RDW Coeff of Yeimi 12.0 (11.5-14.5) % Plt Count 250 (130-400) K/uL MPV 9.2 L (9.4-12.4) fL Immature Gran % (Auto) 0.3 % Neut % (Auto) 64.5 % Lymph % (Auto) 23.4 % Gregory % (Auto) 9.9 % Eos % (Auto) 1.7 % Baso % (Auto) 0.2 % Neut # (Auto) 6.00 (1.40-6.50) K/uL Lymph # (Auto) 2.18 (1.20-3.40) K/uL Gregory # (Auto) 0.92 H (0.11-0.59) K/uL Eos # (Auto) 0.16 (0.00-0.50) K/uL Baso # (Auto) 0.02 (0.00-0.20) K/uL Immature Gran # (Auto) 0.03 (0.01-0.20) K/uL Sodium 139 (136-145) mmol/L Potassium 3.7 (3.5-5.1) mmol/L Chloride 102 (98-107) mmol/L Carbon Dioxide 29 (21-32) mmol/L Anion Gap 8 (3-11) BUN 13 (6-23) mg/dl Creatinine 0.80 (0.6-1.2) mg/dl Est Cr Clr Drug Dosing 69.1 ml/min eGFR 78.24 BUN/Creatinine Ratio 16.3 (10-20) Glucose 102 H (70-99(Fasting)) mg/dl Calcium 9.2 (8.6-10.3) mg/dl Total Bilirubin 0.7 (0.2-1.0) mg/dl AST 24 (13-39) U/L ALT 28 (7-52) U/L Alkaline Phosphatase 95 (34-104) U/L Total Protein 6.8 (6.0-8.3) gm/dl Albumin 3.6 (3.4-5.0) gm/dl Globulin 3.2 (2.5-4.0) gm/dl Albumin/Globulin Ratio 1.1 (0.9-2) Lipase 12 (11-82) U/L Vitamin B12 216 (180-914) pg/ml Urine Color Yellow Urine Appearance Turbid A (Clear) Urine pH >= 9.0 H (4.5-7.5) Ur Specific [place] 1.013 (1.000-1.030) Urine Protein Negative (Negative) Urine Glucose (UA) Negative (Negative) Urine Ketones Negative (Negative) Urine Blood Trace H (Negative) Urine Nitrite Negative (Negative) Urine Bilirubin Negative (Negative) Urine Urobilinogen Negative (Negative) Ur Leukocyte Esterase 3+ H (Negative) Urine WBC (Auto) >50 H (0-5) /hpf Urine RBC (Auto) 3-5 H (0-2) /hpf U Hyaline Cast (Auto) 0-2 (0-2) /lpf U Epithel Cells (Auto) 0-2 (0-2) /hpf Urine Bacteria (Auto) 3+ H (None Seen) Urine Comment Administered Medications Discontinued Medications Ceftriaxone Sodium (Rocephin) 2,000 mg in 50 mls @ 100 mls/hr IV NOW STA Stop: 02/08/25 12:33 Last Admin: 02/08/25 12:47 Dose: 100 mls/hr Documented By: ASHLEE Imaging Data Radiologist's Impression: Cervical Spine CT 02/08/25 09:40 CT cervical spine wo con CT DOSE: 987 CLINICAL HISTORY: fall. COMPARISON: 11/04/2024 TECHNIQUE: Multiple axial CT images of the cervical spine were obtained without contrast. A dose lowering technique was utilized adhering to the principles of ALARA. FINDINGS: There is moderate lower cervical degenerative disc disease. There is stable mild grade 1 anterolisthesis of C5 on C6 and C7 on T1. No cervical spine fracture seen. IMPRESSION: No cervical spine fracture seen. ACT 112: Negative or not required by law. The above report was generated using voice recognition software. It may contain grammatical, syntax or spelling errors. Electronically signed by: Darvin Sequeira M.D. 02/08/2025 10:35 AM Femur X-Ray 02/08/25 09:40 XR femur RT 2V routine, XR hip RT 2V w pelvis, XR knee RT 3V CLINICAL HISTORY: r knee COMPARISON: 02/26/2024 FINDINGS: Right femoral gamma nail shows no hardware complication. Prior proximal femur fracture appears healed. No acute fracture or dislocation seen at the right hip, right femur, or right knee. There are mild degenerative changes at the right hip and right knee. There are minimal degenerative changes at the left hip. No fracture seen at the pelvis or left hip. SI joints are unremarkable. There are lower lumbar degenerative changes. IMPRESSION: No acute findings seen. ACT 112: Negative or not required by law. Electronically signed by: Darvin Sequeira M.D. 02/08/2025 11:[address] 02/08/25 09:40 CT SCAN OF THE BRAIN WITHOUT IV CONTRAST CLINICAL HISTORY: Fall. COMPARISON STUDY: MRI of the brain January 27, 2022. Head CT November 04, 2024. TECHNIQUE: Unenhanced axial CT scan of the brain was performed from the vertex to the skull base. A dose lowering technique was utilized adhering to the principles of ALARA. CT DOSE: 986.56 mGy.cm FINDINGS: Brain parenchyma: No acute intracranial hemorrhage, midline shift or mass effect is present. Lee-white matter differentiation is preserved. There are no extra- axial fluid collections. There are no findings to suggest acute dural sinus thrombosis or acute territorial infarct. Ventricles, sulci, cisterns: Ventricular dilatation is unchanged. The basal cisterns are patent. Calvarium: There are no calvarial fractures. Sinuses and mastoids: The visualized paranasal sinuses are clear. The mastoid air cells are well pneumatized. Orbits: The bony orbits are grossly intact. IMPRESSION: 1. No acute intracranial findings. No change in appearance of the brain. 2. No calvarial fractures. ACT 112: Negative or not required by law. Electronically signed by: Elio Ku M.D. 02/08/2025 10:37 AM Hip/Pelvis X-Ray 02/08/25 09:40 XR femur RT 2V routine, XR hip RT 2V w pelvis, XR knee RT 3V CLINICAL HISTORY: r knee COMPARISON: 02/26/2024 FINDINGS: Right femoral gamma nail shows no hardware complication. Prior proximal femur fracture appears healed. No acute fracture or dislocation seen at the right hip, right femur, or right knee. There are mild degenerative changes at the right hip and right knee. There are minimal degenerative changes at the left hip. No fracture seen at the pelvis or left hip. SI joints are unremarkable. There are lower lumbar degenerative changes. IMPRESSION: No acute findings seen. ACT 112: Negative or not required by law. Electronically signed by: Darvin Sequeira M.D. 02/08/2025 11:11 AM Knee X-Ray 02/08/25 09:40 XR femur RT 2V routine, XR hip RT 2V w pelvis, XR knee RT 3V CLINICAL HISTORY: r knee COMPARISON: 02/26/2024 FINDINGS: Right femoral gamma nail shows no hardware complication. Prior proximal femur fracture appears healed. No acute fracture or dislocation seen at the right hip, right femur, or right knee. There are mild degenerative changes at the right hip and right knee. There are minimal degenerative changes at the left hip. No fracture seen at the pelvis or left hip. SI joints are unremarkable. There are lower lumbar degenerative changes. IMPRESSION: No acute findings seen. ACT 112: Negative or not required by law. Electronically signed by: Darvin Sequeira M.D. 02/08/2025 11:11 AM Discharge Plan Visit Data Chief Complaint: Fall Stated Complaint: FALL, UNABLE TO AMBULATE ED Provider: Amaury Meier Discharge Problem: Dementia with behavioral disturbance, UTI (urinary tract infection), Fall, Acute leg pain Condition: Fair Forms Stand Alone Forms: My [facility] Prescriptions Prescriptions: No Action acetaminophen 325 mg tablet 650 mg PO Q6H PRN (Reason: fever or pain) Patient Comments: CONFIRMED W/ PT'S AND ON [facility] MED LIST 11/08/24 apixaban 5 mg tablet 5 mg PO BID Patient Comments: CONFIRMED W/ PT'S AND [facility] MED LIST 11/08/24 famotidine 20 mg tablet 20 mg PO DAILY Qty: 90 3RF memantine 10 mg tablet 10 mg PO BID 90 Days Qty: 180 3RF cholecalciferol (vitamin D3) 125 mcg (5,000 unit) capsule 125 mcg PO DAILY nystatin 100,000 unit/gram cream 1 applic topical BID PRN (Reason: itching) Qty: 30 4RF ceramides 1,3,6-II [CeraVe] Cream 1 applic TOPICAL DIRECTED PRN (Reason: Itching) sennosides [Senokot] 8.6 mg tablet 8.6 mg PO Q OTHER DAY Referrals Referrals: Vaughn Jefferson DO [Primary Care Provider] - Discharge Problem: UTI (urinary tract infection) Qualifiers: Urinary tract infection type: acute cystitis Hematuria presence: without hematuria Qualified Code(s): N30.00 - Acute cystitis without hematuria Fall Qualifiers: Encounter type: initial encounter Qualified Code(s): W19.XXXA - Unspecified fall, initial encounter Acute leg pain Qualifiers: Laterality: unspecified laterality Qualified Code(s): M79.606 - Pain in leg, unspecified
[2025-02-08 10:13] LABS: Hematocrit (blood only) 44.9 % (37.0-47.0); Hemoglobin 15.1 g/dl (12.0-16.0); Immature Granulocytes # (auto) 0.03 K/uL (0.01-0.20); Immature Granulocytes % (auto) 0.3 %; Mean Corpuscular Hemoglobin 32.7 pg (25.0-34.0); Mean Corpuscular Volume 97.2 fL (80.0-100.0); Platelet Count 250 K/uL (130-400); RDW Standard Deviation 43.1 fL (36.4-46.3); Red Blood Count 4.62 M/uL (4.20-5.40); White Blood Count 9.31 K/ul (4.8-10.8)
[2025-02-08 10:30] LABS: Alanine Aminotransferase 28.0 U/L (7-52); Albumin Globulin Ratio 1.1 (0.9-2); Alkaline Phosphatase 95.0 U/L (34-104); Anion Gap 8.0 (3-11); Bilirubin,Total 0.7 mg/dl (0.2-1.0); Blood Urea Nitrogen 13.0 mg/dl (6-23); Calcium 9.2 mg/dl (8.6-10.3); Carbon Dioxide 29.0 mmol/L (21-32); Chloride 102.0 mmol/L (98-107); Creatinine Clr Calc Pharmacy 69.1 ml/min; Globulin 3.2 gm/dl (2.5-4.0); Glucose 102.0 mg/dl (70-99(Fasting)); Lipase 12.0 U/L (11-82); Potassium 3.7 mmol/L (3.5-5.1); Sodium 139.0 mmol/L (136-145); Total Protein 6.8 gm/dl (6.0-8.3)
--- NOTE | 2025-02-08 10:36 | CT Scan Report ---
CT cervical spine wo con CT DOSE: 987 CLINICAL HISTORY: fall. COMPARISON: 11/04/2024 TECHNIQUE: Multiple axial CT images of the cervical spine were obtained without contrast. A dose low ering technique was utilized adhering to the principles of ALARA. FINDINGS: There is moderate lower cervical degenerative disc disease. There is stable mild grade 1 an terolisthesis of C5 on C6 and C7 on T1. No cervical spine fracture seen. IMPRESSION: No cervical spine fracture seen. ACT 112: Negative or not required by law. The above report was generated using voice recognition software. It may contain grammatical, syntax o r spelling errors. Electronically signed by: Darvin Sequeira M.D. 02/08/2025 10:35 AM
--- NOTE | 2025-02-08 10:38 | CT Scan Report ---
CT SCAN OF THE BRAIN WITHOUT IV CONTRAST CLINICAL HISTORY: Fall. COMPARISON STUDY: MRI of the brain January 27, 2022. Head CT November 04, 2024. TECHNIQUE: Unenhanced axial CT scan of the brain was performed from the vertex to the skull base. A dose lowering technique was utilized adhering to the principles of ALARA. CT DOSE: 986.56 mGy.cm FINDINGS: Brain parenchyma: No acute intracranial hemorrhage, midline shift or mass effect is present. Lee-whi te matter differentiation is preserved. There are no extra-axial fluid collections. There are no find ings to suggest acute dural sinus thrombosis or acute territorial infarct. Ventricles, sulci, cisterns: Ventricular dilatation is unchanged. The basal cisterns are patent. Calvarium: There are no calvarial fractures. Sinuses and mastoids: The visualized paranasal sinuses are clear. The mastoid air cells are well pneu matized. Orbits: The bony orbits are grossly intact. IMPRESSION: 1. No acute intracranial findings. No change in appearance of the brain. 2. No calvarial fractures. ACT 112: Negative or not required by law. Electronically signed by: Elio Ku M.D. 02/08/2025 10:37 AM
--- NOTE | 2025-02-08 11:12 | XRay Report ---
XR femur RT 2V routine, XR hip RT 2V w pelvis, XR knee RT 3V CLINICAL HISTORY: r knee COMPARISON: 02/26/2024 FINDINGS: Right femoral gamma nail shows no hardware complication. Prior proximal femur fracture deion ears healed. No acute fracture or dislocation seen at the right hip, right femur, or right knee. Ther e are mild degenerative changes at the right hip and right knee. There are minimal degenerative tejeda es at the left hip. No fracture seen at the pelvis or left hip. SI joints are unremarkable. There are lower lumbar degenerative changes. IMPRESSION: No acute findings seen. ACT 112: Negative or not required by law. Electronically signed by: Darvin Sequeira M.D. 02/08/2025 11:11 AM
[2025-02-08 11:25] LABS: Appearance Urine Turbid (Clear); Bacteria Urine Automated 3+ (None Seen); Cast Urine Automated 0-2 /lpf (0-2); Epithelial Cell Urine Auto 0-2 /hpf (0-2); Glucose Urine UA Negative (Negative); WBC Urine Automated >50 /hpf (0-5)
--- NOTE | 2025-02-08 12:17 | History & Physical Report ---
Date of Service February 08, 2025 Assessment & Plan (1) UTI (urinary tract infection): (2) Advanced dementia: (3) Ambulatory dysfunction: Plan 74 y/o with advanced dementia, history of DVT/PE on apixaban, recently admitted 01/22-01/26 with aerococcus UTI and discharged to [facility] 01/26-02/04. Yesterday was weak and virtually fell out of car, caught by her . Since then has been very weak and unable to ambulate or get out of bed. ED evaluation notable for pyuria, normal WBC and unremarkable vital signs. ED imaging was negative for fractures or other acute issues # UTI -had 1L IVF -continue ceftriaxone 1 g IV daily pending urine culture # Ambulatory dysfunction -PT/OT # Acute metabolic encephalopathy # Advanced dementia -treat infection -continue memantine -delirium precautions # Hx DVT/PE -head CT neg for ICH -continue apixaban # Hx B12 deficiency -no level >2 years - will recheck knee abrasions - wound care AM BMP, CBC VTE ppx - anticoagulated Her acknowledges that her living will says DNR but he wants her to be full code. We did discuss expected outcomes of CPR in her situation. Fortunately she is very stable at this time. History of Present Illness Chief Complaint: Fall Primary Care Provider: Vaughn Jefferson, Edie is nonverbal so entire history is obtained from her at bedside and also review of previous hospital and primary care records. 74 y/o with advanced dementia, history of DVT/PE on apixaban who was hospitalized earlier this month for aerococcus UTI and discharged to [facility]. She was home a few days with her and doing well until yesterday afternoon, when she fell. They had been to an appointment and errands yesterday morning and she did fine. After arriving home he was helping her get from the car up to her walker and she buckled. He was able to lower her to sitting on the door sill, then she went down onto her knees sustaining abrasions and head went down onto walker seat. A neighbor and a mailman helped lift her up. Was able to get her to bed, but in AM she was unable to get up out of bed. Brought in to ED. He had not noticed any symptoms prior to yesterday afternoon. No F/C, cough/dyspnea, N/V/D, difficulty eating etc. She had been walking 70 feet with walker. She has been at her baseline mental status - is nonverbal and answers only to one verbal command "Are you ok?" and she always nods yes. She has been having pain related to her bilateral knees since the fall. Allergies Allergy/AdvReac Type Severity Reaction Status Date / Time No Known Allergies Allergy Verified 02/08/25 11:56 Home Medications Medication Instructions Recorded Confirmed Type cholecalciferol (vitamin D3) 125 125 mcg PO DAILY 05/25/24 02/08/25 History mcg (5,000 unit) capsule acetaminophen 325 mg tablet 650 mg PO Q6H PRN fever or pain 11/08/24 02/08/25 History apixaban 5 mg tablet 5 mg PO BID 11/08/24 02/08/25 History famotidine 20 mg tablet 20 mg PO DAILY #90 tabs 12/04/24 02/08/25 Rx memantine 10 mg tablet 10 mg PO BID 90 days #180 tabs 12/24/24 02/08/25 Rx nystatin 100,000 unit/gram topical 1 applic topical BID PRN itching 01/09/25 02/08/25 Rx cream #30 grams ceramides 1,3,6-II (CeraVe topical 1 applic topical DIRECTED PRN 01/22/25 02/08/25 History cream) Itching sennosides 8.6 mg tablet (Senokot) 8.6 mg PO Q OTHER DAY 01/22/25 02/08/25 History Past Med/Surg History Problem List (Updated 02/08/25 @ 15:19 by Karolyn Huynh MD) Atrial fibrillation Acute leg pain (Acute) Fall (Acute) Acute encephalopathy due to infection Ambulatory dysfunction Confusion (Acute) UTI (urinary tract infection) (Acute) B12 deficiency Dementia with behavioral disturbance (Acute) COVID-19 (Acute) Back pain (Acute) Urinary urgency Medical History Right leg DVT Acute UTI Advanced dementia Pulmonary embolism Urinary incontinence History of subarachnoid hemorrhage Hip fracture, right (12/05/23) displaced right intertrochanteric femur fracture from a fall off a ladder-had orthopedic surgery at [facility] in [place] Dementia in other diseases classified elsewhere, unspecified severity, without behavioral disturbance, psychotic disturbance, mood disturbance, and anxiety Dyslipidemia Subdural hemorrhage Traumatic subarachnoid hemorrhage Hx of fracture of right hip (~11/2023) Intramedullary nail fixation right hip History of colon polyps Poor historian pt had difficulty remembering some of her health status/issues when asked 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 Surgical History History of tooth extraction Hx of colonoscopy with polypectomy 04/2021 repeat 5 yrs S/P tonsillectomy and adenoids Family History Father Prostate cancer Dementia Hypertension Mother Diabetes Heart disease congenital heart disease, h/o CHF Hypertension Grandmother Breast cancer Grandmother (Maternal) Myocardial infarction Other No family history of adverse response to anesthesia Denies family history of Ovarian cancer Lung cancer Colorectal cancer Social History Smoking Status: Never smoker Second Hand Exposure: No; Do You Dip or Chew Tobacco: No; Hx Substance Use: No (unknown) Preferred Language: Jordanian Communication Ability: Unable Communication Ability Comment: pt has history of dementia and struggles to follow commands but is able Visual Impairment: Limited Hearing Ability: Normal 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: No Beliefs That Will Affect Care: None marital status: Current Living Situation: Spouse current occupational status: retired 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 How many Children do You have: 2 Feels Safe at Home: Yes Childhood Exposure to Second-Hand Smoke: Yes Diet: regular caffeine: Yes (very seldom) during the past year weight has: increased > 10 lbs Dental Care, Regularly: Yes Physical Activity Frequency: Does not Exercise Seatbelt Use: always Sunscreen Use: No Assistive Devices: Cane and Walker Review of Systems 2 Review of Systems: Unobtainable due to cognitive status Physical Exam 2 Physical Exam: Last 24h vitals reviewed GEN: no acute distress, sitting in bed HEENT: pupils equal, sclerae anicteric, moist MM RESP: normal WOB, CTAB CV: reg no mrg ABD: soft/nt/nd +BT : no keenan SKIN: warm and dry, no generalized rashes EXT: bilateral knee abrasions. The R knee abrasion has a thin bulla and several small bullae NEURO: Alert and nonverbal and did not follow commands for exam - verbal or by demonstration. Face symmetric, moving 4 extremities spontaneously Results & Data Results & Data Vital Signs (Past 12 Hours) Vital Signs Temp Pulse Pulse Resp BP BP Pulse Ox 02/08/25 11:00 70 16 141/80 H 96 02/08/25 10:27 70 16 143/71 H 98 02/08/25 09:41 81 02/08/25 09:40 98 02/08/25 09:27 71 02/08/25 09:26 18 02/08/25 09:26 36.9 C 74 18 144/87 H 95 O2 Del Method 02/08/25 11:00 Room Air 02/08/25 10:27 Room Air 02/08/25 09:41 02/08/25 09:40 02/08/25 09:27 02/08/25 09:26 02/08/25 09:26 Laboratory Results 02/08/25 09:46 02/08/25 09:46 LFT, lipase normal UA with pyuria Diagnostic Findings x-rays of right knee and femur negative for fracture pelvis x-ray negative for fracture head CT and CT C-spine without acute findings PG Care Time/CCT Total # of Minutes Spent Total Time Spent with Patient: Total time spent is greater than 50% in coordination of care (as documented) at patient's floor/unit and/or counseling patient: Coding Level of Care Code 23651 INT INP/OBS CARE MIN Diagnoses UTI (urinary tract infection) N30.01 Hematuria presence: with hematuria Urinary tract infection type: acute cystitis Advanced dementia F03.C0 Dementia behavioral or psychological symptom: unspecified whether behavioral, psychotic, or mood disturbance or anxiety Dementia type: unspecified type Ambulatory dysfunction R26.2 (1) UTI (urinary tract infection) Hematuria presence: with hematuria Urinary tract infection type: acute cystitis Qualified Code(s): N30.01 - Acute cystitis with hematuria (2) Advanced dementia Dementia behavioral or psychological symptom: unspecified whether behavioral, psychotic, or mood disturbance or anxiety Dementia type: unspecified type Qualified Code(s): F03.C0 - Unspecified dementia, severe, without behavioral disturbance, psychotic disturbance, mood disturbance, and anxiety
[2025-02-08] MEDS: cefTRIAXone SODIUM 2,000 MG/50 ML BAG IV STA (12:47)
[2025-02-08] MEDS ORDERED: ALUMINUM/MAGNESIUM SUSP 30 ML UDC PO PRN (15:47)
[2025-02-08] MEDS ORDERED: ACETAMINOPHEN 325 MG TAB PO PRN (15:47)
[2025-02-08] MEDS ORDERED: MELATONIN 3 MG TAB PO PRN (15:47)
[2025-02-08] MEDS ORDERED: ONDANSETRON INJ 2 MG/ML 2 ML VIAL IV PRN (15:47)
[2025-02-08] MEDS ORDERED: MAGNESIUM HYDROXIDE SUSP 30 ML UDC PO PRN (15:47)
[2025-02-08] MEDS ORDERED: POLYETHYLENE (MIRALAX) 17 GM PACK PO PRN (15:47)
[2025-02-08] MEDS: APIXABAN 5 MG TABLET PO SCH (21:03)
[2025-02-08] MEDS: MEMANTINE HCL 10 MG TAB PO SCH (21:03)
[2025-02-09] MEDS: FAMOTIDINE 20 MG TAB PO SCH (08:20)
[2025-02-09] MEDS: SENNA 8.6 MG TAB PO SCH (08:20)
[2025-02-09] MEDS: cefTRIAXone SODIUM 2,000 MG/50 ML BAG IV SCH (11:59)
[2025-02-09] MEDS ORDERED: AMOXICILLIN 500 MG CAP PO SCH (14:10)
--- NOTE | 2025-02-09 14:15 | Hospitalist Progress Note ---
Date of Service February 09, 2025 Assessment & Plan (1) UTI (urinary tract infection): (2) Advanced dementia: (3) Ambulatory dysfunction: Plan 74 y/o with advanced dementia, history of DVT/PE on apixaban, recently admitted 01/22-01/26 with aerococcus UTI and discharged to [facility] 01/26-02/04. Yesterday was weak and virtually fell out of car, caught by her . Since then has been very weak and unable to ambulate or get out of bed. ED evaluation notable for pyuria, normal WBC and unremarkable vital signs. ED imaging was negative for fractures or other acute issues # UTI -urine culture: taylor-sensitive E. faecalis. Discussed with pharmacist and stopped ceftriaxone, changed to amoxicillin 875 mg po bid for better enterococcus coverage # Ambulatory dysfunction -PT/OT - awaiting eval # Acute metabolic encephalopathy # Advanced dementia -treat infection -continue memantine -delirium precautions # Hx DVT/PE -head CT neg for ICH -continue apixaban # Hx B12 deficiency -no level >2 years - recheck --> 216 low normal -start oral supplement knee abrasions - wound care VTE ppx - anticoagulated Her acknowledges that her living will says DNR but he wants her to be full code. We did discuss expected outcomes of CPR in her situation. Fortunately she is very stable at this time. Suitable for discharge home if/when she is ambulatory enough for her to care for her Updated her at bedside today Admission and Anticipated Discharge Date Admission Date: February 08, 2025 Subjective Edie is eating lunch with her at her side. She doesn't report symptoms but he hasn't noticed any pain or discomfort Has not seen PT yet Eating well so far Physical Exam Physical Exam: Last 24h vitals reviewed GEN: no acute distress, sitting in bed, eating lunch HEENT: pupils equal, sclerae anicteric, moist MM RESP: nonlabored CV: ABD: no abd or sp tenderness : purewick SKIN: warm and dry, no generalized rashes EXT: bilateral knee abrasions. R knee covered in foam dressing. L abrasion is superficial and healing NEURO: Alert and nonverbal and does not follow commands. Feeding self. Face symmetric, moving 4 extremities spontaneously Results & Data Results & Data Vital Signs (Past 12 Hours) Vital Signs Temp Pulse Resp BP Pulse Ox O2 Del Method 02/09/25 07:30 Room Air 02/09/25 07:08 36.7 C 68 16 119/70 96 Room Air PG Care Time/CCT Total # of Minutes Spent Total Time Spent with Patient: Total time spent is greater than 50% in coordination of care (as documented) at patient's floor/unit and/or counseling patient: Coding Level of Care Code 37000 SUB INP/OBS CARE 2/35MIN Diagnoses UTI (urinary tract infection) N30.00 Hematuria presence: without hematuria Urinary tract infection type: acute cystitis Advanced dementia F03.C0 Dementia behavioral or psychological symptom: unspecified whether behavioral, psychotic, or mood disturbance or anxiety Dementia type: unspecified type Ambulatory dysfunction R26.2 (1) UTI (urinary tract infection) Hematuria presence: without hematuria Urinary tract infection type: acute cystitis Qualified Code(s): N30.00 - Acute cystitis without hematuria (2) Advanced dementia Dementia behavioral or psychological symptom: unspecified whether behavioral, psychotic, or mood disturbance or anxiety Dementia type: unspecified type Qualified Code(s): F03.C0 - Unspecified dementia, severe, without behavioral disturbance, psychotic disturbance, mood disturbance, and anxiety
[2025-02-09] MEDS: AMOXICILLIN 875 MG TAB PO SCH (14:51)
--- NOTE | 2025-02-10 07:47 | Hospitalist Progress Note ---
Date of Service February 10, 2025 Assessment & Plan (1) UTI (urinary tract infection): (2) Advanced dementia: (3) Ambulatory dysfunction: Plan 74 y/o with advanced dementia, history of DVT/PE on apixaban, recently admitted 01/22-01/26 with aerococcus UTI and discharged to [facility] 01/26-02/04. Yesterday was weak and virtually fell out of car, caught by her . Since then has been very weak and unable to ambulate or get out of bed. ED evaluation notable for pyuria, normal WBC and unremarkable vital signs. ED imaging was negative for fractures or other acute issues # UTI -urine culture: taylor-sensitive E. faecalis. continue amoxicillin 875 mg po bid - recurrent UTI has been a problem, trial of methenamine # B12 deficiency - history of this and has not been on a supplement recently which I confirmed with her level 216 which is borderline. Rather than wait for MMA level, will empirically replace. Started 1000 mcg IM daily on 02/10 x 7 days then change to weekly - TSH recently normal # Ambulatory dysfunction -PT/OT - awaiting documentation but was not ambulatory # Acute metabolic encephalopathy # Advanced dementia -treat infection -continue memantine -delirium precautions # Hx DVT/PE -head CT neg for ICH -continue apixaban knee abrasions - wound care VTE ppx - anticoagulated Her acknowledges that her living will says DNR but he wants her to be full code. We did discuss expected outcomes of CPR in her situation. Fortunately she is very stable at this time. discussed with case management who will place referral to [facility] Updated her at bedside 02/10 Admission and Anticipated Discharge Date Admission Date: February 08, 2025 Subjective seen with her at bedside, she is not really able to verbalize symptoms but appears comfortable, he reports she has been eating well, however, the PT session this morning did not go very well she was able to stand but was not able to initiate walking Physical Exam Physical Exam: Last 24h vitals reviewed GEN: awake alert and sitting in bed HEENT: pupils equal, sclerae anicteric, moist MM RESP: nonlabored clear to auscultation bilaterally CV: regular no murmurs rubs or gallops ABD: nontender and nondistended : purewick SKIN: warm and dry, no generalized rashes EXT: bilateral knee abrasions. R knee large bulla has flattened continues to have some small bulla laterally, no purulent drainage or significant erythema. L abrasion is superficial and healing NEURO: Alert and nonverbal and does not follow commands. Face symmetric, moving 4 extremities spontaneously Results & Data Results & Data Vital Signs (Past 12 Hours) Vital Signs Temp Pulse Resp BP Pulse Ox O2 Del Method 02/10/25 06:54 36.7 C 74 16 123/88 96 Room Air 02/09/25 19:48 37.2 C 94 H 16 115/76 92 Room Air Laboratory Results B12 216 PG Care Time/CCT Total # of Minutes Spent Total Time Spent with Patient: Total time spent is greater than 50% in coordination of care (as documented) at patient's floor/unit and/or counseling patient: Coding Level of Care Code 11870 SUB INP/OBS CARE 2MIN Diagnoses UTI (urinary tract infection) N30.00 Hematuria presence: without hematuria Urinary tract infection type: acute cystitis Advanced dementia F03.C0 Dementia behavioral or psychological symptom: unspecified whether behavioral, psychotic, or mood disturbance or anxiety Dementia type: unspecified type Ambulatory dysfunction R26.2 (1) UTI (urinary tract infection) Hematuria presence: without hematuria Urinary tract infection type: acute cystitis Qualified Code(s): N30.00 - Acute cystitis without hematuria (2) Advanced dementia Dementia behavioral or psychological symptom: unspecified whether behavioral, psychotic, or mood disturbance or anxiety Dementia type: unspecified type Qualified Code(s): F03.C0 - Unspecified dementia, severe, without behavioral disturbance, psychotic disturbance, mood disturbance, and anxiety
[2025-02-10] MEDS: POLYETHYLENE (MIRALAX) 17 GM PACK PO SCH (08:11)
[2025-02-10] MEDS: CYANOCOBALAMIN 1000 MCG/ML VIAL IM SCH (08:18)
--- NOTE | 2025-02-10 22:25 | Electrocardiogram Report ---
Test Reason : Blood Pressure : */* mmHG Vent. Rate : 73 BPM Atrial Rate : 73 BPM P-R Int : 186 ms QRS Dur : 78 ms QT Int : 400 ms P-R-T Axes : 57 18 50 degrees QTcB Int : 440 ms Normal sinus rhythm Normal ECG When compared with ECG of 08-Feb-2025 19:53, Criteria for Septal infarct are no longer Present Confirmed by Kings Hancock ([id number]) on 02/10/2025 10:25:21 PM Referred By: REFERRED SELF Confirmed By: Kings Hancock
--- NOTE | 2025-02-10 22:25 | Electrocardiogram Report ---
Test Reason : Blood Pressure : */* mmHG Vent. Rate : 74 BPM Atrial Rate : 74 BPM P-R Int : 184 ms QRS Dur : 68 ms QT Int : 390 ms P-R-T Axes : 56 -3 47 degrees QTcB Int : 432 ms Normal sinus rhythm Possible Left atrial enlargement Septal infarct , age undetermined Abnormal ECG When compared with ECG of 08-Feb-2025 09:45, Septal infarct is now Present Confirmed by Kings Hancock ([id number]) on 02/10/2025 10:25:10 PM Referred By: REFERRED SELF Confirmed By: Kings Hancock
--- NOTE | 2025-02-10 22:25 | Electrocardiogram Report ---
Test Reason : Blood Pressure : */* mmHG Vent. Rate : 73 BPM Atrial Rate : 73 BPM P-R Int : 182 ms QRS Dur : 72 ms QT Int : 410 ms P-R-T Axes : 73 -5 31 degrees QTcB Int : 451 ms Normal sinus rhythm Normal ECG When compared with ECG of 22-Jan-2025 15:21, No significant change was found Confirmed by Kings Hancock ([id number]) on 02/10/2025 10:24:51 PM Referred By: REFERRED SELF Confirmed By: Kings Hancock
--- NOTE | 2025-02-11 19:48 | Hospitalist Progress Note ---
Date of Service February 11, 2025 Assessment & Plan (1) UTI (urinary tract infection): (2) Advanced dementia: (3) Ambulatory dysfunction: Plan 74 y/o with advanced dementia, history of DVT/PE on apixaban, recently admitted 01/22-01/26 with aerococcus UTI and discharged to [facility] 01/26-02/04. Yesterday was weak and virtually fell out of car, caught by her . Since then has been very weak and unable to ambulate or get out of bed. ED evaluation notable for pyuria, normal WBC and unremarkable vital signs. ED imaging was negative for fractures or other acute issues no events or changes to the plan of care today, discussed with healthcare market consultant - will discharge tomorrow to [facility] for rehab # UTI -urine culture: taylor-sensitive E. faecalis. continue amoxicillin 875 mg po bid - recurrent UTI has been a problem, trial of methenamine following antibiotics # B12 deficiency - history of this and has not been on a supplement recently which I confirmed with her level 216 which is borderline. Rather than wait for MMA level, will empirically replace. Started 1000 mcg IM daily on 02/10 x 7 days then change to weekly - TSH recently normal # Ambulatory dysfunction -PT/OT # Acute metabolic encephalopathy # Advanced dementia -treat infection -continue memantine -delirium precautions -now at usual baseline mental status # Hx DVT/PE -head CT neg for ICH -continue apixaban knee abrasions - wound care VTE ppx - anticoagulated Her acknowledges that her living will says DNR but he wants her to be full code. We did discuss expected outcomes of CPR in her situation. Fortunately she is very stable at this time. Updated her at bedside 02/10 Admission and Anticipated Discharge Date Admission Date: February 10, 2025 Subjective No events She cannot answer questions about symptoms Appears comfortable Physical Exam Physical Exam: Last 24h vitals reviewed GEN: awake alert and sitting in bed no change in exam 02/11 HEENT: pupils equal, sclerae anicteric, moist MM RESP: nonlabored clear to auscultation bilaterally CV: regular no murmurs rubs or gallops ABD: nontender and nondistended : purewick SKIN: warm and dry, no generalized rashes EXT: bilateral knee abrasions. dressed NEURO: Alert and nonverbal and does not follow commands. Face symmetric, moving 4 extremities spontaneously Results & Data Results & Data Vital Signs (Past 12 Hours) Vital Signs Temp Pulse Resp BP Pulse Ox O2 Del Method 02/11/25 12:08 36.3 C L 78 15 132/84 94 Room Air 02/11/25 07:50 36.8 C 74 16 105/71 92 Room Air PG Care Time/CCT Total # of Minutes Spent Total Time Spent with Patient: Total time spent is greater than 50% in coordination of care (as documented) at patient's floor/unit and/or counseling patient: Coding Level of Care Code 16592 SUB INP/OBS CARE 2/35MIN Diagnoses UTI (urinary tract infection) N30.00 Hematuria presence: without hematuria Urinary tract infection type: acute cystitis Advanced dementia F03.C0 Dementia behavioral or psychological symptom: unspecified whether behavioral, psychotic, or mood disturbance or anxiety Dementia type: unspecified type Ambulatory dysfunction R26.2 (1) UTI (urinary tract infection) Hematuria presence: without hematuria Urinary tract infection type: acute cystitis Qualified Code(s): N30.00 - Acute cystitis without hematuria (2) Advanced dementia Dementia behavioral or psychological symptom: unspecified whether behavioral, psychotic, or mood disturbance or anxiety Dementia type: unspecified type Qualified Code(s): F03.C0 - Unspecified dementia, severe, without behavioral disturbance, psychotic disturbance, mood disturbance, and anxiety
[2025-02-12 07:30] VITALS: BP 137/82; PULSE 73; RESP 16; TEMP 98.2; O2SAT 93
--- NOTE | 2025-02-12 19:40 | Discharge Summary ---
Discharge Summary Date of Service February 12, 2025 Principal Dx & Hospital Course #1 = Principal Diagnosis (1) UTI (urinary tract infection): (2) Advanced dementia: (3) Ambulatory dysfunction: Plan 74 y/o with advanced dementia, history of DVT/PE on apixaban, recently admitted 01/22-01/26 with aerococcus UTI and discharged to [facility] 01/26-02/04. Yesterday was weak and virtually fell out of car, caught by her . Since then has been very weak and unable to ambulate or get out of bed. ED evaluation notable for pyuria, normal WBC and unremarkable vital signs. ED imaging was negative for fractures or other acute issues # UTI -urine culture: taylor-sensitive E. faecalis. continue amoxicillin 875 mg po bid - recurrent UTI has been a problem, would recommend starting vaginal estrace cream, consider trial of methenamine following antibiotics # B12 deficiency - history of this and has not been on a supplement recently which I confirmed with her level 216 which is borderline. Rather than wait for MMA level, will empirically replace. Started 1000 mcg IM daily on 02/10 x 7 days then change to weekly - TSH recently normal # Ambulatory dysfunction -PT/OT # Acute metabolic encephalopathy # Advanced dementia -treat infection -continue memantine -delirium precautions -now at usual baseline mental status # Hx DVT/PE -head CT neg for ICH -continue apixaban knee abrasions - wound care VTE ppx - anticoagulated Her acknowledges that her living will says DNR but he wants her to be full code. We did discuss expected outcomes of CPR in her situation. Fortunately she is very stable at this time. Updated her at bedside 02/10 Notes For Next Care Provider please start vaginal estrace cream - was not on DC orders consider menthenamine replace B12 Admission HPI Per Admitting Provider Edie is nonverbal so entire history is obtained from her at bedside and also review of previous hospital and primary care records. 74 y/o with advanced dementia, history of DVT/PE on apixaban who was hospitalized earlier this month for aerococcus UTI and discharged to [facility]. She was home a few days with her and doing well until yesterday afternoon, when she fell. They had been to an appointment and errands yesterday morning and she did fine. After arriving home he was helping her get from the car up to her walker and she buckled. He was able to lower her to sitting on the door sill, then she went down onto her knees sustaining abrasions and head went down onto walker seat. A neighbor and a mailman helped lift her up. Was able to get her to bed, but in AM she was unable to get up out of bed. Brought in to ED. He had not noticed any symptoms prior to yesterday afternoon. No F/C, cough/dyspnea, N/V/D, difficulty eating etc. She had been walking 70 feet with walker. She has been at her baseline mental status - is nonverbal and answers only to one verbal command "Are you ok?" and she always nods yes. She has been having pain related to her bilateral knees since the fall. Discharge Exam Last 24h vitals reviewed GEN: no acute distress, sitting in bed HEENT: pupils equal, sclerae anicteric, moist MM RESP: normal WOB, CTAB CV: reg no mrg ABD: soft/nt/nd +BT : no keenan SKIN: warm and dry, no generalized rashes NEURO: AOx self only. Doesn't follow commands. Face symmetric, speaks very little, moves 4 ext spontaneously and equally Discharge Plan Discharge Items Patient Disposition: Transfer Residential Fac Reason For Visit: UTI Discharge Diagnosis: UTI, advanced dementia Condition on Discharge: Fair Activity: Resume your previous activity Non-emergency contact: Primary Care Provider Call non-emergency contact if: you have any medication questions and your symptoms worsen Follow-up/Referrals: Vaughn Jefferson DO [Primary Care Provider] - Diet: Regular Addtl Attending Provider Instructions: PT and OT evaluate and treat # UTI -urine culture: taylor-sensitive E. faecalis. continue amoxicillin 875 mg po bid - recurrent UTI has been a problem, trial of methenamine following antibiotics # B12 deficiency - history of this and has not been on a supplement recently which I confirmed with her level 216 which is borderline. Rather than wait for MMA level, will empirically replace. Started 1000 mcg IM daily on 02/10 x 7 days then change to weekly - TSH recently normal Her acknowledges that her living will says DNR but he wants her to be full code. We did discuss expected outcomes of CPR in her situation. Warrants ongoing/further discussion Pending Studies at Discharge: No Stand-Alone Forms: My [facility] Skilled Items Patient informed of condition?: Yes DNR: No Discharge Level of Care: Skilled Communicable Disease: No Discharge Prognosis: Stable Lines: None Urinary Catheter: No Medications and DC Order Prescriptions: New amoxicillin 875 mg Tablet 875 mg PO BID Qty: 0 0RF Rx Instructions: last dose pm of 02/14 completes seven days treatment polyethylene glycol 3350 [Miralax] 17 gram Powder In Packet 17 g PO DAILY Qty: 0 0RF sennosides [Senna Lax] 8.6 mg Tablet 8.6 mg PO DAILY Qty: 0 0RF cyanocobalamin (vitamin B-12) 1,000 mcg/mL Solution 1,000 mcg IM QAM Qty: 0 0RF Rx Instructions: last dose 02/18 then change to weekly dosing Continued acetaminophen 325 mg tablet 650 mg PO Q6H PRN (Reason: fever or pain) Patient Comments: CONFIRMED W/ PT'S AND ON [facility] MED LIST 11/08/24 apixaban 5 mg tablet 5 mg PO BID Patient Comments: CONFIRMED W/ PT'S AND [facility] MED LIST 11/08/24 famotidine 20 mg tablet 20 mg PO DAILY Qty: 90 3RF memantine 10 mg tablet 10 mg PO BID 90 Days Qty: 180 3RF cholecalciferol (vitamin D3) 125 mcg (5,000 unit) capsule 125 mcg PO DAILY nystatin 100,000 unit/gram cream 1 applic topical BID PRN (Reason: itching) Qty: 30 4RF ceramides 1,3,6-II [CeraVe] Cream 1 applic TOPICAL DIRECTED PRN (Reason: Itching) Discontinued sennosides [Senokot] 8.6 mg tablet 8.6 mg PO Q OTHER DAY Discharge Orders: Discharge Order (Routine); Ordered 02/12/25 Ordered By: Karolyn Dailey/Other Patient Handouts: Urinary Tract Infections in Women Admission Data Admit Date/Time: 02/10/25 12:46 Attending Provider: Karolyn Huynh Admit Provider: Karolyn Huynh Primary Care Provider: Vaughn Jefferson Other Providers: Karolyn Huynh; [place] Other Interventions: Discharge Summary Assessment (RN) Last Done: 02/12/25 11:47 Hospital Stay Data Consultations 02/08/25 11:35 ED Decision to Admit Stat Diagnostic Imagining Performed 02/08/25 09:40 CT cervical spine wo con Stat CT head/brain wo con Stat Pending Results Patient Have Any Pending Studies at Discharge: No Discharge Instructions Given to Patient (Per Discharging Provider) PT and OT evaluate and treat # UTI -urine culture: taylor-sensitive E. faecalis. continue amoxicillin 875 mg po bid - recurrent UTI has been a problem, trial of methenamine following antibiotics # B12 deficiency - history of this and has not been on a supplement recently which I confirmed with her level 216 which is borderline. Rather than wait for MMA level, will empirically replace. Started 1000 mcg IM daily on 02/10 x 7 days then change to weekly - TSH recently normal Her acknowledges that her living will says DNR but he wants her to be full code. We did discuss expected outcomes of CPR in her situation. Warrants ongoing/further discussion Total Time Total Time Spent Total Time Spent (In Minutes): I personally spent: 35 minutes today on clinical care activities including: reviewing chart notes and vital signs discussion with director of managed care examining the patient writing orders writing prescriptions, discharge instructions documentation Coding Level of Care Code 46278 INP/OBS DISCH >30 MIN Diagnoses UTI (urinary tract infection) N30.00 Hematuria presence: without hematuria Urinary tract infection type: acute cystitis Advanced dementia F03.C0 Dementia behavioral or psychological symptom: unspecified whether behavioral, psychotic, or mood disturbance or anxiety Dementia type: unspecified type Ambulatory dysfunction R26.2
== END 2025-02-12 15:31 | DRG 689 ==
LOC: ED 09:33 → 3N 09:33